=== PATIENT | female | born 2000 | race Hispanic/Latino ===

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

== ENCOUNTER 2018-02-18 18:38 | Emergency (ER) | payer OTHER ==
--- NOTE | 2018-02-18 19:32 | ER ---
Nurse's Notes [facility] Name: Lindsay Santiago Age: 17 yrs Sex: Female : 2000 Arrival Date: 02/18/2018 Time: 18:41 Bed 27 Private MD: None, None Diagnosis: Presentation: 02/18 18:44 Presenting complaint: Patient states: rory been having chest pain on the L lower breast hj around 5 pm today; reports SOB; denies nausea and vomiting;. Transition of care: patient was not received from another setting of care. Onset of symptoms was February 18, 2018. Risk Assessment: Do you want to hurt yourself or someone else? Patient reports no desire to harm self or others. Initial Sepsis Screen: Does the patient meet any 2 criteria? No. Patient's initial sepsis screen is negative. Does the patient have a suspected source of infection? No. Patient's initial sepsis screen is negative. Care prior to arrival: None. 18:44 Method Of Arrival: Ambulatory 18:44 Acuity: TAMIKA 3 Triage Assessment: 18:46 General: Appears in no apparent distress. uncomfortable, Behavior is calm, cooperative, hj appropriate for age. Pain: Complains of pain in left breast Pain does not radiate. Cardiovascular: Capillary refill < 3 seconds Patient's skin is warm and dry. 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 - Social history:: Smoking status: Patient/guardian denies using tobacco, Patient/guardian denies using alcohol. - Ebola Screening: : Patient negative for fever greater than or equal to 101.5 degrees Fahrenheit, and additional compatible Ebola Virus Disease symptoms Patient denies exposure to infectious person Patient denies travel to an Ebola-affected area in the 21 days before illness onset. Screenin:46 Abuse screen: Denies threats or abuse. Denies injuries from another. Nutritional hj screening: No deficits noted. Tuberculosis screening: No symptoms or risk factors identified. Fall Risk None identified. Assessment: 18:47 Pain: Pain began 1 day ago. hj 19:17 General: Appears in no apparent distress. comfortable, Behavior is calm, cooperative. mg2 Pain: Complains of pain in chest and left breast Pain does not radiate. Pain currently is 7 out of 10 on a pain scale. Quality of pain is described as sharp, Is intermittent. Neuro: Level of Consciousness is awake, alert, obeys commands, Oriented to person, place, time, situation. Cardiovascular: Capillary refill < 3 seconds Patient's skin is warm and dry. Respiratory: Airway is patent Respiratory effort is even, unlabored, Respiratory pattern is regular, symmetrical. GI: No signs and/or symptoms were reported involving the gastrointestinal system. : No signs and/or symptoms were reported regarding the genitourinary system. EENT: No signs and/or symptoms were reported regarding the EENT system. Derm: Skin is intact, Skin is pink, warm \T\ dry. normal. Musculoskeletal: Circulation, motion, and sensation intact. 19:26 Reassessment: patient was not seen by the physician. she wants to go home because of mg2 his son. patient left ed unseen. Vital Signs: 18:47 BP 112 / 69; Pulse 77; Resp 18; Temp 98.2(TE); Pulse Ox 97% on R/A; Weight 54.43 kg; hj Height 5 ft. 1 in. (154.94 cm); Pain 7/10; 18:47 Body Mass Index 22.67 (54.43 kg, 154.94 cm) ED Course: 18:41 Patient arrived in ED. mr 18:42 None, None is Private Physician. mr 18:46 Triage completed. hj 18:47 Arm band placed on right wrist. hj 18:47 batch maker on. Pulse ox on. NIBP on. hj 19:15 Gerard Ruby MD is Attending Physician. rn 19:17 Jeovanny Freed, BLAKE is Primary Nurse. mg2 Administered Medications: No medications were administered Outcome: 19:31 Patient left the ED. mg2 Signatures: Nirali Rod mr Gerard Ruby MD MD rn Joaquin, Henry, RN RN Jeovanny Freed RN RN mg2
--- NOTE | 2018-02-19 09:21 | EKG ---
Test Date: 2018-02-18 Test Time: 18:52:43 Automobile Mechanic Helper: SELENE MEASUREMENT RESULTS: Intervals: Rate: 74 [place]: 82 QRSD: 130 QT: 392 QTc: 435 [place]: P: 19 [place]: 82 QRS: -22 T: 95 INTERPRETIVE STATEMENTS: Normal sinus rhythm [id number] Abnormal ECG Compared to ECG 12/25/2017 17:46:19 Sinus arrhythmia no longer present Electronically Signed On 02-19-18 07:33:40 CDT by Rene Mcknight
== END 2018-02-18 19:31 | disposition left against medical advice (07) ==
LOC: ER 18:38
DX: Z53.21 Procedure and treatment not carried out due to patient leaving prior to being seen by health care provider (principal)
CPT/HCPCS: 93005; 99284

== ENCOUNTER 2019-10-18 18:08 | Emergency (ER) | payer OTHER ==
--- OUTSIDE RECORDS SUMMARY | 2019-10-18 18:13 | XMS REPORT ---
:2000 [facility] Address [address] [place] [address] Care Team Providers Name Role Phone CHAPINCITO SERRANO Unavailable Unavailable ELEANOR, DR LAURA Pak Unavailable Unavailable FARRUKH, DR FARZANA HAGEN Unavailable Unavailable NIELS, DR EASTON Unavailable Unavailable BIANCA, DR FAIZAN Reddy Unavailable Unavailable BERONICA, DR HOWELL Unavailable Unavailable HERNANDEZ JESUS, MARGARITA MENDEZ Unavailable Unavailable RISA, DR YOAV Dinh Unavailable Unavailable BA, DR ACUÑA Unavailable Unavailable KAREN, DR HOLGUIN Unavailable Unavailable POTEPALOV, DR BRIAN Tyler Unavailable Unavailable OEI, DR HAMILTON Unavailable Unavailable Problems This patient has no known problems. Allergies, Adverse Reactions, Alerts This patient has no known allergies or adverse reactions. Medications This patient has no known medications. Encounters Start End Encounter Admission Attending Care Care Encounter Date/Time Date/Time Type Type Clinicians Facility Department ID 2019-10-05 Inpatient [place] [facility] [place] [id number] 14:45:00 CHAPINCITO 2019-09-15 2019-09-15 Emergency Mellisa [facility] [id number] 10:06:00 11:30:00 LAURA 2019-09-04 2019-09-04 Emergency Mellisa [facility] [id number] 09:01:00 09:55:00 FARZANA HAGEN 2019-07-30 2019-07-31 Emergency E NIELS [facility] [place] [facility] [id number] 23:29:00 00:40:00 RUSTAM 2019-07-08 2019-07-09 Emergency E FAIZAN VALENZUELA [facility] [place] [facility] [id number] 23:31:00 01:46:00 2019-04-22 2019-04-22 Emergency E DANTE LOCO [facility] [place] [facility] [id number] 11:33:00 11:50:00 2019-03-14 2019-03-14 Emergency E RISA [facility] [id number] 10:55:00 13:00:00 2019-03-13 2019-03-13 Emergency E ARIANNE SHEARER [facility] [id number] 07:11:00 09:06:00 2019-02-05 2019-02-05 Emergency E RISA, [facility] [id number] 07:32:00 09:45:00 YOAV 2018-12-02 2018-12-02 Emergency E EZIO JONES [facility] [id number] 03:57:00 04:35:00 2018-10-04 2018-10-05 Outpatient E CK, [facility] [place] [id number] 21:48:00 03:05:00 BRIAN 2018-05-10 2018-05-10 Outpatient E DEMETRIA, [facility] [id number] 12:53:00 14:30:00 ALFONSO Results Test Description Test Time Test Comments Text Results Atomic Results Result Comments XR CHEST 1 VIEW PORTABLE 2019-07-31 00:31:52 LOCATION: H43 EXAM: XR CHEST 1 VIEW PORTABLEHISTORY: [id number]: Dyspnea TECHNIQUE: Frontal view of the chest.COMPARISON: 03/14/2019FINDINGS:The lungs are well inflated and clear. No evidence of pneumothorax or pleural effusion. The heart is normal in size. The mediastinal contours are unremarkable. Osseous structures are intact. IMPRESSION:No evidence of acute cardiopulmonary disease. D-DIMER 2019-07-31 00:23:00 Test Item Value Reference Range Comments D-DIMER (test code=DDI) <200 ng/mL D-DU 0-234 D-DIMER COMMENT (test code=DDCOM) *Level to rule out DVT or PE: <235 ng/mL D-DU* COMPREHENSIVE METABOLIC [id number] 00:17:00 Test Item Value Reference Range Comments GLUCOSE (test code=06D) 91 mg/dL 75-100 SODIUM (test code=01A) 139 mmol/L 136-145 POTASSIUM (test code=01B) 3.5 mmol/L 3.6-5.1 CHLORIDE (test code=04A) 107 mmol/L 98-107 CO2 (test code=02A) 27 mmol/L 22-32 ANION GAP (test code=ANG) 8.5 mmol/L BUN (test code=05D) 11 mg/dL 7-18 CREATININE (test code=03E) 0.8 mg/dL 0.4-1.1 BUN/CREA (test code=BCR) 13 12-20 CALCIUM (test code=09D) 8.3 mg/dL 8.3-9.5 BILI TOTAL (test code=11A) 1.1 mg/dL 0.2-1.0 PROTEIN (test code=07D) 7.5 g/dL 6.4-8.2 ALBUMIN (test code=08D) 4.1 g/dL 3.5-4.8 GLOBULIN (test code=GLB) 3.4 g/dL 1.5-3.8 ALB/GLOB (test code=AGRR) 1.2 1.0-2.6 ALK PHOS (test code=35A) 69 IU/L 42-121 AST (test code=30A) 14 IU/L <=42 ALT (test code=31A) 23 IU/L <=78 TROPONIN [id number] 00:14:00 Test Item Value Reference Range Comments TROPONIN I (test code=A84) <0.015 ng/mL 0.000-0.045 URINE [id number] 00:03:00 Test Item Value Reference Range Comments PREG UR (test code=PGU) NEGATIVE NEGATIVE CBC (INCLUDES AUTOMATED DIFFERENTIAL)2019-07-30 23:59:00 Test Item Value Reference Range Comments WBC (test code=WBC) 8.4 10\S\3/uL 4.5-11.0 RBC (test code=RBC) 4.31 10\S\6/uL 4.30-5.70 HGB (test code=HBG) 13.6 g/dL 12.0-15.5 HCT (test code=HCT) 39.3 % 35.0-44.0 MCV (test code=MCV) 91.2 fL 81.0-99.0 MCH (test code=MCH) 31.6 pg 27.0-31.0 MCHC (test code=MCHC) 34.6 g/dL 32.0-36.0 RDW (test code=RDW) 12.7 % 11.5-14.5 PLT (test code=PLT) 299 10\S\3/uL 130-400 MPV (test code=MPV) 10.5 fL 9.4-12.4 NEUTROP # (test code=NE#) 4.5 10\S\3/uL 1.6-8.0 LYMPH # (test code=LY#) 2.9 10\S\3/uL 1.1-3.5 MONOCYTE # (test code=MO#) 0.7 10\S\3/uL 0.0-1.1 EOSINOPH # (test code=EO#) 0.2 10\S\3/uL 0.0-0.7 BASOPHIL # (test code=BA#) 0.1 10\S\3/uL 0.0-0.3 IG # (test code=IG#) 0.02 10\S\3/uL 0.00-0.06 NRBC # (test code=NRBC#) 0.00 10\S\3/uL 0.00-0.01 NEUTROPH % (test code=NE%) 53.3 % 35.0-73.0 LYMPH % (test code=LY%) 35.0 % 20.0-55.0 MONO % (test code=MO%) 7.9 % 2.5-10.0 EOSINOPH % (test code=EO%) 2.9 % 0.0-5.0 BASOPHIL % (test code=BA%) 0.7 % 0.0-2.0 IG % (test code=IG%) 0.2 % 0.0-0.8 NRBC% (test code=NRBC%) 0.0 % 0.0-0.2 MANDIFF (test code=MDIFF) NO NO RBC MORPH (test code=RBCMOR) NORMAL CT ABDOMEN AND PELVIS WITH [id number] 00:48:44EXAM: CT abdomen pelvis with contrastLOCATION: [id number]: Lower abdominal painTECHNIQUE: Contrast enhanced CT of the abdomen and pelvis. Coronal and sagittalreformats are provided.This exam was performed according to our departmental dose optimizationprogram, which includes automated exposure control, adjustment of the mA and/orkV according to patient size and/or use of iterative reconstruction technique.COMPARISON: NoneFINDINGS:Thoracic: Included images of the lower chest demonstrate no abnormalities.Hepatobiliary: The liver is normal without focal lesion. The gallbladder isnormal. No biliary dilation.Pancreas: Normal. Spleen: Normal. Adrenals: Normal.Genitourinary: The kidneys are normal. Nohydronephrosis. Evaluation of thebladder is limited, but no obvious bladder abnormality is present. Gastrointestinal: No bowel obstruction or perienteric inflammation. Theappendix is normal. Vascular: No evidence of aneurysm or dissection. Lymphatics: No enlarged lymph nodes by CT size criteria.Bones/Soft Tissues: No acute osseous findings. No ventral hernias.Peritoneum/Other: No extraluminal air. No extraluminal fluid. IMPRESSION:No acute findings. Normal appendix.AMYLASE AND [id number] 00:09 :00 Test Item Value Reference Range Comments AMYLASE (test code=10A) 62 U/L 28-100 LIPASE (test code=60A) 128 IU/L 73-393 COMPREHENSIVE METABOLIC [id number] 00:09:00 Test Item Value Reference Range Comments GLUCOSE (test code=06D) 114 mg/dL 75-100 SODIUM (test code=01A) 138 mmol/L 136-145 POTASSIUM (test code=01B) 3.8 mmol/L 3.6-5.1 CHLORIDE (test code=04A) 105 mmol/L 98-107 CO2 (test code=02A) 29 mmol/L 22-32 ANION GAP (test code=ANG) 7.8 mmol/L BUN (test code=05D) 12 mg/dL 7-18 CREATININE (test code=03E) 0.9 mg/dL 0.4-1.1 BUN/CREA (test code=BCR) 14 12-20 CALCIUM (test code=09D) 8.8 mg/dL 8.3-9.5 BILI TOTAL (test code=11A) 1.0 mg/dL 0.2-1.0 PROTEIN (test code=07D) 8.2 g/dL 6.4-8.2 ALBUMIN (test code=08D) 4.3 g/dL 3.5-4.8 GLOBULIN (test code=GLB) 3.9 g/dL 1.5-3.8 ALB/GLOB (test code=AGRR) 1.1 1.0-2.6 ALK PHOS (test code=35A) 79 IU/L 42-121 AST (test code=30A) 13 IU/L <=42 ALT (test code=31A) 24 IU/L <=78 URINALYSIS WITH [id number] 00:05:00 Test Item Value Reference Range Comments COLOR (test code=COLU) YELLOW YELLOW CLARITY (test code=CLA) CLEAR CLEAR GLUCOSE UR (test code=UA GLUCOSE) NEGATIVE NEGATIVE BILI UR (test code=BILE) NEGATIVE NEGATIVE KETONES UR (test code=LUIS) NEGATIVE NEGATIVE SP GRAVITY (test code=SPGR) 1.022 1.005-1.030 PH UR (test code=PH) 7.0 4.5-8.0 PROTEIN UR (test code=PU) NEGATIVE NEGATIVE UROBIL UR (test code=UROQ) 1.0 EU/dL 0.2-1.0 NITRITE UR (test code=NITRITE) NEGATIVE NEGATIVE BLOOD UR (test code=UA BLOOD) 2+ NEGATIVE LEUK ES UR (test code=LEUK) 2+ NEGATIVE WBC UR (test code=UWBC) 5 /HPF 0-5 RBC UR (test code=URBC) 6 /HPF 0-2 EPITH UR (test code=UEPC) FEW /LPF FEW BACTERIA UR (test code=UBACT) FEW /HPF NONE CAST UR (test code=CAST) /LPF NONE CRYSTAL UR (test code=CRYU) / LPF NONE MUCUS UR (test code=MUC) / HPF NONE AMORPH UR (test code=MELIDA) / HPF NONE TRICH UR (test code=UTRICH) /HPF NONE YEAST UR (test code=UY) /HPF NONE SPERM UR (test code=USPERM) /HPF NONE SERUM [id number] 00:01:00 Test Item Value Reference Range Comments PREG SRM (test code=PGS) NEGATIVE NEGATIVE CBC (INCLUDES AUTOMATED DIFFERENTIAL)2019-07-08 23:54:00 Test Item Value Reference Range Comments WBC (test code=WBC) 8.4 10\S\3/uL 4.5-11.0 RBC (test code=RBC) 4.48 10\S\6/uL 4.30-5.70 HGB (test code=HBG) 14.1 g/dL 12.0-15.5 HCT (test code=HCT) 41.6 % 35.0-44.0 MCV (test code=MCV) 92.9 fL 81.0-99.0 MCH (test code=MCH) 31.5 pg 27.0-31.0 MCHC (test code=MCHC) 33.9 g/dL 32.0-36.0 RDW (test code=RDW) 12.7 % 11.5-14.5 PLT (test code=PLT) 314 10\S\3/uL 130-400 MPV (test code=MPV) 10.6 fL 9.4-12.4 NEUTROP # (test code=NE#) 4.9 10\S\3/uL 1.6-8.0 LYMPH # (test code=LY#) 2.5 10\S\3/uL 1.1-3.5 MONOCYTE # (test code=MO#) 0.7 10\S\3/uL 0.0-1.1 EOSINOPH # (test code=EO#) 0.3 10\S\3/uL 0.0-0.7 BASOPHIL # (test code=BA#) 0.1 10\S\3/uL 0.0-0.3 IG # (test code=IG#) 0.03 10\S\3/uL 0.00-0.06 NRBC # (test code=NRBC#) 0.00 10\S\3/uL 0.00-0.01 NEUTROPH % (test code=NE%) 57.8 % 35.0-73.0 LYMPH % (test code=LY%) 29.1 % 20.0-55.0 MONO % (test code=MO%) 8.6 % 2.5-10.0 EOSINOPH % (test code=EO%) 3.4 % 0.0-5.0 BASOPHIL % (test code=BA%) 0.7 % 0.0-2.0 IG % (test code=IG%) 0.4 % 0.0-0.8 NRBC% (test code=NRBC%) 0.0 % 0.0-0.2 MANDIFF (test code=MDIFF) NO NO RBC MORPH (test code=RBCMOR) NORMAL PROTHROMBIN TIME/[id number] 05:36:00 Test Item Value Reference Range Comments PROTIME (BEAKER) (test brre=072) 14.5 seconds 11.9-14.2 INR (BEAKER) (test eqbz=672) 1.2 <=5.9 Effective 12/22/2018: PT Reference Range ChangeNew: 11.9-14.2 Previous: 11.7- 14.7RECOMMENDED COUMADIN/WARFARIN INR THERAPY RANGESSTANDARD DOSE: 2.0-3.0 Includes: PROPHYLAXIS for venous thrombosis, systemic embolization; TREATMENT for venous thrombosis and/or pulmonary embolus.HIGH RISK: Target INR is2.5-3.5 for patients wiht mechanical heart valves.Within 24 hours, if on [id number] 05:22:00 Test Item Value Reference Range Comments BLOOD UREA NITROGEN (BEAKER) (test hitf=598) 7 mg/dL 7-21 [id number] 05:22:00 Test Item Value Reference Range Comments SODIUM (BEAKER) (test gpfu=651) 139 meq/L 136-145 POTASSIUM (BEAKER) (test sycz=547) 3.8 meq/L 3.5-5.1 CHLORIDE (BEAKER) (test jgwa=319) 109 meq/L 98-107 CO2 (BEAKER) (test qlhj=801) 23 meq/L 22- [id number] 05:22:00 Test Item Value Reference Range Comments CREATININE (BEAKER) (test 0.77 mg/dL 0.57-1.25 tgbi=879) EGFR (BEAKER) (test 96 mL/min/1.73 sq m ESTIMATED GFR IS NOT rcdn=8768) ACCURATE CREATININE CLEARANCE IN PREDICTING GLOMERULAR FILTRATION RATE. ESTIMATED GFR IS NOT APPLICABLE FOR DIALYSIS PATIENTS. Specimen slightly ictericHEMOGLOBIN AND [id number] 05:11:00 Test Item Value Reference Range Comments HEMOGLOBIN (BEAKER) (test vguv=993) 13.1 GM/DL 11.2-15.7 HEMATOCRIT (BEAKER) (test kjpy=946) 39.4 % 34.1-44.9 [id number] 07:12:00 Test Item Value Reference Range Comments MAGNESIUM (BEAKER) (test kqsg=628) 2.2 mg/dL 1.6-2.6 BASIC METABOLIC [id number] 07:12:00 Test Item Value Reference Range Comments SODIUM (BEAKER) (test 141 meq/L 136-145 zaaw=598) POTASSIUM (BEAKER) (test 3.5 meq/L 3.5-5.1 jdwm=577) CHLORIDE (BEAKER) (test 106 meq/L 98-107 yywg=962) CO2 (BEAKER) (test 25 meq/L 22-29 zbzu=726) BLOOD UREA NITROGEN 12 mg/dL 7-21 (BEAKER) (test umgd=639) CREATININE (BEAKER) (test 0.92 mg/dL 0.57-1.25 eyja=028) GLUCOSE RANDOM (BEAKER) 95 mg/dL 70-105 (test cvpk=417) CALCIUM (BEAKER) (test 9.6 mg/dL 8.4-10.2 kgyo=628) EGFR (BEAKER) (test 78 mL/min/1.73 sq m ESTIMATED GFR IS NOT lwdi=3210) ACCURATE CREATININE CLEARANCE IN PREDICTING GLOMERULAR FILTRATION RATE. ESTIMATED GFR IS NOT APPLICABLE FOR DIALYSIS PATIENTS. Specimen slightly ictericCBC (HEMOGRAM ONLY)2019-04-19 06:56:00 Test Item Value Reference Range Comments WHITE BLOOD CELL COUNT (BEAKER) (test fexs=011) 6.2 K/ L 3.5-10.5 RED BLOOD CELL COUNT (BEAKER) (test tpkk=161) 4.57 M/ L 3.93-5.22 HEMOGLOBIN (BEAKER) (test akxu=082) 14.1 GM/DL 11.2-15.7 HEMATOCRIT (BEAKER) (test jkql=494) 42.5 % 34.1-44.9 MEAN CORPUSCULAR VOLUME (BEAKER) (test mbbh=149) 93.0 fL 79.4-94.8 MEAN CORPUSCULAR HEMOGLOBIN (BEAKER) (test 30.9 pg 25.6-32.2 qwlv=512) MEAN CORPUSCULAR HEMOGLOBIN CONC (BEAKER) (test 33.2 GM/DL 32.2-35.5 ksea=510) RED CELL DISTRIBUTION WIDTH (BEAKER) (test 12.7 % 11.7-14.4 hxmy=292) PLATELET COUNT (BEAKER) (test nbie=763) 296 K/CU MM 150-450 MEAN PLATELET VOLUME (BEAKER) (test takw=384) 10.7 fL 9.4-12.3 NUCLEATED RED BLOOD CELLS (BEAKER) (test 0 /100 WBC 0-0 nece=602) BRAIN NATRIURETIC [id number] 12:46:00 Test Item Value Reference Range Comments proBNP (test code=PBNP) 15 pg/mL 0-125 AMYLASE AND [id number] 12:39:00 Test Item Value Reference Range Comments AMYLASE (test code=10A) 39 U/L 28-100 LIPASE (test code=60A) 76 IU/L 73-393 COMPREHENSIVE METABOLIC [id number] 12:39:00 Test Item Value Reference Range Comments GLUCOSE (test code=06D) 81 mg/dL 75-100 SODIUM (test code=01A) 141 mmol/L 136-145 POTASSIUM (test code=01B) 3.9 mmol/L 3.6-5.1 CHLORIDE (test code=04A) 106 mmol/L 98-107 CO2 (test code=02A) 24 mmol/L 22-32 ANION GAP (test code=ANG) 14.9 mmol/L BUN (test code=05D) 14 mg/dL 7-18 CREATININE (test code=03E) 0.8 mg/dL 0.4-1.1 BUN/CREA (test code=BCR) 17 12-20 CALCIUM (test code=09D) 9.4 mg/dL 8.3-9.5 BILI TOTAL (test code=11A) 3.3 mg/dL 0.2-1.0 PROTEIN (test code=07D) 7.6 g/dL 6.4-8.2 ALBUMIN (test code=08D) 4.4 g/dL 3.5-4.8 GLOBULIN (test code=GLB) 3.2 g/dL 1.5-3.8 ALB/GLOB (test code=AGRR) 1.4 1.0-2.6 ALK PHOS (test code=35A) 64 IU/L 42-121 AST (test code=30A) 19 IU/L <=42 ALT (test code=31A) 31 IU/L <=78 SERUM [id number] 12:37:00 Test Item Value Reference Range Comments PREG SRM (test code=PGS) NEGATIVE NEGATIVE CARDIAC [id number] 12:37:00 Test Item Value Reference Range Comments TROPONIN I (test code=A84) <0.015 ng/mL 0.000-0.045 URINALYSIS WITH [id number] 12:34:00 Test Item Value Reference Range Comments COLOR (test code=COLU) DK YELLOW YELLOW CLARITY (test code=CLA) CLEAR CLEAR GLUCOSE UR (test code=UA GLUCOSE) NEGATIVE NEGATIVE BILI UR (test code=BILE) NEGATIVE NEGATIVE KETONES UR (test code=LUIS) 1+ NEGATIVE SP GRAVITY (test code=SPGR) 1.029 1.005-1.030 PH UR (test code=PH) 6.0 4.5-8.0 PROTEIN UR (test code=PU) TRACE NEGATIVE UROBIL UR (test code=UROQ) 0.2 EU/dL 0.2-1.0 NITRITE UR (test code=NITRITE) NEGATIVE NEGATIVE BLOOD UR (test code=UA BLOOD) NEGATIVE NEGATIVE LEUK ES UR (test code=LEUK) NEGATIVE NEGATIVE WBC UR (test code=UWBC) 0 /HPF 0-5 RBC UR (test code=URBC) 0 /HPF 0-2 EPITH UR (test code=UEPC) FEW /LPF FEW BACTERIA UR (test code=UBACT) NONE /HPF NONE CAST UR (test code=CAST) /LPF NONE CRYSTAL UR (test code=CRYU) / LPF NONE MUCUS UR (test code=MUC) / HPF NONE AMORPH UR (test code=MELIDA) / HPF NONE TRICH UR (test code=UTRICH) /HPF NONE YEAST UR (test code=UY) /HPF NONE SPERM UR (test code=USPERM) /HPF NONE [id number] 12:33:00 Test Item Value Reference Range Comments MAGNESIUM (test code=48A) 2.4 mg/dL 1.8-2.4 PRO TIME AND [id number] 12:28:00 Test Item Value Reference Range Comments PT (test code=TT) 13.8 s 9.8-13.6 INR (test code=INR) 1.2 INRH (test code=INRH) SUGGESTED THERAPEUTIC RANGE FOR INR: 2.5 - 3.5 For Patients with Prosthetic Valves or Patients with recurrent Thromboembolic Events 2.0 - 3.0 For Most Other Applications PTT (test code=PTT) 34.4 s 20.2-38.0 PTTH (test code=PTTH) To monitor the effectiveness of heparin, we offer the Anti-Xa (Heparin Assay). It can be used for either unfractionated or LMW Heparin. Order Code is ANTI-XA CBC (INCLUDES AUTOMATED DIFFERENTIAL)2019-03-14 12:24:00 Test Item Value Reference Range Comments WBC (test code=WBC) 7.0 10\S\3/uL 4.5-13.0 RBC (test code=RBC) 4.91 10\S\6/uL 4.30-5.70 HGB (test code=HBG) 15.4 g/dL 12.0-15.5 HCT (test code=HCT) 43.9 % 35.0-44.0 MCV (test code=MCV) 89.4 fL 81.0-99.0 MCH (test code=MCH) 31.4 pg 27.0-31.0 MCHC (test code=MCHC) 35.1 g/dL 32.0-36.0 RDW (test code=RDW) 12.6 % 11.5-14.5 PLT (test code=PLT) 301 10\S\3/uL 130-400 MPV (test code=MPV) 11.1 fL 9.4-12.4 NEUTROP # (test code=NE#) 4.6 10\S\3/uL 1.6-8.0 LYMPH # (test code=LY#) 1.7 10\S\3/uL 1.1-3.5 MONOCYTE # (test code=MO#) 0.6 10\S\3/uL 0.0-1.1 EOSINOPH # (test code=EO#) 0.1 10\S\3/uL 0.0-0.7 BASOPHIL # (test code=BA#) 0.1 10\S\3/uL 0.0-0.3 IG # (test code=IG#) 0.03 10\S\3/uL 0.00-0.06 NRBC # (test code=NRBC#) 0.00 10\S\3/uL 0.00-0.01 NEUTROPH % (test code=NE%) 65.5 % 35.0-73.0 LYMPH % (test code=LY%) 24.1 % 20.0-55.0 MONO % (test code=MO%) 8.1 % 2.5-10.0 EOSINOPH % (test code=EO%) 0.9 % 0.0-5.0 BASOPHIL % (test code=BA%) 1.0 % 0.0-2.0 IG % (test code=IG%) 0.4 % 0.0-0.8 NRBC% (test code=NRBC%) 0.0 % 0.0-0.2 MANDIFF (test code=MDIFF) NO NO RBC MORPH (test code=RBCMOR) NORMAL XR CHEST 2 [id number] 11:40:31Exam: Chest x-ray 2 viewsHISTORY: Chest painLocation: [id number]:The heart size is normal and lung soria are clear. Osseous structures areintact.IMPRESSION:1. Normal chest. No change since .DRUGS OF ABUSE *WW*2019-03-13 08:55:00 Test Item Value Reference Range Comments DRUG SCRN (test code=HDOA) URINE DRUG SCREEN This is an unconfirmed screening result and should not be used for non-medical purposes CANNABINOD (test code=88C) POSITIVE NEGATIVE AMPHETAMINE (test code=84A) POSITIVE NEGATIVE BENZODIAZP (test code=86A) Negative NEGATIVE BARBITURAT (test code=85A) Negative NEGATIVE OPIATES (test code=92B) Negative NEGATIVE COCAINE (test code=87A) Negative NEGATIVE PHENCYCLID (test code=66A) Negative NEGATIVE METHADONE (test code=64A) Negative NEGATIVE DOAH (test code=DOAH.) URINE DRUG SCREEN Cut-off values are as follows: Cannabinoids 50 ng/mL Cocaine 300 ng/mL Amphetamines 1000 ng/mL Phencyclidine 25 ng/mL Benzodiazepines 200 ng.mL Methadone 300 ng/mL Barbiturates 200 ng/mL Opiates 2000 ng/mL URINALYSIS 2019-03-13 08:47:00 Test Item Value Reference Range Comments COLOR (test code=COLU) YELLOW YELLOW CLARITY (test code=CLA) CLEAR CLEAR GLUCOSE UR (test code=UA GLUCOSE) NEGATIVE NEGATIVE BILI UR (test code=BILE) NEGATIVE NEGATIVE KETONES UR (test code=LUIS) 2+ NEGATIVE SP GRAVITY (test code=SPGR) 1.010 1.005-1.030 PH UR (test code=PH) 7.5 4.5-8.0 PROTEIN UR (test code=PU) NEGATIVE NEGATIVE UROBIL UR (test code=UROQ) 0.2 EU/dL 0.2-1.0 NITRITE UR (test code=NITRITE) NEGATIVE NEGATIVE BLOOD UR (test code=UA BLOOD) NEGATIVE NEGATIVE LEUK ES UR (test code=LEUK) NEGATIVE NEGATIVE AUAM (test code=WAUAM) NO NO THYROID PANEL/SCREEN (TSH) 2019-03-13 08:35:00 Test Item Value Reference Range Comments TSH (test code=WTSH) 2.880 uIU/mL 0.358-3.740 COMPREHENSIVE METABOLIC ARCHER 2019-03-13 08:11:00 Test Item Value Reference Range Comments GLUCOSE (test code=06D) 100 mg/dL 75-100 SODIUM (test code=01A) 138 mmol/L 136-145 POTASSIUM (test code=01B) 3.3 mmol/L 3.6-5.1 CHLORIDE (test code=04A) 100 mmol/L 98-107 CO2 (test code=02A) 24 mmol/L 22-32 ANION GAP (test code=ANG) 17.3 mmol/L BUN (test code=05D) 8 mg/dL 7-18 CREATININE (test code=03E) 1.2 mg/dL 0.4-1.1 BUN/CREA (test code=BCR) 7 12-20 CALCIUM (test code=09D) 9.9 mg/dL 8.3-9.5 BILI TOTAL (test code=11A) 3.5 mg/dL 0.2-1.0 PROTEIN (test code=07D) 9.2 g/dL 6.4-8.2 ALBUMIN (test code=08D) 5.2 g/dL 3.5-4.8 GLOBULIN (test code=GLB) 4.0 g/dL 1.5-3.8 ALB/GLOB (test code=AGRR) 1.3 1.0-2.6 ALK PHOS (test code=35A) 73 IU/L 42-121 AST (test code=30A) 15 IU/L <=42 ALT (test code=31A) 25 IU/L <=78 PRO TIME AND PTT 2019-03-13 08:10:00 Test Item Value Reference Range Comments PT (test code=TT) 14.0 s 9.8-13.6 INR (test code=INR) 1.2 INRH (test code=INRH) SUGGESTED THERAPEUTIC RANGE FOR INR: 2.5 - 3.5 For Patients with Prosthetic Valves or Patients with recurrent Thromboembolic Events 2.0 - 3.0 For Most Other Applications PTT (test code=PTT) 31.3 s 20.2-38.0 PTTH (test code=PTTH) To monitor the effectiveness of heparin, we offer the Anti-Xa (Heparin Assay). It can be used for either unfractionated or LMW Heparin. Order Code is ANTI-XA SERUM MONOCLONAL 2019-03-13 08:05:00 Test Item Value Reference Range Comments PREG SRM (test code=PGS) NEGATIVE NEGATIVE MAGNESIUM 2019-03-13 07:59:00 Test Item Value Reference Range Comments MAGNESIUM (test code=48A) 2.0 mg/dL 1.8-2.4 CBC (INCLUDES AUTOMATED DIFFERENTIAL)*[id number] 07:51:00 Test Item Value Reference Range Comments WBC (test code=WBC) 11.3 10\S\3/uL 4.5-13.0 RBC (test code=RBC) 5.02 10\S\6/uL 4.30-5.70 HGB (test code=HBG) 15.9 g/dL 12.0-15.5 HCT (test code=HCT) 45.0 % 35.0-44.0 MCV (test code=MCV) 89.6 fL 81.0-99.0 MCH (test code=MCH) 31.7 pg 27.0-31.0 MCHC (test code=MCHC) 35.3 g/dL 32.0-36.0 RDW (test code=RDW) 12.4 % 11.5-14.5 PLT (test code=PLT) 346 10\S\3/uL 130-400 MPV (test code=MPV) 10.8 fL 9.4-12.4 NEUTROP # (test code=NE#) 8.9 10\S\3/uL 1.6-8.0 LYMPH # (test code=LY#) 1.6 10\S\3/uL 1.1-3.5 MONOCYTE # (test code=MO#) 0.8 10\S\3/uL 0.0-1.1 EOSINOPH # (test code=EO#) 0.0 10\S\3/uL 0.0-0.7 BASOPHIL # (test code=BA#) 0.0 10\S\3/uL 0.0-0.3 IG # (test code=IG#) 0.03 10\S\3/uL 0.00-0.06 NRBC # (test code=NRBC#) 0.00 10\S\3/uL 0.00-0.01 NEUTROPH % (test code=NE%) 78.6 % 35.0-73.0 LYMPH % (test code=LY%) 14.0 % 20.0-55.0 MONO % (test code=MO%) 6.7 % 2.5-10.0 EOSINOPH % (test code=EO%) 0.0 % 0.0-5.0 BASOPHIL % (test code=BA%) 0.4 % 0.0-2.0 IG % (test code=IG%) 0.3 % 0.0-0.8 NRBC% (test code=NRBC%) 0.0 % 0.0-0.2 MANDIFF (test code=WMDIFF) NO NO RBC MORPH (test code=WRBCMOR) NORMAL MR, PELVIS, WITHOUT / WITH IV [id number] 14:13:00FINAL REPORT EXAM: Lumbosacral plexus without and with IV contrast. 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 COMPARISON: None. TECHNIQUE: 2-D and 3- D coronal T2 with fat saturation, coronal STIR, precontrast coronal T1 with fat saturation. Axial, sagittal and coronal MIP images were reformatted from the axial 3-D T2 source data. Postcontrast axial and coronal T1 with and without fat saturation. IV contrast: 6 cc Gadavist. FINDINGS: The lumbosacral plexus is symmetricand size and signal intensity. The included segments of the femoral nerves appear symmetric in size and signal intensity. No mass or compressive lesion identified. No abnormal enhancement. The psoas, piriform and gluteal muscles appear symmetric in size and signal intensity without evidence of atrophy. No marrow signal changes within the included lumbar spine, sacrum and pelvis. Normal lumbar lordotic curvature is maintained. Lumbar canal and foramina are patent. IMPRESSION: No lumbosacral plexus abnormalities. Signed: Rubén Varela MDReport Verified Date/Time: 03/02/2019 14:13:39 Reading Location: [facility] Reading Room [address] [place] [address] XR ABDOMEN 2 VIEWS W/PA [id number] 09 :16:58EXAM: Chest and abdomen series, 3 viewsDictation location: [id number]: Upper abdominal painCOMPARISON: NoneDISCUSSION: An upright view of the chest and flat and upright views of theabdomen are submitted. No consolidation, pleural effusion, or pneumothorax isseen. The cardiomediastinal silhouette is within normal limits. The bowel gaspattern is nonobstructive. No intra- abdominal free air is seen. Mild retainedstool is seen within the colon. No acute bony abnormalities are identified.IMPRESSION: No evidence of acute thoracic abnormality, bowel obstruction, orintra-abdominal free air. There is mild retained stool within the colon.AMYLASE AND [id number] 09:04:00 Test Item Value Reference Range Comments AMYLASE (test code=10A) 46 U/L 28-100 LIPASE (test code=60A) 88 IU/L 73-393 COMPREHENSIVE METABOLIC [id number] 09:04:00 Test Item Value Reference Range Comments GLUCOSE (test code=06D) 101 mg/dL 75-100 SODIUM (test code=01A) 140 mmol/L 136-145 POTASSIUM (test code=01B) 3.7 mmol/L 3.6-5.1 CHLORIDE (test code=04A) 104 mmol/L 98-107 CO2 (test code=02A) 27 mmol/L 22-32 ANION GAP (test code=ANG) 12.7 mmol/L BUN (test code=05D) 11 mg/dL 7-18 CREATININE (test code=03E) 0.9 mg/dL 0.4-1.1 BUN/CREA (test code=BCR) 12 12-20 CALCIUM (test code=09D) 9.2 mg/dL 8.3-9.5 BILI TOTAL (test code=11A) 1.7 mg/dL 0.2-1.0 PROTEIN (test code=07D) 8.4 g/dL 6.4-8.2 ALBUMIN (test code=08D) 4.5 g/dL 3.5-4.8 GLOBULIN (test code=GLB) 3.9 g/dL 1.5-3.8 ALB/GLOB (test code=AGRR) 1.2 1.0-2.6 ALK PHOS (test code=35A) 74 IU/L 42-121 AST (test code=30A) 23 IU/L <=42 ALT (test code=31A) 36 IU/L <=78 [id number] 08:59:00 Test Item Value Reference Range Comments MAGNESIUM (test code=48A) 2.2 mg/dL 1.8-2.4 SERUM [id number] 08:57:00 Test Item Value Reference Range Comments PREG SRM (test code=PGS) NEGATIVE NEGATIVE URINALYSIS WITH [id number] 08:57:00 Test Item Value Reference Range Comments COLOR (test code=COLU) YELLOW YELLOW CLARITY (test code=CLA) CLOUDY CLEAR GLUCOSE UR (test code=UA GLUCOSE) NEGATIVE NEGATIVE BILI UR (test code=BILE) NEGATIVE NEGATIVE KETONES UR (test code=LUIS) NEGATIVE NEGATIVE SP GRAVITY (test code=SPGR) 1.023 1.005-1.030 PH UR (test code=PH) 7.0 4.5-8.0 PROTEIN UR (test code=PU) TRACE NEGATIVE UROBIL UR (test code=UROQ) 1.0 EU/dL 0.2-1.0 NITRITE UR (test code=NITRITE) NEGATIVE NEGATIVE BLOOD UR (test code=UA BLOOD) NEGATIVE NEGATIVE LEUK ES UR (test code=LEUK) NEGATIVE NEGATIVE WBC UR (test code=UWBC) 1 /HPF 0-5 RBC UR (test code=URBC) 0 /HPF 0-2 EPITH UR (test code=UEPC) FEW /LPF FEW BACTERIA UR (test code=UBACT) NONE /HPF NONE CAST UR (test code=CAST) /LPF NONE CRYSTAL UR (test code=CRYU) / LPF NONE MUCUS UR (test code=MUC) / HPF NONE AMORPH UR (test code=MELIDA) / HPF NONE TRICH UR (test code=UTRICH) /HPF NONE YEAST UR (test code=UY) /HPF NONE SPERM UR (test code=USPERM) /HPF NONE CBC (INCLUDES AUTOMATED DIFFERENTIAL)2019-02-05 08:50:00 Test Item Value Reference Range Comments WBC (test code=WBC) 5.8 10\S\3/uL 4.5-13.0 RBC (test code=RBC) 4.58 10\S\6/uL 4.30-5.70 HGB (test code=HBG) 14.0 g/dL 12.0-15.5 HCT (test code=HCT) 42.2 % 35.0-44.0 MCV (test code=MCV) 92.1 fL 81.0-99.0 MCH (test code=MCH) 30.6 pg 27.0-31.0 MCHC (test code=MCHC) 33.2 g/dL 32.0-36.0 RDW (test code=RDW) 11.9 % 11.5-14.5 PLT (test code=PLT) 319 10\S\3/uL 130-400 MPV (test code=MPV) 10.9 fL 9.4-12.4 NEUTROP # (test code=NE#) 3.5 10\S\3/uL 1.6-8.0 LYMPH # (test code=LY#) 1.8 10\S\3/uL 1.1-3.5 MONOCYTE # (test code=MO#) 0.4 10\S\3/uL 0.0-1.1 EOSINOPH # (test code=EO#) 0.1 10\S\3/uL 0.0-0.7 BASOPHIL # (test code=BA#) 0.1 10\S\3/uL 0.0-0.3 IG # (test code=IG#) 0.01 10\S\3/uL 0.00-0.06 NRBC # (test code=NRBC#) 0.00 10\S\3/uL 0.00-0.01 NEUTROPH % (test code=NE%) 60.0 % 35.0-73.0 LYMPH % (test code=LY%) 30.6 % 20.0-55.0 MONO % (test code=MO%) 6.6 % 2.5-10.0 EOSINOPH % (test code=EO%) 1.6 % 0.0-5.0 BASOPHIL % (test code=BA%) 1.0 % 0.0-2.0 IG % (test code=IG%) 0.2 % 0.0-0.8 NRBC% (test code=NRBC%) 0.0 % 0.0-0.2 MANDIFF (test code=MDIFF) NO NO RBC MORPH (test code=RBCMOR) NORMAL U/S PELVIS *OW*2018-10-05 01:20:47LOCATION: [id number]: 18-year-old female who presents with pelvic pain.COMMENT:Sonographic imaging of the pelvis was obtained transabdominally. Grayscale,color-flow, and Doppler waveform imaging modalities were utilized.The patient refused the endovaginal examination.A CT study of the abdomen and pelvis obtained 10/04/18 is available forcomparison.The uterus is unremarkable, measuring 8.8 x 3.2 x 4.3cm with an 11 mm thickendometrial stripe.Both ovaries are seen. The right ovary measures 28 x 23 x 33 mm and left ovarymeasures 45 x 24 x 29 mm. Both ovaries exhibit arterial blood flow on theDoppler study. A complex appearing cyst is seen arising from the left ovaryhaving the appearance of a hemorrhagic cyst. This cyst measures [id number] mm in diameter.Free fluid is seen in the pelvic cul-de-sac in keeping with recent CT study.IMPRESSION:A complex appearing cyst having the appearance of a hemorrhagic cyst is seen inthis patient's left ovary. A small volume of free fluid is also seen in thepelvic cul-de- sac.Otherwise is pelvic ultrasound examination is unremarkable.CT ABDOMEN AND PELVIS WITH CONTRAST *OW*2018-10-05 00:17:42LOCATION: [id number]: CT ABDOMEN AND PELVIS WITH CONTRAST *OW*HISTORY: [id number]: Lower abdominal pain TECHNIQUE: Axial imaging of the abdomen and pelvis from the lung base to thepubic symphysis following administration of 90 mL Omnipaque 300 intravenouscontrast. Venous and delayed phase images are obtained Sagittal and coronalreconstructions. CT scan performed using appropriate/available dose optimization/reductiontechniques.DLP 1042 mGy*cmCOMPARISON: None.FINDINGS:Lung base:The visualized lung base is clear. The heart size is normal. Nopericardial or pleural effusion is present. Liver/spleen: The liver is normal in size and contour. A 5 mm low-density inthe hepatic dome is too small to characterize, but likely represents a smallcyst. The spleen is unremarkable.Biliary system: The gallbladder is unremarkably distended. No biliary ductdilatation.Pancreas: Unremarkable.Adrenal glands: Normal. Kidneys: Unremarkable. Vascular: Normal caliber abdominal aorta. Normal portal venous opacification.Lymph nodes: No abdominal lymphadenopathy. Pelvic structures: Small to moderate pelvic free fluid is present. The mildasymmetric prominence of the left ovary compared to the right. The uterus isnormal for age.The urinary bladder is unremarkably. There is no pelviclymphadenopathy.Gastrointestinal tract: Moderate formed fecal matter is present throughout thecolon. There is fecalization of normal caliber smallbowel loops, compatiblewith constipation. The stomach is moderately distended with ingested contents.No abnormal small bowel dilatation. Normal caliber appendix is identified. Nofocal fluid collections, ascites or evidence of pneumoperitoneum. Bones and soft tissues: The osseous structures are intact.IMPRESSION:1. Small to moderate pelvic free fluid. Mild asymmetric prominence of the leftovary compared to the right. If the patient is focally symptomatic, considerpelvic ultrasound.2. Radiographic findings compatible with constipation.3. The stomach is moderately distended with ingested contents, correlate forrecent oral intake.CHEM8+ i-STAT OW2018-10-04 22:26:00 Test Item Value Reference Range Comments SODIUM (test code=FE) 142 mmol/L 138-146 POTASSIUM (test code=KI) 3.5 mmol/L 3.5-4.9 CHLORIDE (test code=CLI) 102 mmol/L 98-109 CA IONIZED (test code=ICAI) 1.10 mmol/L 1.12-1.32 GLUCOSE (test code=GLUI) 95 mg/dL 75-100 TCO2 (test code=TCO2) 28 mmol/L 24-29 BUN (test code=BUN1) 8 mg/dL 8-26 CREATININE (test code=CREAI) 0.7 mg/dL 0.6-1.3 ANION GAP (test code=GANG) 16.0 mmol/L HGB (test code=MHB) 16.0 g/dL 12.0-17.0 HCT (test code=MHCT) 47.0 % 38.0-51.0 URINE OW2018-10-04 22:24:00 Test Item Value Reference Range Comments PREG UR (test code=PGU) Negative NEGATIVE CBC (INCLUDES AUTOMATED DIFFERENTIAL) *2018-10-04 22:22:00 Test Item Value Reference Range Comments WBC (test code=WBC) 12.5 10\S\3/uL 4.5-13.0 RBC (test code=RBC) 4.70 10\S\6/uL 4.30-5.70 HGB (test code=HBG) 15.7 g/dL 12.0-15.5 HCT (test code=HCT) 44.6 % 35.0-44.0 MCV (test code=MCV) 94.8 fL 81.0-99.0 MCH (test code=MCH) 33.4 pg 27.0-31.0 MCHC (test code=MCHC) 35.2 g/dL 32.0-36.0 RDW (test code=RDW) 14.5 % 11.5-14.5 PLT (test code=PLT) 295 10\S\3/uL 130-400 MPV (test code=OMPV) 8.3 fL 6.2-10.2 NEUTROP # (test code=NE#) 9.6 10\S\3/uL 1.6-8.0 LYMPH # (test code=LY#) 2.2 10\S\3/uL 1.1-3.5 MID # (test code=GMID#) 0.8 10\S\3/uL 0.0-1.1 GRA % (test code=GRA%) 76.4 % 35.0-73.0 LYMPH % (test code=GLY%) 17.2 % 20.0-55.0 MID % (test code=GMID%) 6.4 % 0.0-10.0 URINALYSIS W/O MICROSCOPICOW2018-10-04 22:18:00 Test Item Value Reference Range Comments COLOR (test code=COLU) Yellow YELLOW CLARITY (test code=CLA) Cloudy CLEAR GLUCOSE UR (test code=UA Negative NEGATIVE GLUCOSE) BILI UR (test code=BILE) Negative NEGATIVE KETONES UR (test code=LUIS) Negative NEGATIVE SP GRAVITY (test code=SPGR) 1.025 1.005-1.030 PH UR (test code=PH) 7.0 4.5-8.0 PROTEIN UR (test code=PU) Negative NEGATIVE NITRITE UR (test Negative NEGATIVE code=NITRITE) UROBIL UR (test code=GUROQ) 1.0 E.U./dL UROBIL UR (test code=GUROQC) UROBILINOGEN REFERENCE RANGE 0.2 - 1.0 EU/dL BLOOD UR (test code=UA Negative NEGATIVE BLOOD) LEUK ES UR (test code=LEUK) Negative NEGATIVE DRUGS OF ABUSE*OW*2018-05-10 13:45:00 Test Item Value Reference Range Comments DRUG SCRN (test code=HDOA) URINE DRUG SCREEN This is an unconfirmed screening result and should not be used for non-medical purposes PHENCYCLID (test code=GPCP) Negative NEGATIVE BENZODIAZE (test code=GBZO) Negative NEGATIVE COCAINE (test code=GCOC) Negative NEGATIVE AMPHETAMIN (test code=GAMP) Negative NEGATIVE THC (test code=GTHC) Negative NEGATIVE OPIATES (test code=SHADY) Negative NEGATIVE BARBITURAT (test code=GBAR) Negative NEGATIVE TCA (test code=GTCA) Negative NEGATIVE DOAH (test code=DOAH) URINE DRUG CREEN CUT OFF VALUES Amphetamines 1000 ng/mL Barbituates 300 ng/mL Benzodiazepines 300 ng/mL Cocaine 300 ng/mL Opiates 300 ng/mL Phencyclidine 25 ng/mL THC 50 ng/mL Tricyclic Antidepressants 1000 ng/mL CHEM8+ i-STAT OW2018-05-10 13:41:00 Test Item Value Reference Range Comments SODIUM (test code=FE) 140 mmol/L 138-146 POTASSIUM (test code=KI) 4.0 mmol/L 3.5-4.9 CHLORIDE (test code=CLI) 101 mmol/L 98-109 CA IONIZED (test code=ICAI) 1.25 mmol/L 1.12-1.32 GLUCOSE (test code=GLUI) 85 mg/dL 75-100 TCO2 (test code=TCO2) 27 mmol/L 24-29 BUN (test code=BUN1) 18 mg/dL 8-26 CREATININE (test code=CREAI) 0.8 mg/dL 0.6-1.3 ANION GAP (test code=GANG) 17.0 mmol/L HGB (test code=MHB) 15.3 g/dL 12.0-17.0 HCT (test code=MHCT) 45.0 % 38.0-51.0 CBC (INCLUDES AUTOMATED DIFFERENTIAL) *2018-05-10 13:40:00 Test Item Value Reference Range Comments WBC (test code=WBC) 5.7 10\S\3/uL 4.5-13.0 RBC (test code=RBC) 4.71 10\S\6/uL 4.30-5.70 HGB (test code=HBG) 15.6 g/dL 12.0-15.5 HCT (test code=HCT) 44.0 % 35.0-44.0 MCV (test code=MCV) 93.4 fL 81.0-99.0 MCH (test code=MCH) 33.1 pg 27.0-31.0 MCHC (test code=MCHC) 35.5 g/dL 32.0-36.0 RDW (test code=RDW) 13.0 % 11.5-14.5 PLT (test code=PLT) 251 10\S\3/uL 130-400 MPV (test code=OMPV) 8.6 fL 6.2-10.2 NEUTROP # (test code=NE#) 0.0 10\S\3/uL 1.6-8.0 LYMPH # (test code=LY#) 1.6 10\S\3/uL 1.1-3.5 MID # (test code=GMID#) 0.6 10\S\3/uL 0.0-1.1 GRA % (test code=GRA%) 62.4 % 35.0-73.0 LYMPH % (test code=GLY%) 27.8 % 20.0-55.0 MID % (test code=GMID%) 9.8 % 0.0-10.0 XR CHEST 1 VIEW *OW*2018-05-10 13:11:28EXAM: XR CHEST 1 VIEW *OW*.LOCATION: D4.HISTORY: [id number]: Chest pain.COMPARISON: None.TECHNIQUE: Single AP view of the chest was obtained. FINDINGS:The heart is normal in size. The lungs are clear. Noacute osseous abnormalityis identified.IMPRESSION:No acute cardiopulmonary abnormality.
--- OUTSIDE RECORDS SUMMARY | 2019-10-18 18:14 | XMS REPORT | Encounter Summary ---
:2000 Author Care Team Providers Name Role Phone Alfa Blackburn [employer] Integration Developer [phone] Reason for Visit Problem Visit Instructions 1. Urine test positive urinalysis, dipstick test, urine beta-HCG, quantitative, serum or plasma Discussion Note: None recorded.Patient educational handouts: No information available. Plan of Care Reminders Provider Appointments Well Woman Charis Angela Exam 04/22/2019 SELMA Rojas 8:30AM Lab Urinalysis, In-House Results Dipstick 12/24/2018 In-House Results Test, Urine 12/24/2018 beta-HCG, [place] Quantitative, Serum or 12/24/2018 [facility] (Lab) Referral None recorded. Procedures None recorded. Surgeries None recorded. Imaging None recorded. Medications Name Start Date Sprintec (28) 0.25 mg-35 mcg tablet Take 1 tablet every day by oral route. Medications Administered None recorded. Vitals Height Weight BMI Blood Pressure 5 ft 2 in 129.7 lbs 23.7 kg/m2 133/73 mm[Hg] Lab Results Date Name Specimen Result Interpretation Description Value Range Status Address 12/24/2018 beta-HCG, Normal HCG <0.1 0-5 Final [place] Quantitative, Quantitative mIU/mL mIU/mL [facility] (Lab): [address] [facility] 12/24/2018 Urinalysis, Urine Leukocytes Negative In-House Dipstick clean Results: catch For Internal Use Only Urine Nitrite negative In-House clean Results: catch For Internal Use Only Urine Urobilinogen .2 In-House clean Results: catch For Internal Use Only Urine Protein Trace In-House clean Results: catch For Internal Use Only Urine Ph 6.0 In-House clean Results: catch For Internal Use Only Urine Blood Negative In-House clean Results: catch For Internal Use Only Urine Specific 1.015 In-House clean [place] Results: catch For Internal Use Only Urine Ketone Negative In-House clean Results: catch For Internal Use Only Urine Bilirubin Negative In-House clean Results: catch For Internal Use Only Urine Glucose Negative In-House clean Results: catch For Internal Use Only Urine Appearance Clear In-House clean Results: catch For Internal Use Only Urine Color Yellow In-House clean Results: catch For Internal Use Only 12/24/2018 Urine negative In-House Test, Urine clean Test Results: catch For Internal Use Only Allergies Code Code System Name Reaction Severity Status Onset NKDA Problems Name Status Onset Date Source Acute Cervicitis Active 06/07/2015 Encounter -induced Hypertension Active 11/13/2015 Encounter Mild Pre-eclampsia Active 12/27/2015 Encounter Hemorrhagic Cyst of Ovary Active 10/21/2018 Oligomenorrhea Active 10/21/2018 Abnormal Uterine Bleeding Active 10/21/2018 Gilbert's Syndrome Active Encounter Meuva-Krobpqdym-Jmbdc Pattern Active Encounter Constipation Active Encounter Mild Hyperemesis-not Delivered Active Encounter Threatened Premature Labor - Not Active Encounter Delivered Acute Cystitis in , Antepartum Active Encounter Iron Deficiency Anemia of Active Encounter Procedures Date Name Performed by 08/16/2014 Heart Surgery Information not available Vaccine List None recorded. Social History Smoking Status Never Smoker Past Encounters 12/24/2018 Urine Test Positive Alfa Blackburn MD: [address] [place] [address], [address], [place] [address], Ph. [phone] History of Present Illness Note: Problem visit. Started OCs three months ago with normal menses, no side effects, no irregular bleeding. LMP 12/16/18. Has not started next pack of OCs yet. She did a home test 11 days ago that was faintly positive. She has no symptoms of . 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 ROS Reported By: Patient Constitutional: Constitutional: no fatigue, no fever, no significant weight gain, no significant weight loss Skin: Skin: no abnormal moles, no rashes Eyes: Eyes: no irritation, no vision changes ENMT: ENMT: no hearing loss, no ear pain, no nose/sinus problems, no sore throat, no snoring, no dry mouth, no mouth ulcers Respiratory: Respiratory: no dyspnea / shortness of breath, no cough, no sputum production, no hemoptysis, no wheezing Cardiovascular: Cardiovascular: no chest pain, no palpitations, no orthopnea Gastrointestinal: Gastrointestinal: no heartburn, no dysphagia, no nausea, no vomiting, no abdominal pain, no bowel movement changes, no diarrhea, no constipation, no rectal bleeding Genitourinary: Genitourinary: no hematuria, no abnormal bleeding, no flank pain, no trouble urinating, no incontinence, no rash, no lesion, no discharge, no vaginal odor, no vaginal itching Endocrine: Menstrual: no menstrual problems, no PMDD symptoms. Menopausal: no menopausal symptoms. Sexual: no sexual problems Musculoskeletal: Musculoskeletal: no muscle aches, no muscle weakness, no arthralgias/joint pain, no back pain Neurological: Neurologic: no headaches, no dizziness, no LOC, no weakness, no numbness, no seizures Psychological: Psych: no depression, no alcoholism, no sleep disturbances Physical Exam None recorded.
--- OUTSIDE RECORDS SUMMARY | 2019-10-18 18:14 | XMS REPORT | Encounter Summary ---
:2000 Author Care Team Providers Name Role Phone Alfa Blackburn Community Assistant [phone] Reason for Visit Problem Visit Instructions 1. Oligomenorrhea urinalysis, dipstick test, urine FSH (follicle-stimulating hormone), serum T4, free, serum TSH, serum or plasma prolactin, serum estrogen, total, serum progesterone, serum beta-HCG, quantitative, serum or plasma 2. Abnormal uterine bleeding CBC w/ auto diff 3. Hemorrhagic cyst of ovary Sprintec (28) 0.25 mg-35 mcg tablet US, transvaginal Discussion Note Counsled on amenorrhea after DMPA, ovarian cyst resolution, need for control with no desire for and control of menstrual cycles. Counseled regarding prevention of STD's. Counseled regarding OC use, adverse and side effects, and proper dosing and timing. Strongly advised timer on phone to take pills in timely manner to avoid . Discussed ACHES symptoms to report. Pt to return for well woman exam 03/2019 or before for any concerns. Will discuss results when arrive. At least 25 min. of face to face time, >50% spent on counseling. Patient educational handouts: No information available. Plan of Care Reminders Provider Appointments Well Woman Exam Charis Miller 04/22/2019 SELMA Rojas 8:30AM Lab Urinalysis, In-House Results Dipstick 10/20/2018 Test, In-House Results Urine 10/20/2018 [facility] [place] (Follicle-stimulating 10/20/2018 [facility] (Lab) T4, Free, Serum [place] 10/20/2018 [facility] (Lab) TSH, Serum or [place] Plasma 10/20/2018 [facility] (Lab) Prolactin, [place] Serum 10/20/2018 [facility] (Lab) Estrogen, [place] Total, Serum 10/20/2018 [facility] (Lab) Progesterone, [place] Serum 10/20/2018 [facility] (Lab) beta-HCG, [place] Quantitative, Serum or 10/20/2018 [facility] (Lab) CBC W/ Auto [place] Diff 10/20/2018 [facility] (Lab) Referral None recorded. Procedures None recorded. Surgeries None recorded. Imaging US, In-House Results Transvaginal 10/20/2018 Medications Name Start Date metoprolol succinate ER 25 mg tablet,extended release 24 hr Sprintec (28) 0.25 mg-35 mcg tablet Take 1 tablet every day by oral route. start on Thursday Tylenol-Codeine #3 300 mg-30 mg tablet 1-2 p.o. q 6 hours PRN pain Medications Administered None recorded. Vitals Height Weight BMI Blood Pressure 5 ft 2 in 126.5 lbs 23.1 kg/m2 120/76 mm[Hg] Lab Results Date Name Specimen Result Interpretation Description Value Range Status Address US, Transvaginal No observation In-House recorded. Results: For Internal Use Only Allergies Code Code System Name Reaction Severity Status Onset NKDA Problems Name Status Onset Date Source Acute Cervicitis Active 06/07/2015 Encounter -induced Hypertension Active 11/13/2015 Encounter Mild Pre-eclampsia Active 12/27/2015 Encounter Hemorrhagic Cyst of Ovary Active 10/21/2018 Oligomenorrhea Active 10/21/2018 Abnormal Uterine Bleeding Active 10/21/2018 Gilbert's Syndrome Active Encounter Rhsdq-Coptavhgx-Borww Pattern Active Encounter Constipation Active Encounter Mild Hyperemesis-not Delivered Active Encounter Threatened Premature Labor - Not Active Encounter Delivered Acute Cystitis in , Antepartum Active Encounter Iron Deficiency Anemia of Active Encounter Procedures Date Name Performed by 08/16/2014 Heart Surgery Information not available 10/20/2018 US, Transvaginal In-House Results For Internal Use Only [address] Vaccine List None recorded. Social History Smoking Status Never Smoker Past Encounters 10/20/2018 Oligomenorrhea; Abnormal Uterine Bleeding; Hemorrhagic Cyst of Ovary Alfa Blackburn MD: [address] [place] [address], [address], [place] [address], Ph. [phone] History of Present Illness Note: 18 y.o. pt arrives today for Problem visit. C/o onset of some bleeding that started yesterday. She has recent history of left ovarian cyst found after seeking ER visit in [facility] for left abdominal pain. Pt reports no periods for 1 year. She has not had menstrual cycles. She is not taking any control, last DMPA injection 02/20/17. No further cramping. Review of Systems [employer] ROS Reported By: Patient Constitutional: Constitutional: no [...] rectal bleeding Genitourinary: Genitourinary: no hematuria, no flank pain, no trouble urinating, no incontinence, no rash, no lesion, no discharge, no vaginal odor, no vaginal itching, abnormal bleeding Endocrine: Menstrual: no PMDD symptoms. Menopausal: no menopausal symptoms. Sexual: no sexual problems Musculoskeletal: Musculoskeletal: no muscle aches, no muscle weakness, no arthralgias/joint pain, no back pain Neurological: Neurologic: no headaches, no dizziness, no LOC, no weakness, no numbness, no seizures Psychological: Psych: no depression, no alcoholism, no sleep disturbances Physical Exam Pelvic Reported By: Patient Female Genitalia: Vulva: no masses, no atrophy, no lesions. Bladder/Urethra: normal meatus, no urethral discharge, no urethral mass, bladder non distended. Vagina no tenderness, no erythema, no abnormal vaginal discharge, no vesicle(s) or ulcers, no cystocele, no rectocele. Cervix: grossly normal, no discharge, no cervical motion tenderness. Uterus: normal size, normal shape, midline, mobile, non-tender, no uterine prolapse. Adnexa/Parametria: no parametrial tenderness, no parametrial mass, no adnexal tenderness, no ovarian mass
--- OUTSIDE RECORDS SUMMARY | 2019-10-18 18:14 | XMS REPORT | Summary of Care ---
:2000 Author Organization [facility] [place] [address] Care Team Providers Name Role Phone Unavailable Primary Care Provider Unavailable Reason for Visit Reason Comments Palpitations Pt is here due to high heart rate, with chest discomfort and difficulty breathing Consult, Test & Treat (Routine) Status Reason Specialty Diagnoses / Referred By Referred To Procedures Contact Contact Authorization Not Consult, Cardiology Diagnoses WPW (Znrgg-Vczugzbtl-Taaty syndrome) Consult, Test, and Treat WPW (Xxobj-Djwdalzjx-Kaijj syndrome) Consult, Test, and Treat WPW (Iohcr-Wxqsxooky-Uzroy syndrome) Libby Damon Cardiology Needed Test, and Procedures IN OFFICE OUTPATIENT NEW 30 MINUTES MD Guillermina [address], Treat [address] [place], [place] [address] [id number] [place], [place] Phone: [phone] Phone: Encounter Details Date Type Department Care Team Description 03/21/2019 Office Visit [facility] Scanlon Shanon, Palpitations (Pt is Medicine Cardiology Elva Drake MD here due to high heart [address], [address] rate, with chest [address] [place] [address] difficulty breathing ) [phone] Allergies No Known Allergiesdocumented as of this encounter (statuses as of 03/21/2019) Medications No known medicationsdocumented as of this encounter (statuses as of 03/21/2019) Active Problems Not on filedocumented as of this encounter (statuses as of 03/21/2019) Social History Tobacco Use Types Packs/Day Years Used Date Never Smoker Smokeless Tobacco: Never Used Alcohol Use Drinks/Week oz/Week Comments Never Alcohol Habits Answer Date Recorded How often do you have a drink containing alcohol? Never 02/28/2019 How many drinks containing alcohol do you have on a typical Not asked day when you are drinking? How often do you have six or more drinks on one occasion? Not asked Sex Assigned at Date Recorded Not on file Job Start Date Occupation Industry Not on file Not on file Not on file Travel History Travel Start Travel End No recent travel history available. documented as of this encounter Last Filed Vital Signs Vital Sign Reading Time Taken Comments Blood Pressure 110/68 03/21/2019 1:53 PM CDT Pulse 62 03/21/2019 1:53 PM CDT Temperature - - Respiratory Rate 18 03/21/2019 1:53 PM CDT Oxygen Saturation 99% 03/21/2019 1:53 PM CDT Inhaled Oxygen Concentration - - Weight 55.4 kg (122 lb 3.2 oz) 03/21/2019 1:53 PM CDT Height 154.9 cm (5' 1") 03/21/2019 1:53 PM CDT Body Mass Index 23.09 03/21/2019 1:53 PM CDT documented in this encounter Progress Notes Elva Carrera MD - 03/21/2019 2:[address] PM [address] agree with Dr. Sol assessment and plan. Plans for EPS and poss RFA of WPW under MAC anesthesia I spent 45 min with patient of which >50% of the time is spent explainig the nature of all possible arrhythmias she can have and the need of taking her to the EP lab to sort it out as well as possibly ablating it. All risks and benefits discussed as well. I discussed the possibility of hematoma, heart perforation, need for ppm. She agrees with reasoning and wishes to proceed. Elva Scanlon MD Cardiac Electrophysiologist Antoni sousa MD - 03/21/2019 2:00 PM CDT Chief Complaint Patient presents with Palpitations Pt is here due to high heart rate, with chest discomfort and difficulty breathing History of Present Illness: Lindsay is a 17 y.o. female with the above diagnosis who comes in for a follow- up evaluation to [facility] cardiology clinic. She was followed initially by Dr Zhang but transitioned to Dr Ellis for EP studyand ablation of Michelle-Parkinson- White. She has normal cardiac anatomy on echo from June 2014. She had dizziness, weakness, sweating, dyspnea, and palpitations at school. HR was 100s- 110s with school nurse but [address] [facility] emergency room and chemical termination of SVT with metoprolol medical management. Treadmill showed loss of pre-excitation 2013. 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 a low risk septal pathway that had no inducible SVT. There was loss of pre-excitation during the case (unable to map) from mechanical suppression. Ablation was performed and no VA-conduction could be induced after the ablation.She was last seen by Dr. Andrade in February 2016 and had delivered a healthy baby. Now her palpitations have worsened to 2-3x/week lasting up to 15 minutes. They can happen anywhere such as just standing up. They cause chest discomfort, dyspnea, dizziness, but no syncope. Currently she describes abrupt start but rarely spontaneously terminates. She has mild snoring and occasional daytime fatigue. No neuro signs or symptoms. Review of Systems A 14-point review of systems was performed. All are unremarkable (negative) except as noted in the history of present illness section of this note. 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 Family History Problem Relation Name Age of Onset Diabetes Father Hypertension Father Heart Problems Maternal Grandfather Diabetes Paternal Grandfather Hypertension Paternal Grandfather Social History Socioeconomic History Marital status: Single Spouse name: Not on file Number of children: Not on file Years of education: Not on file Highest education level: Not on file Occupational History Not on file Social Needs Financial resource strain: Not on file Food insecurity: Worry: Not on file Inability: Not on file Transportation needs: Medical: Not on file Non-medical: Not on file Tobacco Use Smoking status: Never Smoker Smokeless tobacco: Never Used Substance and Sexual Activity Alcohol use: Never Frequency: Never Drug use: Not on file Sexual activity: Not on file Lifestyle Physical activity: Days per week: Not on file Minutes per session: Not on file Stress: Not on file Relationships Social connections: Talks on phone: Not on file Gets together: Not on file Attends uatsdin service: Not on file Active member of club or organization: Not on file Attends meetings of clubs or organizations: Not on file Relationship status: Not on file Intimate partner violence: Fear of current or ex partner: Not on file Emotionally abused: Not on file Physically abused: Not on file Forced sexual activity: Not on file Other Topics Concerns: Not on file Social History Narrative Not on file I have reviewed the PMH, SH, FHX, ROS, MEDS, ALLERGIES and updated the computerized patient record appropriately. Physical Exam BP 110/68 (BP Location: left arm, Patient Position: Sitting, Cuff Size: regular ) | Pulse 62 | Resp18 | Ht 5' 1" (1.549 m) | Wt 122 lb 3.2 oz (55.4 kg) | SpO2 99% | BMI 23.09 kg/m General Appearance: Alert, cooperative, no distress, appears stated age Head: Normocephalic, without obvious abnormality, atraumatic Eyes: PERRL, conjunctiva/corneas clear, EOM's intact Oral: Lips, mucosa, and tongue normal; teeth and gums normal Neck: Supple, symmetrical, trachea midline, no adenopathy; thyroid: No enlargement/tenderness/nodules; carotid bruit absent JVD: Appears normal Back: Symmetric, no curvature Lungs: Clear to auscultation bilaterally, respirations unlabored Chest wall: No tenderness or deformity Heart: S1 and S2 normal, no murmur, click, gallop or rub Abdomen: Soft, non-tender, bowel sounds active all four quadrants, no masses, no organomegaly Extremities: Extremities normal, atraumatic, no cyanosis or edema Skin: Skin color, texture, turgor normal, no rashes or lesions Neurologic: CNII-XII intact. Normal strength, motor exam grossly intact; normal gait Other test results reviewed: ECG/Holter: pre-excited, septal pathway, WPW pattern Echo: normal 2013 Laboratory results: reviewed Assessment and Plan: //palpitations -plan for EPS -pathway may be close to AVN or septum, so plan to have cryo available. -discussed at length risks of procedure including tamponade, femoral vein access complications, procedure failure, and risk for pacemaker -patient would like to proceed with EPS Seen and discussed with Attending Physician Dr. Xavier Park MD [employer] Satellite Instruction Facilitator PGY8 Elva Scanlon MD Cardiac Laser Engineer documented in this encounter Plan of Treatment Date Type Specialty Care Team Description 04/13/2019 Office Visit Neurology Jose Trejo MD [facility] [address] [address] Name Type Priority Associated Diagnoses Date/Time ELECTROCARDIOGRAM COMPLETE ECG Routine Palpitations 03/21/2019 Fatigue, unspecified type Feeling of chest tightness Health Maintenance Due Date Last Done Comments TETANUS SHOT (ADULT) 2013 HIV SCREENING 2016 FLU VACCINE > 6 MONTHS 02/24/2019 documented as of this encounter Procedures Procedure Name Priority Date/Time Associated Diagnosis Comments ELECTROCARDIOGRAM COMPLETE Routine 03/21/2019 Palpitations Fatigue, unspecified type Feeling of chest tightness documented in this encounter Results Not on filedocumented in this encounter Visit Diagnoses Diagnosis Palpitations - Primary Fatigue, unspecified type Feeling of chest tightness Other chest pain documented in this encounter
--- OUTSIDE RECORDS SUMMARY | 2019-10-18 18:14 | XMS REPORT | Summary of Care ---
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 Libby Damon, Radiology Procedures MRI PELVIS W WO CONTRAST MD Guillermina [address] 1[address] [place] [address] Consult, Test & Treat (Routine) Status Reason Specialty Diagnoses / Referred By Referred To Procedures Contact Contact Pending Consult, Physical Diagnoses Injury of right femoral nerve, sequela Libby Damon Pmr Test, and Medicine and Procedures HI OFFICE OUTPATIENT NEW 45 MINUTES MD Guillermina [address] [place] [facility] [address] [facility] 10th Floor, [address] [place] [phone] Phone: Fax: Consult, Test & Treat (Routine) Status Reason Specialty Diagnoses / Referred By Referred To Procedures Contact Contact Pending Consult, Pain Management / Diagnoses Injury of right femoral nerve, sequela Libby Damon, Test, and Neurology Procedures HI OFFICE OUTPATIENT NEW 30 MINUTES MD Guillermina [address] Judge MD [address] [facility] [address] [place], [place] [address] [place] [address] Phone: [phone] Phone: [phone] Consult, Test & Treat (Routine) Status Reason Specialty Diagnoses / Referred By Referred To Procedures Contact Contact Pending Consult, Transitional Diagnoses WPW (Aqymc-Poahzpfed-Tcbbb syndrome) Libby Damon Transition Test, and Medicine / General Procedures HI OFFICE OUTPATIENT NEW 45 MINUTES MD Guillermina Medicine Treat Internal Medicine [address] [place] [address] [facility]. [address] 8[address] Floor; [address] [address] [place], [place] Phone: [phone] Phone: Consult, Test & Treat (Routine) Status Reason Specialty Diagnoses / Referred By Referred To Procedures Contact Contact Pending Consult, Test, Cardiology Diagnoses WPW (Arzry-Pvgindjgs-Mjlkd syndrome) Libby Damon Cardiology and Treat Procedures HI OFFICE OUTPATIENT NEW 30 MINUTES MD Guillermina [address] [facility], [address] [facility] [address] [place] [phone] Phone: Reason for Visit Reason Comments Other New Pt. Visit - nerve block on upper right thigh Encounter Details Date Type Department Care Team Description 02/28/2019 Office Visit [facility] Libby Damon (New Pt. Visit Medicine - Neurology MD Guillermina - nerve block on Associates [address] [facility] upper right thigh) [address] [facility]. [address], [address] [place] [id number] [place], [place] [phone] [address] [phone] Allergies No Known Allergiesdocumented as of this encounter (statuses as of 02/28/2019) Medications No known medicationsdocumented as of this encounter (statuses as of 02/28/2019) Active Problems Not on filedocumented as of this encounter (statuses as of 02/28/2019) Social History Tobacco Use Types Packs/Day Years [...] Sign Reading Time Taken Comments Blood Pressure 109/69 02/28/2019 9:53 AM CDT Pulse 94 02/28/2019 9:53 AM CDT Temperature - - Respiratory Rate - - Oxygen Saturation - - Inhaled Oxygen Concentration - - Weight 56.7 kg (125 lb) 02/28/2019 9:53 AM CDT Height 154.9 cm (5' 1") 02/28/2019 9:53 AM CDT Body Mass Index 23.62 02/28/2019 9:53 AM CDT documented in this encounter Patient Instructions Patient InstructionsWiLibby dai MD - 02/28/2019 10:30 AM CDTTransitional Clinic [phone] Cardiology [phone] Pain Clinic for femoral nerve block documented in this encounter Progress Notes Libby Damon MD - 02/28/2019 10:30 AM CDT CC: Chief Complaint Patient presents with Other New Pt. Visit - nerve block on upper right thigh Referred by: Referral, Self Accompanied by: Mother HPI: 18 y.o.female with WPW/SVT s/p ablation presenting for evaluation of RLE pain. She reports onset in 2014 after a cardiac cath/ablation surgery. She reports that immediately after the procedure her legs were sore and she was unable to bend her legs. However, 1-2 week later numbness and tingling were noted. Mostly involves the R upper thigh but there is some involvement in the lower leg. The involvement is mostly anterior and lateral. She also endorses leg cramps. The RLE feels weak causing her to limp. Hip flexion leads to sharp pain and cramping. The pain is described as "little needles". Walking also exacerbates symptoms as does uncrossing her legs as she feels "nerves twisting". She endorses R groin discomfort. She believes the neuropathy affected her labor ("I went to 8cm to a 6cm"- dilated). No UE involvement. Thus far she has had one femoral nerve block in 2014 which was helpful for several months. She also participated in PT for 2-3 mos 2-3 times per week. Previously seen by Dr. Cabral at [facility] 10/2014. There is a sharp pain in the posterior neck on R, radiates up to the posterior ear on R. Touching itcauses blurry vision. 1-2 every few months. No neck pain outside of episodes. No n/v. She is still experiencing palpitations and chest discomfort. [facility] seen [facility]. Holter monitoring performed at that time but results are not available. Per CareEverywhere, another ablation was planned but never performed. 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 ROS: General: no fevers or chills, no heat or cold intolerance, no subjective weight loss, no fatigue HEENT: no changes in vision, no sore throat, no changes in hearing, no tinnitus , no nasal drainage CV: + chest pain, + palpitations, no lightheadedness, no PND, no orthopnea, no LE swelling, no claudication Pulm: + shortness of breath, no cough, no hemoptysis GI: no nausea, no vomiting, no abdominal pain, no constipation, no diarrhea, no melena, no hematochezia, no dysphagia, no heartburn Skin: no rash Neuro: see HPI Musculoskeletal: no neck pain, no back pain Heme: no easy bruising, no bleeding from the gums Endo: No polyuria or polydypsia Psych: no depression or anxiety Meds/All: No current outpatient medications on file prior to visit. No current facility-administered medications on file prior to visit. Patient has no known allergies. FH: Family History Problem Relation Name Age of Onset Diabetes Father Hypertension Father Heart Problems Maternal Grandfather Diabetes Paternal Grandfather Hypertension Paternal Grandfather SH: Marital status: Single Number of children: 1 Smoking status: Never Smoker Smokeless tobacco: Never Used Alcohol use: Never Frequency: Never Drug use: MJ Exam: Vitals: 02/28/19 0953 BP: 109/69 BP Location: left arm Patient Position: Sitting Cuff Size: regular Pulse: 94 Weight: 125 lb (56.7 kg) Height: 5' 1" (1.549 m) Body mass index is 23.62 kg/m. Gen: awake, alert, NAD HEENT: no TTP along neck CV: RRR, nl s1/s2 Resp: CTAB, no w/r/r Neuro: - HIF: Language/speech fluent and appropriate. Oriented to person/place/time. Follows all commands. - CN: Pupils 5->3mm bilat to light with no APD; EOMI; V1-3 intact, no facial asymmetry, hearing intact to finger rub bilaterally, palate/tongue midline. Traps/SCM intact. - M: Nml bulk/tone. No pronator drift. - LUE: shoulder abduction 5/5, elbow flexion 5/5, elbow extension 5/5, wrist flexion 5/5, wrist extension 5/5, arts and humanities council director strength 5/5 - RUE: shoulder abduction 5/5, elbow flexion 5/5, elbow extension 5/5, wrist flexion 5/5, wrist extension 5/5, arts and humanities council director strength 5/5 - LLE: hip flexion 5/5 , knee flexion 5/5, knee extension 5/5, ankle flexion 5/5 , ankle extension 5/5 - RLE: hip flexion 5/5 , knee flexion 5/5, knee extension 5/5, ankle flexion 5/5 , ankle extension 5/5 - S: diminished to pin, temp, LT R upper leg medial>lateral and anteriorly, diminished to temp lower medial leg. Vibration intact throughout. - R: Triceps, biceps, brachioradialis 3+ BL. Patellars 3+, Achilles 2+ BL. No clonus. Plantar flexion bilat. Neg Avila - C/G: Narrow based gait, intact to tandem; intact FNF, HKS, SAMANTHA, Romberg neg Labs/Imaging: EKG: Sinus bradycardia; Tkxge-Hbskwjtbs-Nmzzz A/P: 18 y.o.w with WPW/SVT s/p ablation presenting for evaluation of RLE pain with known history of femoral neuropathy. Pt still endorsing groin pain without prior imaging obtained. - Pain clinic referral for nerve block - MR Lumbosacral plexus to rule out compressive lesion - Cards (EP) + Transitional Medicine referral - CBC, CMP given history of elevated LFTs and anemia Patient verbalized understanding of these issues, agrees with the plan and all questions were answered today. Patient was given an opportunity to voice any other symptoms or concerns not listed above. Patient did not have any other symptoms or concerns. Patient told to return in 3 months. Patient instructed to stop at [facility] director to schedule appointmentbefore leaving today. I personally spent a total of 60 minutes with the patient with 45 minutes spent in counseling and coordination of care. A discussion regarding diagnosis and treatment options was held. Libby Damon MD documented in this encounter Plan of Treatment Name Type Priority Associated Diagnoses Order Schedule COMPREHENSIVE METABOLIC Lab Routine Transaminitis Ordered: 02/28/2019 PANEL CBC W/AUTO DIFF WITH Lab Routine Anemia, unspecified Ordered: 02/28/2019 PLATELETS type MRI PELVIS W WO CONTRAST Imaging Routine Injury of right femoral 1 Occurrences nerve, sequela starting 02/28/2019 Femoral neuropathy of until 09/29/2019 right lower extremity Name Type Priority Associated Order Schedule Diagnoses AMB REF TO CARD Outpatient Routine WPW Ordered: ELECTROPHYSIOLOGY [facility] Referral ([id number]-Ggzysbodo-Y 02/28/2019 ruperto syndrome) AMB REF TO TRANSITION Outpatient Routine WPW Ordered: MEDICINE ANJANA Referral (Xunlw-Momsdejyb-L 02/28/2019 ruperto syndrome) AMB REF TO PAIN Outpatient Routine Injury of right Ordered: MANAGEMENT ANJANA Referral femoral nerve, 02/28/2019 sequela AMB REF TO PHYSICAL MED Outpatient Routine Injury of right Ordered: REHAB ANJANA Referral femoral nerve, 02/28/2019 sequela Health Maintenance Due Date Last Done Comments TETANUS SHOT (ADULT) 2013 HIV SCREENING 2016 FLU VACCINE > 6 MONTHS 02/24/2019 documented as of this encounter Results Not on filedocumented in this encounter Visit Diagnoses Diagnosis Femoral neuropathy of right lower extremity - Primary Injury of right femoral nerve, sequela WPW (Wtsia-Bwyftpnwh-Lthmg syndrome) Anomalous atrioventricular excitation Anemia, unspecified type Transaminitis Nonspecific elevation of levels of transaminase or lactic acid dehydrogenase ( LDH) documented in this encounter Insurance Payer Benefit Plan / Subscriber ID Effective Dates Phone Address Type Group [facility] xxxxxxxxx 2018-Present [address] Medicaid [facility] [place] [place] HE[employer] HEALTH PLAN [id number] documented as of this encounter
[2019-10-18 19:17] LABS: Absolute Lymphocytes (CBC) 0.3 K/uL (0.7-4.9); Basophils % 0.4 % (0-1.3); Hematocrit 43.2 % (36.0-45.0); Lymphocytes % 3.1 % (15.3-44.8); MPV 9.5 fL (7.6-11.3); RBC Red Blood Cell Count 4.65 M/uL (3.86-4.86)
[2019-10-18 19:32] LABS: ALT/SGPT 22 U/L (12-78); AST/SGOT 18 U/L (15-37); Albumin 4.4 g/dL (3.4-5.0); Alkaline Phosphatase 74 U/L (45-117); BUN Blood Urea Nitrogen 14 mg/dL (7-18); Bicarbonate 24 mmol/L (21-32); Bilirubin Direct 0.4 mg/dL (0-0.2); Bilirubin Total 2.5 mg/dL (0.2-1.0); Glucose Level 83 mg/dL (74-106); Lipase 83 U/L (73-393); Potassium 3.5 mmol/L (3.5-5.1); Protein, Total 8.8 g/dL (6.4-8.2); Sodium Level 139 mmol/L (136-145)
[2019-10-18 19:33] LABS: HCG, Quantitative < 1 mIU/mL (1-3)
[2019-10-18] MEDS ORDERED: PROMETHAZINE INJ 25 MG/ML AMP ONE (19:35)
[2019-10-18 20:05] LABS: Blood Morphology Comment NOT SEEN (NOT SEEN); Platelet Estimate ADEQ; White Blood Cell Scan OK
--- NOTE | 2019-10-18 20:37 | RAD REPORT ---
EXAM DESCRIPTION: CT - Abdomen Pelvis W Contrast - 10/18/2019 8:07 pm CLINICAL HISTORY: Abdominal pain COMPARISON: 2017 TECHNIQUE: Computed axial tomography of the abdomen pelvis was obtained. 100 cc Isovue-300 was admin istered intravenously. Oral contrast was not requested which limits evaluation of bowel. All CT scans are performed using dose optimization technique as appropriate and may include automated exposure control or mA/KV adjustment according to patient size. FINDINGS: The liver, spleen, pancreas, adrenal and kidneys appear unremarkable. There is no evidence of diverticulitis. Normal appendix 3.5 centimeter left ovarian cyst with a small amount of free fluid IMPRESSION: 3.5 centimeter left ovarian cyst with a small amount of free fluid .
[2019-10-18 20:43] LABS: Urine Blood NEGATIVE (NEG); Urine Glucose NEGATIVE (NEG); Urine Protein 1+ (NEG); Urine pH >8.5 (5.0-7.0)
[2019-10-18] MEDS ORDERED: ONDANSETRON 4 MG/2 ML VIAL ONE (20:51)
--- NOTE | 2019-10-18 20:51 | ER ---
Nurse's Notes [facility] Name: Lindsay Santiago Age: 19 yrs Sex: Female : 2000 Arrival Date: 10/18/2019 Time: 18:12 Bed 15 Private MD: Diagnosis: Other ovarian cysts Presentation: 10/17 18:13 Chief complaint: Vomiting and upper abdominal pain x 2 hrs. Reports + home preg test 2 hb weeks ago. LMP 08/27/19. Coronavirus screen: Patient denies fever greater than 100.4F, cough, shortness of breath, or difficulty breathing. Proceed with normal triage process. Ebola Screen: No symptoms or risks identified at this time. Initial Sepsis Screen: Does the patient meet any 2 criteria? No. Patient's initial sepsis screen is negative. Does the patient have a suspected source of infection? No. Patient's initial sepsis screen is negative. Risk Assessment: Do you want to hurt yourself or someone else? Patient reports no desire to harm self or others. 18:13 Method Of Arrival: Ambulatory hb 18:13 Acuity: TAMIKA 3 hb 21:22 Onset of symptoms was October 18, 2019. 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 - Social history:: Smoking status: Patient denies any tobacco usage or history of. - Family history:: not pertinent. - Hospitalizations: : No recent hospitalization is reported. Screenin:50 Abuse screen: Denies threats or abuse. Nutritional screening: No deficits noted. ll1 Tuberculosis screening: No symptoms or risk factors identified. Fall Risk IV access (20 points). Ambulatory Aid- None/Bed Rest/Nurse Assist (0 pts). Total Doherty Fall Scale indicates No Risk (0-24 pts). Assessment: 18:48 General: Appears in no apparent distress. Behavior is calm, cooperative. Pain: Denies ll1 pain. Neuro: No deficits noted. Cardiovascular: No deficits noted. Respiratory: No deficits noted. GI: Abdomen is flat, Bowel sounds present X 4 quads. Abd is soft and non tender Abd is soft Reports intolerance of fluids, intolerance of food, nausea, vomiting, Thinks she might be . : No deficits noted. 19:45 Reassessment: No changes from previously documented assessment. Patient and/or family ll1 updated on plan of care and expected duration. Pain level reassessed. Patient is alert, oriented x 3, equal unlabored respirations, skin warm/dry/pink. 20:45 Reassessment: No changes from previously documented assessment. Patient and/or family ll1 updated on plan of care and expected duration. Pain level reassessed. Patient is alert, oriented x 3, equal unlabored respirations, skin warm/dry/pink. Vital Signs: 18:13 BP 119 / 76; Pulse 84; Resp 16; Temp 98.1; Pulse Ox 100% on R/A; Weight 58.06 kg; hb Height 5 ft. 1 in. (154.94 cm); Pain 7/10; 19:45 BP 115 / 60; Pulse 95; Resp 17; ll1 21:20 BP 125 / 75; Pulse 90; Resp 16; Pulse Ox 100% ; Pain 0/10; ll1 18:13 Body Mass Index 24.19 (58.06 kg, 154.94 cm) hb ED Course: 18:12 Patient arrived in ED. ag5 18:13 Kellie Zapata FNP-C is PHCP. kb 18:13 Gerard Ruby MD is Attending Physician. kb 18:16 Triage completed. hb 18:16 Arm band placed on. hb 18:17 Deana Leong, RN is Primary Nurse. ll1 18:48 Missed attempt(s): 22 gauge in right antecubital area. Bleeding controlled, band aid ll1 applied, catheter tip intact. 18:51 Patient has correct armband on for positive identification. Bed in low position. Call ll1 light in reach. Side rails up X 1. 18:54 Initial lab(s) drawn, by me, sent to lab. Inserted saline lock: 22 gauge in left kj1 antecubital area, using aseptic technique. Blood collected. 19:02 Kellie Zapata FNP-C is PHCP. kb 20:08 CT Abd/Pelvis - IV Contrast Only In Process Unspecified. EDMS 21:22 No provider procedures requiring assistance completed. IV discontinued, intact, ll1 bleeding controlled, No redness/swelling at site. Pressure dressing applied. Administered Medications: 19:41 Drug: Phenergan 6.25 mg {Note: RASS 0.} Route: IVP; Site: left antecubital; 1 21:06 Follow up: Response: No adverse reaction; RASS: Drowsy (-1) 1 20:56 Drug: Zofran (Ondansetron) 4 mg Route: IVP; Site: left antecubital; ll1 21:06 Follow up: Response: No adverse reaction; RASS: Drowsy (-1) 1 Outcome: 20:51 Discharge ordered by . dedra 21:23 Discharged to home ambulatory. 1 21:23 Condition: stable 21:23 Discharge instructions given to patient, Instructed on discharge instructions, follow up and referral plans. medication usage, Demonstrated understanding of instructions, follow-up care, medications, Prescriptions given X 2. 21:25 Patient left the ED. 1 Signatures: Dispatcher [employer] EDMS Kellie Zapata, RISK MANAGEMENT ANALYST-C RISK MANAGEMENT ANALYST-Ckb Gerard Ruby MD MD rn Baxter, Heather, RN RN hb Gaskin, Ajare 5 Zoila Zapata kj1 Deana Leong, BLAKE RN [facility]
--- NOTE | 2019-10-18 20:51 | EDPHYS ---
Physician Documentation [facility] Name: Lindsay Snatiago Age: 19 yrs Sex: Female : 2000 Arrival Date: 10/18/2019 Time: 18:12 Bed 15 Private MD: ED Physician Gerard Ruby HPI: 10/17 18:34 This 19 yrs old Female presents to ER via Ambulatory with complaints of rn Nausea/Vomiting, Possible Preg. 18:34 The patient presents to the emergency department with nausea, vomiting, abdominal pain, rn of the left upper quadrant. Onset: The symptoms/episode began/occurred today. Possible causes: unknown, . The symptoms are aggravated by nothing. The symptoms are alleviated by nothing. Severity of symptoms: At their worst the symptoms were moderate in the emergency department the symptoms are unchanged. The patient has not experienced similar symptoms in the past. 18:35 Reports began this afternoon with vomiting, about 7 times, assoc with intermittent LUQ rn abd pain, cramping, took 2 tests at home and were faintly positive so not sure if . Reports last period feb1 and normally pretty regular. NO fever or diarrhea. . 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 - Social history:: Smoking status: Patient denies any tobacco usage or history of. - Family history:: not pertinent. - Hospitalizations: : No recent hospitalization is reported. ROS: 18:35 Constitutional: Negative for fever, chills, and weight loss, Eyes: Negative for injury, rn pain, redness, and discharge, Cardiovascular: Negative for chest pain, palpitations, and edema, Respiratory: Negative for shortness of breath, cough, wheezing, and pleuritic chest pain, Abdomen/GI: Negative for diarrhea, and constipation, : Negative for injury, bleeding, discharge, and swelling, MS/Extremity: Negative for injury and deformity, Skin: Negative for injury, rash, and discoloration, Neuro: Negative for headache, weakness, numbness, tingling, and seizure. Exam: 18:35 Constitutional: This is a well developed, well nourished patient who is awake, alert, rn and in no acute distress. Head/Face: Normocephalic, atraumatic. ENT: MMM Cardiovascular: Regular rate and rhythm. No pulse deficits. Respiratory: No increased work of breathing, no retractions or nasal flaring. Abdomen/GI: soft, mild LUQ tenderness, no rebound MS/ Extremity: Pulses equal, no cyanosis. Neurovascular intact. Full, normal range of motion. Equal circumference. Neuro: Awake and alert, GCS 15 Vital Signs: 18:13 BP 119 / 76; Pulse 84; Resp 16; Temp 98.1; Pulse Ox 100% on R/A; Weight 58.06 kg; hb Height 5 ft. 1 in. (154.94 cm); Pain 7/10; 19:45 BP 115 / 60; Pulse 95; Resp 17; ll1 21:20 BP 125 / 75; Pulse 90; Resp 16; Pulse Ox 100% ; Pain 0/10; ll1 18:13 Body Mass Index 24.19 (58.06 kg, 154.94 cm) hb MDM: 18:18 Patient medically screened. rn 20:50 Data reviewed: vital signs, nurses notes. Data interpreted: Pulse oximetry: on room air kb is 100 %. Interpretation: normal. Counseling: I had a detailed discussion with the patient and/or guardian regarding: the historical points, exam findings, and any diagnostic results supporting the discharge/admit diagnosis, lab results, radiology results, the need for outpatient follow up, a family practitioner, an OB/Gyne specialist, to return to the emergency department if symptoms worsen or persist or if there are any questions or concerns that arise at home. 10/17 18:32 Order name: Basic Metabolic Panel rn 10/17 18:32 Order name: CBC with Diff rn 10/17 18:32 Order name: Hepatic Function rn 10/17 18:32 Order name: Lipase rn 10/17 18:33 Order name: Quantitative Hcg; Complete Time: 19:35 rn 10/17 18:34 Order name: Basic Metabolic Panel; Complete Time: 19:35 EDCT 10/17 18:34 Order name: CBC with Automated Diff EDCT 10/17 18:34 Order name: Liver (Hepatic) Function; Complete Time: 19:35 EDMS 10/17 18:34 Order name: Lipase; Complete Time: 19:35 EDCT 10/17 18:45 Order name: Urine Dipstick--Ancillary (enter results); Complete Time: 20:44 bd 10/17 18:45 Order name: Urine --Ancillary (enter results); Complete Time: 20:44 bd 10/17 19:36 Order name: CT Abd/Pelvis - IV Contrast Only; Complete Time: 20:50 kb 10/17 20:06 Order name: CBC Smear Scan EDCT 10/17 18:13 Order name: Urine Test (obtain specimen); Complete Time: 18:31 kb 10/17 18:13 Order name: Urine Dipstick-Ancillary (obtain specimen); Complete Time: 18:31 kb 10/17 18:32 Order name: IV Saline Lock; Complete Time: 19:41 rn 10/17 18:32 Order name: Labs collected and sent; Complete Time: 19:41 rn Administered Medications: 19:41 Drug: Phenergan 6.25 mg {Note: RASS 0.} Route: IVP; Site: left antecubital; ll1 21:06 Follow up: Response: No adverse reaction; RASS: Drowsy (-1) ll1 20:56 Drug: Zofran (Ondansetron) 4 mg Route: IVP; Site: left antecubital; ll1 21:06 Follow up: Response: No adverse reaction; RASS: Drowsy (-1) ll1 Disposition: 10/18 10:11 Co-signature as Attending Physician, Gerard Ruby MD. rn Disposition: 10/18/19 20:51 Discharged to Home. Impression: Other ovarian cysts. - Condition is Stable. - Discharge Instructions: Ovarian Cyst, Orne-ju-Adyy. - Prescriptions for Zofran 4 mg Oral Tablet - take 1 tablet by ORAL route every 6 hours As needed; 20 tablet. Diclofenac Sodium 75 mg Oral Tablet, Delayed Release (E.C.) - take 1 tablet by ORAL route 2 times per day As needed; 30 tablet. - Medication Reconciliation Form, Thank You Letter, Antibiotic Education, Prescription Opioid Use form. - Follow up: Emergency Department; When: As needed; Reason: Worsening of condition. Follow up: Private Physician; When: 2 - 3 days; Reason: Recheck today's complaints, Continuance of care, Re-evaluation by your physician. Signatures: Dispatcher [employer] [facility] Kellie Zapata, EXHAUST WORKER-C EXHAUST WORKER-Ckb Gerard Ruby MD MD rn Baxter, Heather RN RN Deana Morales RN RN ll1 Corrections: (The following items were deleted from the chart) 10/17 21:25 20:51 10/18/2019 20:51 Discharged to Home. Impression: Other ovarian cysts. Condition ll1 is Stable. Forms are Medication Reconciliation Form, Thank You Letter, Antibiotic Education, Prescription Opioid Use. Follow up: Emergency Department; When: As needed; Reason: Worsening of condition. Follow up: Private Physician; When: 2 - 3 days; Reason: Recheck today's complaints, Continuance of care, Re-evaluation by your physician. kb
[2019-10-18 21:46] VITALS: TEMP 98.1; O2SAT 100
[2019-10-18 21:49] VITALS: BP 125/75
== END 2019-10-18 21:25 | disposition home or self-care (01) ==
LOC: ER 18:08
DX: N83.299 Other ovarian cyst, unspecified side (principal); R11.2 Nausea with vomiting, unspecified
CPT/HCPCS: 85025; 80048; 36415; 81025; 80076; 84702; 81003; 83690; 74177; Q9967; J2550; J2405; 96374; 96375; 99284

== ENCOUNTER 2019-11-23 21:07 | Emergency (ER) | payer OTHER ==
--- OUTSIDE RECORDS SUMMARY | 2019-11-23 21:11 | XMS REPORT ---
:2000 Author Organization [facility] t Address [address] [place] [address] Care Team Providers Name Role Phone SERRANO Unavailable Unavailable DR Mellisa WEBSTER Unavailable Unavailable FARRUKH, Unavailable Unavailable NIELS, Unavailable Unavailable DR Taylor VALENZUELA. Unavailable Unavailable LOCO, Unavailable Unavailable VANESSA CALDERÓN Unavailable Unavailable RISA, DR Dinh Unavailable Unavailable BA, Unavailable Unavailable KAREN, Unavailable Unavailable POTMAR, DR Tyler Unavailable Unavailable OEKevin, Unavailable Unavailable Problems Condition Condition Condition Status Onset Resolution Last Treatin g Comments Name Details Category Date Date Treatment Clinician Date Hemorrhagic Hemorrhagic Problem Active cyst of Cyst of 3-28 ovary Ovary 00:00: 00 Oligomenorr Oligomenorr Problem Active hea hea 3-28 00:00: 00 Abnormal Abnormal Problem Active uterine Uterine 3-28 bleeding Bleeding 00:00: 00 Mild Mild Problem Active pre-eclamps Pre-eclamps 6-02 ia ia 00:00: 00 -i -i Problem Active nduced nduced 4-19 hypertensio Hypertensio 00:00: n n 00 Acute Acute Problem Active 2014-07 cervicitis Cervicitis -12 00:00: 00 Gilbert's Gilbert's Problem Active syndrome Syndrome Michelle-Parki Michelle-Parki Problem Active nson-White nson-White pattern Pattern Constipatio Constipatio Problem Active n n Mild Mild Problem Active hyperemesis Hyperemesis -not -not delivered Delivered Threatened Threatened Problem Active premature Premature labor - not Labor - Not delivered Delivered Acute Acute Problem Active cystitis in Cystitis in , , antepartum Antepartum Iron Iron Problem Active deficiency Deficiency anemia of Anemia of Allergies, Adverse Reactions, Alerts This patient has no known allergies or adverse reactions. Medications Ordered Filled Start Stop Current Ordering Indication Dosage Frequency Signature Comments Components Medication Medication Date Date Medication? Clinician (SIG) Name Name Rica Strauss No Rica (28) 0.25 (28) 0.25 (28) 0.25 mg-35 mcg mg-35 mcg mg-35 mcg tablet Take tablet Take tablet 1 tablet 1 tablet Take 1 every day every day tablet by oral by oral every day route. route. by oral route. Vital Signs Vital Name Observation Time Observation Value Comments BP Diastolic 2018-12-24 00:00:00 73 mm[Hg] Height 2018-12-24 00:00:00 62 [in_i] BP Systolic 2018-12-24 00:00:00 133 mm[Hg] Body Weight 2018-12-24 00:00:00 129.7 [lb_av] BP Diastolic 2018-10-20 00:00:00 76 mm[Hg] Height 2018-10-20 00:00:00 62 [in_i] BP Systolic 2018-10-20 00:00:00 120 mm[Hg] Body Weight 2018-10-20 00:00:00 126.5 [lb_av] Procedures and Interventions Procedure Date / Time Performed Performing Clinici an US, transvaginal 2018-10-20 00:00:00 Heart Surgery 2014-08-16 00:00:00 Plan of Care Planned Activity Planned Date Comments Encounters Start End Encounter Admission Attending Care Care Encounter Date/Time Date/Time Type Type Clinicians Facility Department ID 2019-10-05 Inpatient C ZACH [facility] [place] RAD [id number] 14:45:00 CHAPINCITO 2019-09-15 2019-09-15 Emergency E ELEANOR [facility] [place] [facility] [id number] 10:06:00 11:30:00 LAURA 2019-09-04 2019-09-04 Emergency E FARRUKH [facility] [place] ECC [id number] 09:01:00 09:55:00 FARZANA XIAO 2019-07-30 2019-07-31 Emergency E NIELS [facility] ECC [id number] 23:29:00 00:40:00 RUSTAM 2019-07-08 2019-07-09 Emergency E FAIZAN VALENZUELA [facility] [place] ECC [id number] 23:31:00 01:46:00 2019-04-22 2019-04-22 Emergency E BERONICA DANTE [facility] [place] ECC [id number] 11:33:00 11:50:00 2019-03-14 2019-03-14 Emergency E RISA [facility] ECC [id number] 10:55:00 13:00:00 YOAV 2019-03-13 2019-03-13 Emergency E ARIANNE SHEARER [facility] [id number] 07:11:00 09:06:00 2019-02-05 2019-02-05 Emergency E RISA [facility] ECC [id number] 07:32:00 09:45:00 YOAV 2018-12-24 2018-12-24 Alfa [facility] [place] - [id number] 00:00:00 00:00:00 MD Bere: [address] [address], Ph. [phone] 2018-12-02 2018-12-02 Emergency E EZIO JONES [facility] [id number] 03:57:00 04:35:00 2018-10-20 2018-10-20 Alfa [place] - [id number] 00:00:00 00:00:00 MD Bere: [address] [address], Ph. [phone] 2018-10-04 2018-10-05 Outpatient E POTROSE MARYALOV, [facility] [id number] 21:48:00 03:05:00 BRIAN 2018-05-10 2018-05-10 Outpatient E DEMETRIA, [facility] [id number] 12:53:00 14:30:00 ALFONSO Results Test Description Test Time Test Comments Text Results Atomic Results Result Comments XR CHEST 1 VIEW PORTABLE 2019-07-31 00:31:52 LOC ATION: H43 EXAM: XR CHEST 1 VIEW PORTABLEHISTORY: [id number]: Dyspnea TECHNIQUE: Frontal view of t he chest.COMPARISON: 03/14/2019FINDINGS:The lungs are well inflated and clear. No evide nce of pneumothorax or pleural effu miles. The heart is normal in size. Th e mediastinal contours are unremarkable. Osseous stru ctures are intact. IMPRESSION:No ev idence of acute cardiopulmonary diseas e. D-DIMER 2019-07-31 00:23:00 Test Item Value Reference Range Comments D-DIMER (test code = DDI) <200 ng/mL D-DU 0-234 D-DIMER COMMENT (test code = DDCOM) *Level to rule out DVT or PE : <235 ng/mL D-DU* COMPREHENSIVE METABOLIC [id number] 00:17:00 Test Item Value Reference Range Comments GLUCOSE (test code = 06D) 91 mg/dL 75-100 SODIUM (test code = 01A) 139 mmol/L 136-145 POTASSIUM (test code = 01B) 3.5 mmol/L 3.6-5.1 CHLORIDE (test code = 04A) 107 mmol/L 98-107 CO2 (test code = 02A) 27 mmol/L 22-32 ANION GAP (test code = ANG) 8.5 mmol/L BUN (test code = 05D) 11 mg/dL 7-18 CREATININE (test code = 03E) 0.8 mg/dL 0.4-1.1 BUN/CREA (test code = BCR) 13 12-20 CALCIUM (test code = 09D) 8.3 mg/dL 8.3-9.5 BILI TOTAL (test code = 11A) 1.1 mg/dL 0.2-1.0 PROTEIN (test code = 07D) 7.5 g/dL 6.4-8.2 ALBUMIN (test code = 08D) 4.1 g/dL 3.5-4.8 GLOBULIN (test code = GLB) 3.4 g/dL 1.5-3.8 ALB/GLOB (test code = AGRR) 1.2 1.0-2.6 ALK PHOS (test code = 35A) 69 IU/L 42-121 AST (test code = 30A) 14 IU/L <=42 ALT (test code = 31A) 23 IU/L <=78 TROPONIN [id number] 00:14:00 Test Item Value Reference Range Comments TROPONIN I (test code = A84) <0.015 ng/mL 0.000-0.045 URINE [id number] 00:03:00 Test Item Value Reference Range Comments PREG UR (test code = PGU) NEGATIVE NEGATIVE CBC (INCLUDES AUTOMATED DIFFERENTIAL)2019-07-30 23:59:00 Test Item Value Reference Range Comments WBC (test code = WBC) 8.4 10\S\3/uL 4.5-11.0 RBC (test code = RBC) 4.31 10\S\6/uL 4.30-5.70 HGB (test code = HBG) 13.6 g/dL 12.0-15.5 HCT (test code = HCT) 39.3 % 35.0-44.0 MCV (test code = MCV) 91.2 fL 81.0-99.0 MCH (test code = MCH) 31.6 pg 27.0-31.0 MCHC (test code = MCHC) 34.6 g/dL 32.0-36.0 RDW (test code = RDW) 12.7 % 11.5-14.5 PLT (test code = PLT) 299 10\S\3/uL 130-400 MPV (test code = MPV) 10.5 fL 9.4-12.4 NEUTROP # (test code = NE#) 4.5 10\S\3/uL 1.6-8.0 LYMPH # (test code = LY#) 2.9 10\S\3/uL 1.1-3.5 MONOCYTE # (test code = MO#) 0.7 10\S\3/uL 0.0-1.1 EOSINOPH # (test code = EO#) 0.2 10\S\3/uL 0.0-0.7 BASOPHIL # (test code = BA#) 0.1 10\S\3/uL 0.0-0.3 IG # (test code = IG#) 0.02 10\S\3/uL 0.00-0.06 NRBC # (test code = NRBC#) 0.00 10\S\3/uL 0.00-0.01 NEUTROPH % (test code = NE%) 53.3 % 35.0-73.0 LYMPH % (test code = LY%) 35.0 % 20.0-55.0 MONO % (test code = MO%) 7.9 % 2.5-10.0 EOSINOPH % (test code = EO%) 2.9 % 0.0-5.0 BASOPHIL % (test code = BA%) 0.7 % 0.0-2.0 IG % (test code = IG%) 0.2 % 0.0-0.8 NRBC% (test code = NRBC%) 0.0 % 0.0-0.2 MANDIFF (test code = MDIFF) NO NO RBC MORPH (test code = RBCMOR) NORMAL CT ABDOMEN AND PELVIS WITH [id number] 00:48:44EXAM: CT abdomen pelvis with contrastLOCATION: [id number]: Lower abdominal painTECHNIQUE: Contrast en hanced CT of the abdomen and pelvis. Coronal [...] Normal. Adrenals: Normal.Genitourinary: The kidneys are normal. No hydronephrosis. Evaluation of thebladder is limited, but no obvious bladder abnormality is present. Gastrointestinal: No bowel obstruction or perienteric inflammation. Theappendix is normal. Vascular: No evidence of aneurysm or dissection. Lymphatics: No enlarged lymph nodes by CT size criteria.Bones/Soft Tissues: No acute osseous findings. No ventral hernias.Peritoneum/Other: No extraluminal air. No extraluminal fluid. IMPRESSION:No acute findings. Normal appendix.AMYLASE AND [id number] 00:09:00 Test Item Value Reference Range Comments AMYLASE (test code = 10A) 62 U/L 28-100 LIPASE (test code = 60A) 128 IU/L 73-393 COMPREHENSIVE METABOLIC [id number] 00:09:00 Test Item Value Reference Range Comments GLUCOSE (test code = 06D) 114 mg/dL 75-100 SODIUM (test code = 01A) 138 mmol/L 136-145 POTASSIUM (test code = 01B) 3.8 mmol/L 3.6-5.1 CHLORIDE (test code = 04A) 105 mmol/L 98-107 CO2 (test code = 02A) 29 mmol/L 22-32 ANION GAP (test code = ANG) 7.8 mmol/L BUN (test code = 05D) 12 mg/dL 7-18 CREATININE (test code = 03E) 0.9 mg/dL 0.4-1.1 BUN/CREA (test code = BCR) 14 12-20 CALCIUM (test code = 09D) 8.8 mg/dL 8.3-9.5 BILI TOTAL (test code = 11A) 1.0 mg/dL 0.2-1.0 PROTEIN (test code = 07D) 8.2 g/dL 6.4-8.2 ALBUMIN (test code = 08D) 4.3 g/dL 3.5-4.8 GLOBULIN (test code = GLB) 3.9 g/dL 1.5-3.8 ALB/GLOB (test code = AGRR) 1.1 1.0-2.6 ALK PHOS (test code = 35A) 79 IU/L 42-121 AST (test code = 30A) 13 IU/L <=42 ALT (test code = 31A) 24 IU/L <=78 URINALYSIS WITH [id number] 00:05:00 Test Item Value Reference Range Comments COLOR (test code = COLU) YELLOW YELLOW CLARITY (test code = CLA) CLEAR CLEAR GLUCOSE UR (test code = UA GLUCOSE) NEGATIVE NEGATIVE BILI UR (test code = BILE) NEGATIVE NEGATIVE KETONES UR (test code = LUIS) NEGATIVE NEGATIVE SP GRAVITY (test code = SPGR) 1.022 1.005-1.030 PH UR (test code = PH) 7.0 4.5-8.0 PROTEIN UR (test code = PU) NEGATIVE NEGATIVE UROBIL UR (test code = UROQ) 1.0 EU/dL 0.2-1.0 NITRITE UR (test code = NITRITE) NEGATIVE NEGATIVE BLOOD UR (test code = UA BLOOD) 2+ NEGATIVE LEUK ES UR (test code = LEUK) 2+ NEGATIVE WBC UR (test code = UWBC) 5 /HPF 0-5 RBC UR (test code = URBC) 6 /HPF 0-2 EPITH UR (test code = UEPC) FEW /LPF FEW BACTERIA UR (test code = UBACT) FEW /HPF NONE CAST UR (test code = CAST) /LPF NONE CRYSTAL UR (test code = CRYU) / LPF NONE MUCUS UR (test code = MUC) / HPF NONE AMORPH UR (test code = MELIDA) / HPF NONE TRICH UR (test code = UTRICH) /HPF NONE YEAST UR (test code = UY) /HPF NONE SPERM UR (test code = USPERM) /HPF NONE SERUM [id number] 00:01:00 Test Item Value Reference Range Comments PREG SRM (test code = PGS) NEGATIVE NEGATIVE CBC (INCLUDES AUTOMATED DIFFERENTIAL)2019-07-08 23:54:00 Test Item Value Reference Range Comments WBC (test code = WBC) 8.4 10\S\3/uL 4.5-11.0 RBC (test code = RBC) 4.48 10\S\6/uL 4.30-5.70 HGB (test code = HBG) 14.1 g/dL 12.0-15.5 HCT (test code = HCT) 41.6 % 35.0-44.0 MCV (test code = MCV) 92.9 fL 81.0-99.0 MCH (test code = MCH) 31.5 pg 27.0-31.0 MCHC (test code = MCHC) 33.9 g/dL 32.0-36.0 RDW (test code = RDW) 12.7 % 11.5-14.5 PLT (test code = PLT) 314 10\S\3/uL 130-400 MPV (test code = MPV) 10.6 fL 9.4-12.4 NEUTROP # (test code = NE#) 4.9 10\S\3/uL 1.6-8.0 LYMPH # (test code = LY#) 2.5 10\S\3/uL 1.1-3.5 MONOCYTE # (test code = MO#) 0.7 10\S\3/uL 0.0-1.1 EOSINOPH # (test code = EO#) 0.3 10\S\3/uL 0.0-0.7 BASOPHIL # (test code = BA#) 0.1 10\S\3/uL 0.0-0.3 IG # (test code = IG#) 0.03 10\S\3/uL 0.00-0.06 NRBC # (test code = NRBC#) 0.00 10\S\3/uL 0.00-0.01 NEUTROPH % (test code = NE%) 57.8 % 35.0-73.0 LYMPH % (test code = LY%) 29.1 % 20.0-55.0 MONO % (test code = MO%) 8.6 % 2.5-10.0 EOSINOPH % (test code = EO%) 3.4 % 0.0-5.0 BASOPHIL % (test code = BA%) 0.7 % 0.0-2.0 IG % (test code = IG%) 0.4 % 0.0-0.8 NRBC% (test code = NRBC%) 0.0 % 0.0-0.2 MANDIFF (test code = MDIFF) NO NO RBC MORPH (test code = RBCMOR) NORMAL PROTHROMBIN TIME/[id number] 05:36:00 Test Item Value Reference Range Comments PROTIME (BEAKER) (test code = 759) 14.5 seconds 11.9-14.2 INR (BEAKER) (test code = 370) 1.2 <=5.9 Effective 12/22/2018: PT Reference Range ChangeNew: 11.9-14.2 Previous: 11.7- 14.7RECOMMENDED COUMADIN/WARFARIN INR THERAPY RANGESSTANDARD DOSE: 2.0-3.0 Includes: PROPHYLAXIS for venous thrombosis, systemic embolization; TREATMENT for venous thrombosis and/or pulmonary embolus.HIGH RISK: Target INR is2.5-3.5 for patients wiht mechanical heart valves.Within 24 hours, if on CoumadinBUN 2019-04-20 05:22:00 Test Item Value Reference Range Comments BLOOD UREA NITROGEN (BEAKER) (test code = 354) 7 mg/dL 7 -21 [id number] 05:22:00 Test Item Value Reference Range Comments SODIUM (BEAKER) (test code = 381) 139 meq/L 136-145 POTASSIUM (BEAKER) (test code = 379) 3.8 meq/L 3.5-5.1 CHLORIDE (BEAKER) (test code = 382) 109 meq/L 98-107 CO2 (BEAKER) (test code = 355) 23 meq/L - [id number] 05:22:00 Test Item Value Reference Range Comments CREATININE (BEAKER) (test 0.77 mg/dL 0.57-1.25 code = 358) EGFR (BEAKER) (test code 96 mL/min/1.73 sq m EST IMATED GFR IS NOT = 1092) ACCURATE CREA TININE CLEARANCE IN PRE DICTING GLOMERULAR FILTR ATION RATE. ESTIMATED GFR IS NOT APPLICABLE F OR DIALYSIS PATIENT S. Specimen slightly ictericHEMOGLOBIN AND [id number] 05:11:00 Test Item Value Reference Range Comments HEMOGLOBIN (BEAKER) (test code = 410) 13.1 GM/DL 11.2-15.7 HEMATOCRIT (BEAKER) (test code = 411) 39.4 % 34.1-44.9 [id number] 07:12:00 Test Item Value Reference Range Comments MAGNESIUM (BEAKER) (test code = 627) 2.2 mg/dL 1.6-2.6 BASIC METABOLIC [id number] 07:12:00 Test Item Value Reference Range Comments SODIUM (BEAKER) (test 141 meq/L 136-145 code = 381) POTASSIUM (BEAKER) (test 3.5 meq/L 3.5-5.1 code = 379) CHLORIDE (BEAKER) (test 106 meq/L 98-107 code = 382) CO2 (BEAKER) (test code = 25 meq/L 22-29 355) BLOOD UREA NITROGEN 12 mg/dL 7-21 (BEAKER) (test code = 354) CREATININE (BEAKER) (test 0.92 mg/dL 0.57-1.25 code = 358) GLUCOSE RANDOM (BEAKER) 95 mg/dL 70-105 (test code = 652) CALCIUM (BEAKER) (test 9.6 mg/dL 8.4-10.2 code = 697) EGFR (BEAKER) (test code 78 mL/min/1.73 sq m EST IMATED GFR IS NOT = 1092) ACCURATE CREA TININE CLEARANCE IN PRE DICTING GLOMERULAR FILTR ATION RATE. ESTIMATED GFR IS NOT APPLICABLE F OR DIALYSIS PATIENT S. Specimen slightly ictericCBC (HEMOGRAM ONLY)2019-04-19 06:56:00 Test Item Value Reference Range Comments WHITE BLOOD CELL COUNT (BEAKER) (test code = 6.2 K/ L 3.5 -10.5 775) RED BLOOD CELL COUNT (BEAKER) (test code = 761) 4.57 M/ L 3.93-5.22 HEMOGLOBIN (BEAKER) (test code = 410) 14.1 GM/DL 11.2-15.7 HEMATOCRIT (BEAKER) (test code = 411) 42.5 % 34.1-44.9 MEAN CORPUSCULAR VOLUME (BEAKER) (test code = 93.0 fL 79 .4-94.8 753) MEAN CORPUSCULAR HEMOGLOBIN (BEAKER) (test code 30.9 pg 25.6-32.2 = 751) MEAN CORPUSCULAR HEMOGLOBIN CONC (BEAKER) (test 33.2 GM/DL 32.2-35.5 code = 752) RED CELL DISTRIBUTION WIDTH (BEAKER) (test code 12.7 % 11.7-14.4 = 412) PLATELET COUNT (BEAKER) (test code = 756) 296 K/CU MM 150-45 0 MEAN PLATELET VOLUME (BEAKER) (test code = 754) 10.7 fL 9.4-12.3 NUCLEATED RED BLOOD CELLS (BEAKER) (test code = 0 /100 WBC 0-0 413) BRAIN NATRIURETIC [id number] 12:46:00 Test Item Value Reference Range Comments proBNP (test code = PBNP) 15 pg/mL 0-125 AMYLASE AND [id number] 12:39:00 Test Item Value Reference Range Comments AMYLASE (test code = 10A) 39 U/L 28-100 LIPASE (test code = 60A) 76 IU/L 73-393 COMPREHENSIVE METABOLIC [id number] 12:39:00 Test Item Value Reference Range Comments GLUCOSE (test code = 06D) 81 mg/dL 75-100 SODIUM (test code = 01A) 141 mmol/L 136-145 POTASSIUM (test code = 01B) 3.9 mmol/L 3.6-5.1 CHLORIDE (test code = 04A) 106 mmol/L 98-107 CO2 (test code = 02A) 24 mmol/L 22-32 ANION GAP (test code = ANG) 14.9 mmol/L BUN (test code = 05D) 14 mg/dL 7-18 CREATININE (test code = 03E) 0.8 mg/dL 0.4-1.1 BUN/CREA (test code = BCR) 17 12-20 CALCIUM (test code = 09D) 9.4 mg/dL 8.3-9.5 BILI TOTAL (test code = 11A) 3.3 mg/dL 0.2-1.0 PROTEIN (test code = 07D) 7.6 g/dL 6.4-8.2 ALBUMIN (test code = 08D) 4.4 g/dL 3.5-4.8 GLOBULIN (test code = GLB) 3.2 g/dL 1.5-3.8 ALB/GLOB (test code = AGRR) 1.4 1.0-2.6 ALK PHOS (test code = 35A) 64 IU/L 42-121 AST (test code = 30A) 19 IU/L <=42 ALT (test code = 31A) 31 IU/L <=78 SERUM [id number] 12:37:00 Test Item Value Reference Range Comments PREG SRM (test code = PGS) NEGATIVE NEGATIVE CARDIAC [id number] 12:37:00 Test Item Value Reference Range Comments TROPONIN I (test code = A84) <0.015 ng/mL 0.000-0.045 URINALYSIS WITH [id number] 12:34:00 Test Item Value Reference Range Comments COLOR (test code = COLU) DK YELLOW YELLOW CLARITY (test code = CLA) CLEAR CLEAR GLUCOSE UR (test code = UA GLUCOSE) NEGATIVE NEGATIVE BILI UR (test code = BILE) NEGATIVE NEGATIVE KETONES UR (test code = LUIS) 1+ NEGATIVE SP GRAVITY (test code = SPGR) 1.029 1.005-1.030 PH UR (test code = PH) 6.0 4.5-8.0 PROTEIN UR (test code = PU) TRACE NEGATIVE UROBIL UR (test code = UROQ) 0.2 EU/dL 0.2-1.0 NITRITE UR (test code = NITRITE) NEGATIVE NEGATIVE BLOOD UR (test code = UA BLOOD) NEGATIVE NEGATIVE LEUK ES UR (test code = LEUK) NEGATIVE NEGATIVE WBC UR (test code = UWBC) 0 /HPF 0-5 RBC UR (test code = URBC) 0 /HPF 0-2 EPITH UR (test code = UEPC) FEW /LPF FEW BACTERIA UR (test code = UBACT) NONE /HPF NONE CAST UR (test code = CAST) /LPF NONE CRYSTAL UR (test code = CRYU) / LPF NONE MUCUS UR (test code = MUC) / HPF NONE AMORPH UR (test code = MELIDA) / HPF NONE TRICH UR (test code = UTRICH) /HPF NONE YEAST UR (test code = UY) /HPF NONE SPERM UR (test code = USPERM) /HPF NONE [id number] 12:33:00 Test Item Value Reference Range Comments MAGNESIUM (test code = 48A) 2.4 mg/dL 1.8-2.4 PRO TIME AND [id number] 12:28:00 Test Item Value Reference Range Comments PT (test code = TT) 13.8 s 9.8-13.6 INR (test code = INR) 1.2 INRH (test code = INRH) SUGGESTED THERAPEUTIC RANGE FOR INR: 2.5 - 3.5 For Patients with Prosthetic Valves or Patients with recurrent Thromboembolic Events 2.0 - 3.0 For Most Other Applications PTT (test code = PTT) 34.4 s 20.2-38.0 PTTH (test code = PTTH) To monitor the effectiveness of heparin, we offer the Anti-Xa (Heparin Assay). It can be used for either unfractionated or LMW Heparin. Order Code is ANTI-XA CBC (INCLUDES AUTOMATED DIFFERENTIAL)2019-03-14 12:24:00 Test Item Value Reference Range Comments WBC (test code = WBC) 7.0 10\S\3/uL 4.5-13.0 RBC (test code = RBC) 4.91 10\S\6/uL 4.30-5.70 HGB (test code = HBG) 15.4 g/dL 12.0-15.5 HCT (test code = HCT) 43.9 % 35.0-44.0 MCV (test code = MCV) 89.4 fL 81.0-99.0 MCH (test code = MCH) 31.4 pg 27.0-31.0 MCHC (test code = MCHC) 35.1 g/dL 32.0-36.0 RDW (test code = RDW) 12.6 % 11.5-14.5 PLT (test code = PLT) 301 10\S\3/uL 130-400 MPV (test code = MPV) 11.1 fL 9.4-12.4 NEUTROP # (test code = NE#) 4.6 10\S\3/uL 1.6-8.0 LYMPH # (test code = LY#) 1.7 10\S\3/uL 1.1-3.5 MONOCYTE # (test code = MO#) 0.6 10\S\3/uL 0.0-1.1 EOSINOPH # (test code = EO#) 0.1 10\S\3/uL 0.0-0.7 BASOPHIL # (test code = BA#) 0.1 10\S\3/uL 0.0-0.3 IG # (test code = IG#) 0.03 10\S\3/uL 0.00-0.06 NRBC # (test code = NRBC#) 0.00 10\S\3/uL 0.00-0.01 NEUTROPH % (test code = NE%) 65.5 % 35.0-73.0 LYMPH % (test code = LY%) 24.1 % 20.0-55.0 MONO % (test code = MO%) 8.1 % 2.5-10.0 EOSINOPH % (test code = EO%) 0.9 % 0.0-5.0 BASOPHIL % (test code = BA%) 1.0 % 0.0-2.0 IG % (test code = IG%) 0.4 % 0.0-0.8 NRBC% (test code = NRBC%) 0.0 % 0.0-0.2 MANDIFF (test code = MDIFF) NO NO RBC MORPH (test code = RBCMOR) NORMAL XR CHEST 2 [id number] 11:40:31Exam: Chest x-ray 2 viewsHISTORY: Chest painLocation: [id number]:The heart size is normal and lung soria are clear. Osseous structures areintact.IMPRESSION:1. Normal chest. No change since 05/10/18.DRUGS OF ABUSE *WW*2019-03-13 08:55:00 Test Item Value Reference Range Comments DRUG SCRN (test code = HDOA) URINE DRUG SCREEN This is an unconfirmed screening result and should not be used for non-medical purposes CANNABINOD (test code = 88C) POSITIVE NEGATIVE AMPHETAMINE (test code = POSITIVE NEGATIVE 84A) BENZODIAZP (test code = 86A) Negative NEGATIVE BARBITURAT (test code = 85A) Negative NEGATIVE OPIATES (test code = 92B) Negative NEGATIVE COCAINE (test code = 87A) Negative NEGATIVE PHENCYCLID (test code = 66A) Negative NEGATIVE METHADONE (test code = 64A) Negative NEGATIVE DOAH (test code = DOAH.) URINE DRUG SCREEN Cut-off values are as follows: Cannabinoids 50 ng/mL Cocaine 300 ng/mL Amphetamines 1000 ng/mL Phencyclidine 25 ng/mL Benzodiazepines 200 ng.mL Methadone 300 ng/mL Barbiturates 200 ng/mL Opiates 2000 ng/mL URINALYSIS 2019-03-13 08:47:00 Test Item Value Reference Range Comments COLOR (test code = COLU) YELLOW YELLOW CLARITY (test code = CLA) CLEAR CLEAR GLUCOSE UR (test code = UA GLUCOSE) NEGATIVE NEGATIVE BILI UR (test code = BILE) NEGATIVE NEGATIVE KETONES UR (test code = LUIS) 2+ NEGATIVE SP GRAVITY (test code = SPGR) 1.010 1.005-1.030 PH UR (test code = PH) 7.5 4.5-8.0 PROTEIN UR (test code = PU) NEGATIVE NEGATIVE UROBIL UR (test code = UROQ) 0.2 EU/dL 0.2-1.0 NITRITE UR (test code = NITRITE) NEGATIVE NEGATIVE BLOOD UR (test code = UA BLOOD) NEGATIVE NEGATIVE LEUK ES UR (test code = LEUK) NEGATIVE NEGATIVE AUAM (test code = WAUAM) NO NO THYROID PANEL/SCREEN (TSH) 2019-03-13 08:35:00 Test Item Value Reference Range Comments TSH (test code = WTSH) 2.880 uIU/mL 0.358-3.740 COMPREHENSIVE METABOLIC ARCHER 2019-03-13 08:11:00 Test Item Value Reference Range Comments GLUCOSE (test code = 06D) 100 mg/dL 75-100 SODIUM (test code = 01A) 138 mmol/L 136-145 POTASSIUM (test code = 01B) 3.3 mmol/L 3.6-5.1 CHLORIDE (test code = 04A) 100 mmol/L 98-107 CO2 (test code = 02A) 24 mmol/L 22-32 ANION GAP (test code = ANG) 17.3 mmol/L BUN (test code = 05D) 8 mg/dL 7-18 CREATININE (test code = 03E) 1.2 mg/dL 0.4-1.1 BUN/CREA (test code = BCR) 7 12-20 CALCIUM (test code = 09D) 9.9 mg/dL 8.3-9.5 BILI TOTAL (test code = 11A) 3.5 mg/dL 0.2-1.0 PROTEIN (test code = 07D) 9.2 g/dL 6.4-8.2 ALBUMIN (test code = 08D) 5.2 g/dL 3.5-4.8 GLOBULIN (test code = GLB) 4.0 g/dL 1.5-3.8 ALB/GLOB (test code = AGRR) 1.3 1.0-2.6 ALK PHOS (test code = 35A) 73 IU/L 42-121 AST (test code = 30A) 15 IU/L <=42 ALT (test code = 31A) 25 IU/L <=78 PRO TIME AND PTT 2019-03-13 08:10:00 Test Item Value Reference Range Comments PT (test code = TT) 14.0 s 9.8-13.6 INR (test code = INR) 1.2 INRH (test code = INRH) SUGGESTED THERAPEUTIC RANGE FOR INR: 2.5 - 3.5 For Patients with Prosthetic Valves or Patients with recurrent Thromboembolic Events 2.0 - 3.0 For Most Other Applications PTT (test code = PTT) 31.3 s 20.2-38.0 PTTH (test code = PTTH) To monitor the effectiveness of heparin, we offer the Anti-Xa (Heparin Assay). It can be used for either unfractionated or LMW Heparin. Order Code is ANTI-XA SERUM MONOCLONAL 2019-03-13 08:05:00 Test Item Value Reference Range Comments PREG SRM (test code = PGS) NEGATIVE NEGATIVE MAGNESIUM WW2019-03-13 07:59:00 Test Item Value Reference Range Comments MAGNESIUM (test code = 48A) 2.0 mg/dL 1.8-2.4 CBC (INCLUDES AUTOMATED DIFFERENTIAL)*[id number] 07:51:00 Test Item Value Reference Range Comments WBC (test code = WBC) 11.3 10\S\3/uL 4.5-13.0 RBC (test code = RBC) 5.02 10\S\6/uL 4.30-5.70 HGB (test code = HBG) 15.9 g/dL 12.0-15.5 HCT (test code = HCT) 45.0 % 35.0-44.0 MCV (test code = MCV) 89.6 fL 81.0-99.0 MCH (test code = MCH) 31.7 pg 27.0-31.0 MCHC (test code = MCHC) 35.3 g/dL 32.0-36.0 RDW (test code = RDW) 12.4 % 11.5-14.5 PLT (test code = PLT) 346 10\S\3/uL 130-400 MPV (test code = MPV) 10.8 fL 9.4-12.4 NEUTROP # (test code = NE#) 8.9 10\S\3/uL 1.6-8.0 LYMPH # (test code = LY#) 1.6 10\S\3/uL 1.1-3.5 MONOCYTE # (test code = MO#) 0.8 10\S\3/uL 0.0-1.1 EOSINOPH # (test code = EO#) 0.0 10\S\3/uL 0.0-0.7 BASOPHIL # (test code = BA#) 0.0 10\S\3/uL 0.0-0.3 IG # (test code = IG#) 0.03 10\S\3/uL 0.00-0.06 NRBC # (test code = NRBC#) 0.00 10\S\3/uL 0.00-0.01 NEUTROPH % (test code = NE%) 78.6 % 35.0-73.0 LYMPH % (test code = LY%) 14.0 % 20.0-55.0 MONO % (test code = MO%) 6.7 % 2.5-10.0 EOSINOPH % (test code = EO%) 0.0 % 0.0-5.0 BASOPHIL % (test code = BA%) 0.4 % 0.0-2.0 IG % (test code = IG%) 0.3 % 0.0-0.8 NRBC% (test code = NRBC%) 0.0 % 0.0-0.2 MANDIFF (test code = WMDIFF) NO NO RBC MORPH (test code = WRBCMOR) NORMAL MR, PELVIS, WITHOUT / WITH IV [id number] 14:13:00FINAL REPORT EXAM: Lumbosacral plexus without and with IV contrast. 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 COMPARISON: None. [...] Varela MDReport Verified Date/Time: 03/02/2019 14:13:39 Reading Loca tion: [facility] Reading Room [address] [place] [address] XR ABDOMEN 2 VIEWS W/OMID [id number] 09:16:58EXAM: Chest and abdomen series, 3 viewsDictation location: [id number]: Upper abdominal painCOMPARISON: NoneDISCUSSION: An upright view of the chest and flat and upright views of theabdomen are submitted. No consolidation, pleural effusion, or pneumothorax isseen. The cardiomediastinal silhouette is w ithin normal limits. The bowel gaspattern is nonobstructive. No intra-abdominal free air is seen. Mild retainedstool is seen within the colon. No acute bony abnormalities are identified.IMPRESSION: No evidence of acute thoracic abnormality, bowel obstruction, orintra-abdominal free air. There is mild r etained stool within the colon.AMYLASE AND [id number] 09:04:00 Test Item Value Reference Range Comments AMYLASE (test code = 10A) 46 U/L 28-100 LIPASE (test code = 60A) 88 IU/L 73-393 COMPREHENSIVE METABOLIC [id number] 09:04:00 Test Item Value Reference Range Comments GLUCOSE (test code = 06D) 101 mg/dL 75-100 SODIUM (test code = 01A) 140 mmol/L 136-145 POTASSIUM (test code = 01B) 3.7 mmol/L 3.6-5.1 CHLORIDE (test code = 04A) 104 mmol/L 98-107 CO2 (test code = 02A) 27 mmol/L 22-32 ANION GAP (test code = ANG) 12.7 mmol/L BUN (test code = 05D) 11 mg/dL 7-18 CREATININE (test code = 03E) 0.9 mg/dL 0.4-1.1 BUN/CREA (test code = BCR) 12 12-20 CALCIUM (test code = 09D) 9.2 mg/dL 8.3-9.5 BILI TOTAL (test code = 11A) 1.7 mg/dL 0.2-1.0 PROTEIN (test code = 07D) 8.4 g/dL 6.4-8.2 ALBUMIN (test code = 08D) 4.5 g/dL 3.5-4.8 GLOBULIN (test code = GLB) 3.9 g/dL 1.5-3.8 ALB/GLOB (test code = AGRR) 1.2 1.0-2.6 ALK PHOS (test code = 35A) 74 IU/L 42-121 AST (test code = 30A) 23 IU/L <=42 ALT (test code = 31A) 36 IU/L <=78 [id number] 08:59:00 Test Item Value Reference Range Comments MAGNESIUM (test code = 48A) 2.2 mg/dL 1.8-2.4 SERUM [id number] 08:57:00 Test Item Value Reference Range Comments PREG SRM (test code = PGS) NEGATIVE NEGATIVE URINALYSIS WITH [id number] 08:57:00 Test Item Value Reference Range Comments COLOR (test code = COLU) YELLOW YELLOW CLARITY (test code = CLA) CLOUDY CLEAR GLUCOSE UR (test code = UA GLUCOSE) NEGATIVE NEGATIVE BILI UR (test code = BILE) NEGATIVE NEGATIVE KETONES UR (test code = LUIS) NEGATIVE NEGATIVE SP GRAVITY (test code = SPGR) 1.023 1.005-1.030 PH UR (test code = PH) 7.0 4.5-8.0 PROTEIN UR (test code = PU) TRACE NEGATIVE UROBIL UR (test code = UROQ) 1.0 EU/dL 0.2-1.0 NITRITE UR (test code = NITRITE) NEGATIVE NEGATIVE BLOOD UR (test code = UA BLOOD) NEGATIVE NEGATIVE LEUK ES UR (test code = LEUK) NEGATIVE NEGATIVE WBC UR (test code = UWBC) 1 /HPF 0-5 RBC UR (test code = URBC) 0 /HPF 0-2 EPITH UR (test code = UEPC) FEW /LPF FEW BACTERIA UR (test code = UBACT) NONE /HPF NONE CAST UR (test code = CAST) /LPF NONE CRYSTAL UR (test code = CRYU) / LPF NONE MUCUS UR (test code = MUC) / HPF NONE AMORPH UR (test code = MELIDA) / HPF NONE TRICH UR (test code = UTRICH) /HPF NONE YEAST UR (test code = UY) /HPF NONE SPERM UR (test code = USPERM) /HPF NONE CBC (INCLUDES AUTOMATED DIFFERENTIAL)2019-02-05 08:50:00 Test Item Value Reference Range Comments WBC (test code = WBC) 5.8 10\S\3/uL 4.5-13.0 RBC (test code = RBC) 4.58 10\S\6/uL 4.30-5.70 HGB (test code = HBG) 14.0 g/dL 12.0-15.5 HCT (test code = HCT) 42.2 % 35.0-44.0 MCV (test code = MCV) 92.1 fL 81.0-99.0 MCH (test code = MCH) 30.6 pg 27.0-31.0 MCHC (test code = MCHC) 33.2 g/dL 32.0-36.0 RDW (test code = RDW) 11.9 % 11.5-14.5 PLT (test code = PLT) 319 10\S\3/uL 130-400 MPV (test code = MPV) 10.9 fL 9.4-12.4 NEUTROP # (test code = NE#) 3.5 10\S\3/uL 1.6-8.0 LYMPH # (test code = LY#) 1.8 10\S\3/uL 1.1-3.5 MONOCYTE # (test code = MO#) 0.4 10\S\3/uL 0.0-1.1 EOSINOPH # (test code = EO#) 0.1 10\S\3/uL 0.0-0.7 BASOPHIL # (test code = BA#) 0.1 10\S\3/uL 0.0-0.3 IG # (test code = IG#) 0.01 10\S\3/uL 0.00-0.06 NRBC # (test code = NRBC#) 0.00 10\S\3/uL 0.00-0.01 NEUTROPH % (test code = NE%) 60.0 % 35.0-73.0 LYMPH % (test code = LY%) 30.6 % 20.0-55.0 MONO % (test code = MO%) 6.6 % 2.5-10.0 EOSINOPH % (test code = EO%) 1.6 % 0.0-5.0 BASOPHIL % (test code = BA%) 1.0 % 0.0-2.0 IG % (test code = IG%) 0.2 % 0.0-0.8 NRBC% (test code = NRBC%) 0.0 % 0.0-0.2 MANDIFF (test code = MDIFF) NO NO RBC MORPH (test code = RBCMOR) NORMAL Urinalysis macro (dipstick) panel - [id number] 15:18:00 Test Item Value Reference Range Comments Leukocytes (test code = Leukocytes) Negative Nitrite (test code = Nitrite) negative Urobilinogen (test code = Urobilinogen) .2 Protein (test code = Protein) Trace pH (test code = pH) 6.0 Blood (test code = Blood) Negative Specific Malone (test code = Specific Malone) 1.015 Ketone (test code = Ketone) Negative Bilirubin (test code = Bilirubin) Negative Glucose (test code = Glucose) Negative Appearance (test code = Appearance) Clear Color (test code = Color) Yellow test, [id number] 15:17:00 Test Item Value Reference Range Comments Test (test code = Test) negative Choriogonadotropin.beta subunit [Units/volume] in Serum or [id number] 01:46:00 Test Item Value Reference Range Comments HCG quantitative (test code = HCG quantitative) <0.1 0-5 U/S PELVIS *OW*2018-10-05 01:20:47LOCATION: [id number]: 18-year-old female who presents with pelvic pain.COMMENT:Sonographic [...] of a hemorrhagic cyst. This cyst measures [id number] mm in diameter.Free fluid is seen in the pelvic cul-de-sac in keeping with recent CT study.IMPRESSION:A complex appearing cyst having the appearance of a hemorrhagic cyst is seen inthis patient's left ovary. A small volume of free fluid is also seen in thepelvic cul-de-sac.Otherwise is pelvic ultrasound examination is unremarkable.CT ABDOMEN AND PELVIS WITH CONTRAST *OW* 2018-10-05 00:17:42LOCATION: [id number]: CT ABDOMEN AND PELVIS WITH CONTRAST *OW*HISTORY: [id number]: Lower abdominal pain TECHNIQUE: Axial imaging of the abdomen and pelvis from the lung base to thepubic symphysis following a dministration of 90 mL Omnipaque 300 intravenouscontrast. Venous [...] to the right. The uterus isnormal for age. The urinary bladder is unremarkably. There is no pelviclymphadenopathy.Gastrointestinal tract: Moderate formed fecal matter is present throughout thecolon. There is fecalization of normal caliber smallbowel loops, compatiblewith constipation. The stomach is moderately distended with ingested contents.No abnormal small bowel dilatation. Normal caliber appendix is identified. Nofocal fluid collections, ascites or evidence of pneumoperitoneum. Bones and soft tissues: The osseous structures are int act.IMPRESSION:1. Small to moderate pelvic free fluid. Mild asymmetric prominence of the leftovary compared to the right. If the patient is focally symptomatic, considerpelvic ultrasound.2. Radiographic findings compatible with constipation.3. The stomach is moderately distended with ingested contents, correlate forrecent oral intake.CHEM8+ i-STAT OW2018-10-04 22:26:00 Test Item Value Reference Range Comments SODIUM (test code = FE) 142 mmol/L 138-146 POTASSIUM (test code = KI) 3.5 mmol/L 3.5-4.9 CHLORIDE (test code = CLI) 102 mmol/L 98-109 CA IONIZED (test code = ICAI) 1.10 mmol/L 1.12-1.32 GLUCOSE (test code = GLUI) 95 mg/dL 75-100 TCO2 (test code = TCO2) 28 mmol/L 24-29 BUN (test code = BUN1) 8 mg/dL 8-26 CREATININE (test code = CREAI) 0.7 mg/dL 0.6-1.3 ANION GAP (test code = GANG) 16.0 mmol/L HGB (test code = MHB) 16.0 g/dL 12.0-17.0 HCT (test code = MHCT) 47.0 % 38.0-51.0 URINE OW2018-10-04 22:24:00 Test Item Value Reference Range Comments PREG UR (test code = PGU) Negative NEGATIVE CBC (INCLUDES AUTOMATED DIFFERENTIAL) *2018-10-04 22:22:00 Test Item Value Reference Range Comments WBC (test code = WBC) 12.5 10\S\3/uL 4.5-13.0 RBC (test code = RBC) 4.70 10\S\6/uL 4.30-5.70 HGB (test code = HBG) 15.7 g/dL 12.0-15.5 HCT (test code = HCT) 44.6 % 35.0-44.0 MCV (test code = MCV) 94.8 fL 81.0-99.0 MCH (test code = MCH) 33.4 pg 27.0-31.0 MCHC (test code = MCHC) 35.2 g/dL 32.0-36.0 RDW (test code = RDW) 14.5 % 11.5-14.5 PLT (test code = PLT) 295 10\S\3/uL 130-400 MPV (test code = OMPV) 8.3 fL 6.2-10.2 NEUTROP # (test code = NE#) 9.6 10\S\3/uL 1.6-8.0 LYMPH # (test code = LY#) 2.2 10\S\3/uL 1.1-3.5 MID # (test code = GMID#) 0.8 10\S\3/uL 0.0-1.1 GRA % (test code = GRA%) 76.4 % 35.0-73.0 LYMPH % (test code = GLY%) 17.2 % 20.0-55.0 MID % (test code = GMID%) 6.4 % 0.0-10.0 URINALYSIS W/O MICROSCOPICOW2018-10-04 22:18:00 Test Item Value Reference Range Comments COLOR (test code = COLU) Yellow YELLOW CLARITY (test code = CLA) Cloudy CLEAR GLUCOSE UR (test code = UA Negative NEGATIVE GLUCOSE) BILI UR (test code = BILE) Negative NEGATIVE KETONES UR (test code = LUIS) Negative NEGATIVE SP GRAVITY (test code = 1.025 1.005-1.030 SPGR) PH UR (test code = PH) 7.0 4.5-8.0 PROTEIN UR (test code = PU) Negative NEGATIVE NITRITE UR (test code = Negative NEGATIVE NITRITE) UROBIL UR (test code = 1.0 E.U./dL GUROQ) UROBIL UR (test code = UROBILINOGEN REFERENCE GUROQC) RANGE 0.2 - 1.0 EU/dL BLOOD UR (test code = UA Negative NEGATIVE BLOOD) LEUK ES UR (test code = Negative NEGATIVE LEUK) DRUGS OF ABUSE*OW*2018-05-10 13:45:00 Test Item Value Reference Range Comments DRUG SCRN (test code = HDOA) URINE DRUG SCREEN This is an unconfirmed screening result and should not be used for non-medical purposes PHENCYCLID (test code = Negative NEGATIVE GPCP) BENZODIAZE (test code = Negative NEGATIVE GBZO) COCAINE (test code = GCOC) Negative NEGATIVE AMPHETAMIN (test code = Negative NEGATIVE GAMP) THC (test code = GTHC) Negative NEGATIVE OPIATES (test code = SHADY) Negative NEGATIVE BARBITURAT (test code = Negative NEGATIVE GBAR) TCA (test code = GTCA) Negative NEGATIVE DOAH (test code = DOAH) URINE DRUG CREEN CUT OFF VALUES Amphetamines 1000 ng/mL Barbituates 300 ng/mL Benzodiazepines 300 ng/mL Cocaine 300 ng/mL Opiates 300 ng/mL Phencyclidine 25 ng/mL THC 50 ng/mL Tricyclic Antidepressants 1000 ng/mL CHEM8+ i-STAT OW2018-05-10 13:41:00 Test Item Value Reference Range Comments SODIUM (test code = FE) 140 mmol/L 138-146 POTASSIUM (test code = KI) 4.0 mmol/L 3.5-4.9 CHLORIDE (test code = CLI) 101 mmol/L 98-109 CA IONIZED (test code = ICAI) 1.25 mmol/L 1.12-1.32 GLUCOSE (test code = GLUI) 85 mg/dL 75-100 TCO2 (test code = TCO2) 27 mmol/L 24-29 BUN (test code = BUN1) 18 mg/dL 8-26 CREATININE (test code = CREAI) 0.8 mg/dL 0.6-1.3 ANION GAP (test code = GANG) 17.0 mmol/L HGB (test code = MHB) 15.3 g/dL 12.0-17.0 HCT (test code = MHCT) 45.0 % 38.0-51.0 CBC (INCLUDES AUTOMATED DIFFERENTIAL) *2018-05-10 13:40:00 Test Item Value Reference Range Comments WBC (test code = WBC) 5.7 10\S\3/uL 4.5-13.0 RBC (test code = RBC) 4.71 10\S\6/uL 4.30-5.70 HGB (test code = HBG) 15.6 g/dL 12.0-15.5 HCT (test code = HCT) 44.0 % 35.0-44.0 MCV (test code = MCV) 93.4 fL 81.0-99.0 MCH (test code = MCH) 33.1 pg 27.0-31.0 MCHC (test code = MCHC) 35.5 g/dL 32.0-36.0 RDW (test code = RDW) 13.0 % 11.5-14.5 PLT (test code = PLT) 251 10\S\3/uL 130-400 MPV (test code = OMPV) 8.6 fL 6.2-10.2 NEUTROP # (test code = NE#) 0.0 10\S\3/uL 1.6-8.0 LYMPH # (test code = LY#) 1.6 10\S\3/uL 1.1-3.5 MID # (test code = GMID#) 0.6 10\S\3/uL 0.0-1.1 GRA % (test code = GRA%) 62.4 % 35.0-73.0 LYMPH % (test code = GLY%) 27.8 % 20.0-55.0 MID % (test code = GMID%) 9.8 % 0.0-10.0 XR CHEST 1 VIEW *OW*2018-05-10 13:11:28EXAM: XR CHEST 1 VIEW *OW*.LOCATION: D4.HISTORY: [id number]: Chest pain.COMPARISON: None.TECHNIQUE: Single AP view of the chest was obtained. FINDINGS:The heart is normal in size. The lungs are clear. Noacute osseous abnormalityis identified.IMPRESSION:No acute cardiopulmonary abnormality.
--- NOTE | 2019-11-23 22:20 | RAD REPORT ---
EXAM DESCRIPTION: RAD - Hand Left 2 View - 11/23/2019 10:09 pm CLINICAL HISTORY: Left hand pain status post injury FINDINGS: Mildly to moderately displaced oblique fracture involves the fifth metacarpal. No dislocat ion Limited two view series obtained
--- NOTE | 2019-11-23 22:24 | ER ---
Nurse's Notes [facility] Name: Lindsay Santiago Age: 19 yrs Sex: Female : 2000 Arrival Date: 11/23/2019 Time: 21:10 Bed 8 Private MD: Diagnosis: Displaced fracture of neck of fifth metacarpal bone, left hand Presentation: 11/22 21:15 Chief complaint: Patient states: Hit left hand on wall while play fighting Thursday ll1 night. Pain to hand since. Coronavirus screen: Proceed with normal triage. Patient denies a cough. Patient reports shortness of breath or difficulty breathing. Patient denies measured and/or subjective temperature greater than 100.4F prior to today's visit. Patient denies travel on a cruise ship or to a country the [facility] currently lists as an affected area. Patient denies contact with known and/or suspected case of COVID-19. Ebola Screen: Patient denies travel to an Ebola-affected area in the 21 days before illness onset. Initial Sepsis Screen: Does the patient meet any 2 criteria? No. Patient's initial sepsis screen is negative. Does the patient have a suspected source of infection? No. Patient's initial sepsis screen is negative. Risk Assessment: Do you want to hurt yourself or someone else? Patient reports no desire to harm self or others. Onset of symptoms was November 20, 2019. 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 - Social history:: Patient/guardian denies using alcohol, street drugs, tobacco products, Smoking status: Patient denies any tobacco usage or history of. Screenin:19 Abuse screen: Denies threats or abuse. Nutritional screening: No deficits noted. ea Tuberculosis screening: No symptoms or risk factors identified. Fall Risk None identified. Assessment: 21:18 General: Appears in no apparent distress. Behavior is calm, cooperative, appropriate ea for age. Pain: Complains of pain in left hand. Neuro: Level of Consciousness is awake, alert, obeys commands, Oriented to person, place, time, situation. Cardiovascular: Patient's skin is warm and dry. Respiratory: Airway is patent Respiratory effort is even, unlabored, Respiratory pattern is regular, symmetrical. Musculoskeletal: Reports pain in left hand. Injury Description: Bruise sustained to medial aspect of left hand and dorsum of left hand is green, purple, was sustained 2 days ago. 22:22 Reassessment: Patient and/or family updated on plan of care and expected duration. Pain ea level reassessed. Patient is alert, oriented x 3, equal unlabored respirations, skin warm/dry/pink. 22:28 Reassessment: Patient and/or family updated on plan of care and expected duration. Pain ea level reassessed. Patient is alert, oriented x 3, equal unlabored respirations, skin warm/dry/pink. Discharge instruction given to patient, verbalized the understanding of instruction. Pt left ED ambulatory tolerating well. Vital Signs: 21:15 BP 149 / 96; Pulse 83; Resp 17; Temp 98.0; Pulse Ox 99% ; Pain 8/10; ll1 22:21 BP 119 / 66; Pulse 78; Resp 18; Pulse Ox 98% on R/A; ea ED Course: 21:10 Patient arrived in ED. cl3 21:11 Lennox Rosenbaum MD is Attending Physician. tw4 21:16 Triage completed. ll1 21:17 Arm band placed on Patient placed in an exam room, on a stretcher. ll1 21:18 Karen Brennan, RN is Primary Nurse. ea 21:19 Patient has correct armband on for positive identification. Bed in low position. Call ea light in reach. Side rails up X2. 22:09 Hand Left 2 View XRAY In Process Unspecified. EDMS 22:20 Esau wrap to left wrist, DIP of left little finger, PIP of left little finger, MCP of jp3 left little finger, DIP of left ring finger, PIP of left ring finger and MCP of left ring finger Orthoglass splint: Ulnar gutter/Boxer splint applied on left forearm. 22:23 Faizan Marsh MD is Referral Physician. tw4 22:23 Umberto Mohamud MD is Referral Physician. tw4 22:28 No provider procedures requiring assistance completed. Patient did not have IV access ea during this emergency room visit. Administered Medications: No medications were administered Outcome: 22:24 Discharge ordered by MD. garcia 22:28 Discharged to home ambulatory. kendal 22: Condition: stable 22:28 Discharge instructions given to patient, Instructed on discharge instructions, follow up and referral plans. medication usage, Demonstrated understanding of instructions, follow-up care, medications, Prescriptions given X 1. 22:28 Patient left the ED. kendal Signatures: Dispatcher [employer] EDMS Karen Brennan, RN RN Lennox Jimenez MD MD tw4 Sameer Gomez jp3 Divine Leong3 Deana Leong RN RN ll1
--- NOTE | 2019-11-23 22:24 | EDPHYS ---
Physician Documentation [facility] Name: Lindsay Santiago Age: 19 yrs Sex: Female : 2000 Arrival Date: 11/23/2019 Time: 21:10 Bed 8 Private MD: ED Physician Lennox Rosenbaum HPI: 11/22 21:25 This 19 yrs old Female presents to ER via Ambulatory with complaints of Hand tw4 Pain, Hand Injury. 21:25 The patient or guardian reports injury. The complaints affect the PIP of left little tw4 finger and MCP of left little finger. Context: The problem was sustained at home, resulted from a direct blow. Onset: The symptoms/episode began/occurred 4 day(s) ago. Modifying factors: The symptoms are alleviated by nothing, the symptoms are aggravated by nothing. The patient has not experienced similar symptoms in the past. 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 - Social history:: Patient/guardian denies using alcohol, street drugs, tobacco products, Smoking status: Patient denies any tobacco usage or history of. ROS: 21:25 Constitutional: Negative for fever, chills, and weight loss, Eyes: Negative for injury, tw4 pain, redness, and discharge, Cardiovascular: Negative for chest pain, palpitations, and edema, Respiratory: Negative for shortness of breath, cough, wheezing, and pleuritic chest pain, Abdomen/GI: Negative for abdominal pain, nausea, vomiting, diarrhea, and constipation, Back: Negative for injury and pain, Skin: Negative for injury, rash, and discoloration, Neuro: Negative for headache, weakness, numbness, tingling, and seizure. 21:25 MS/extremity: Positive for injury or acute deformity, tenderness. Exam: 21:25 Constitutional: This is a well developed, well nourished patient who is awake, alert, tw4 and in no acute distress. Head/Face: Normocephalic, atraumatic. Eyes: Pupils equal round and reactive to light, extra-ocular motions intact. Lids and lashes normal. Conjunctiva and sclera are non-icteric and not injected. Cornea within normal limits. Periorbital areas with no swelling, redness, or edema. Chest/axilla: Normal chest wall appearance and motion. Nontender with no deformity. No lesions are appreciated. Cardiovascular: Regular rate and rhythm with a normal S1 and S2. No gallops, murmurs, or rubs. Normal PMI, no JVD. No pulse deficits. Respiratory: Lungs have equal breath sounds bilaterally, clear to auscultation and percussion. No rales, rhonchi or wheezes noted. No increased work of breathing, no retractions or nasal flaring. Abdomen/GI: Soft, non-tender, with normal bowel sounds. No distension or tympany. No guarding or rebound. No evidence of tenderness throughout. Neuro: Awake and alert, GCS 15, oriented to person, place, time, and situation. Cranial nerves II-XII grossly intact. Motor strength 5/5 in all extremities. Sensory grossly intact. Cerebellar exam normal. Normal gait. 21:25 Musculoskeletal/extremity: Extremities: noted in the dorsal aspect of proximal phalanx of left little finger and dorsum of left hand: Vital Signs: 21:15 BP 149 / 96; Pulse 83; Resp 17; Temp 98.0; Pulse Ox 99% ; Pain 8/10; ll1 22:21 BP 119 / 66; Pulse 78; Resp 18; Pulse Ox 98% on R/A; ea MDM: 21:11 Patient medically screened. tw4 21:25 Differential diagnosis: dislocation, closed fracture, contusion, abrasion. Data tw4 reviewed: vital signs, nurses notes. Data interpreted: Pulse oximetry: Interpretation: normal. Counseling: I had a detailed discussion with the patient and/or guardian regarding: the historical points, exam findings, and any diagnostic results supporting the discharge/admit diagnosis. 11/22 21:11 Order name: Hand Left 2 View XRAY tw4 Administered Medications: No medications were administered Disposition: 11/23/19 22:24 Discharged to Home. Impression: Displaced fracture of neck of fifth metacarpal bone, left hand. - Condition is Stable. - Discharge Instructions: Boxer's Fracture. - Prescriptions for Ibuprofen 800 mg Oral Tablet - take 1 tablet by ORAL route every 8 hours As needed take with food; 30 tablet. - Medication Reconciliation Form, Thank You Letter, Antibiotic Education, Prescription Opioid Use form. - Follow up: Private Physician; When: Upon discharge from the Emergency Department; Reason: Recheck today's complaints, Continuance of care, Re-evaluation by your physician. Follow up: Faizan Marsh MD; When: Upon discharge from the Emergency Department; Reason: Recheck today's complaints, Continuance of care, Re-evaluation by your physician. Follow up: Umberto Mohamud MD; When: Upon discharge from the Emergency Department; Reason: Recheck today's complaints, Continuance of care, Re-evaluation by your physician. Signatures: Dispatcher [employer] EDMS Karen Brennan RN RN ea Lennox Rosenbaum MD MD tw4 Deana Leong RN RN ll1 Corrections: (The following items were deleted from the chart) 22:28 22:24 11/23/2019 22:24 Discharged to Home. Impression: Displaced fracture of neck of ea fifth metacarpal bone, left hand. Condition is Stable. Forms are Medication Reconciliation Form, Thank You Letter, Antibiotic Education, Prescription Opioid Use. Follow up: Private Physician; When: Upon discharge from the Emergency Department; Reason: Recheck today's complaints, Continuance of care, Re-evaluation by your physician. Follow up: Dr. Faizan Marsh; When: Upon discharge from the Emergency Department; Reason: Recheck today's complaints, Continuance of care, Re-evaluation by your physician. Follow up: Umberto Mohamud; When: Upon discharge from the Emergency Department; Reason: Recheck today's complaints, Continuance of care, Re-evaluation by your physician. tw4
[2019-11-23 22:34] VITALS: TEMP 98
[2019-11-23 22:35] VITALS: BP 119/66; O2SAT 98
== END 2019-11-23 22:28 | disposition home or self-care (01) ==
LOC: ER 21:07
PROC: 2W3DX1Z Immobilization of Left Lower Arm using Splint (ICD-10-PCS; principal; 2019-11-23)
DX: S62.337A Displaced fracture of neck of fifth metacarpal bone, left hand, initial encounter for closed fracture (principal); W22.8XXA Striking against or struck by other objects, initial encounter; Y93.89 Activity, other specified; Y92.9 Unspecified place or not applicable
CPT/HCPCS: 99283

== ENCOUNTER 2019-11-25 15:08 | Emergency (ER) | payer OTHER ==
--- OUTSIDE RECORDS SUMMARY | 2019-11-25 15:15 | XMS REPORT ---
:2000 Author Organization [facility] t Address [address] [place] [address] Care Team Providers Name Role Phone SERRANO Unavailable Unavailable DR Mellisa WEBSTER Unavailable Unavailable FARRUKH, Unavailable Unavailable NIELS, Unavailable Unavailable DR Taylor VALENZUELA. Unavailable Unavailable LOCO, Unavailable Unavailable VANESSA CALDERÓN Unavailable Unavailable RISA, DR Dinh Unavailable Unavailable BA, Unavailable Unavailable KAREN, Unavailable Unavailable POTMAR, DR Tyler Unavailable Unavailable OEI, Unavailable Unavailable Problems Condition Condition Condition Status [...] Facility Department ID 2019-10-05 Inpatient C ZACH [facility] RAD [id number] 14:45:00 CHAPINCITO 2019-09-15 2019-09-15 Emergency E ELEANOR [facility] WWECC [id number] 10:06:00 11:30:00 LAURA 2019-09-04 2019-09-04 Emergency E FARRUKH [facility] ECC [id number] 09:01:00 09:55:00 FARZANA XIAO 2019-07-30 2019-07-31 Emergency E NIELS [facility] ECC [id number] 23:29:00 00:40:00 RUSTAM 2019-07-08 2019-07-09 Emergency E FAIZAN VALENZUELA [facility] ECC [id number] 23:31:00 01:46:00 2019-04-22 2019-04-22 Emergency E BERONICA DANTE [facility] ECC [id number] 11:33:00 11:50:00 2019-03-14 2019-03-14 Emergency E RISA [facility] ECC [id number] 10:55:00 13:00:00 YOAV 2019-03-13 2019-03-13 Emergency E ARIANNE SHEARER [facility] [id number] 07:11:00 09:06:00 2019-02-05 2019-02-05 Emergency E RISA [facility] ECC [id number] 07:32:00 09:45:00 YOAV 2018-12-24 2018-12-24 Alfa [facility] [place] - [id number] 00:00:00 00:00:00 MD Bere: [address] [address], Ph. [phone] 2018-12-02 2018-12-02 Emergency E EZIO JONES [facility] [id number] 03:57:00 04:35:00 2018-10-20 2018-10-20 [place] - [id number] 00:00:00 00:00:00 MD Bere: [address] [address], Ph. [phone] 2018-10-04 2018-10-05 Outpatient E POTROSE MARYALOV, [facility] [id number] 21:48:00 03:05:00 BRIAN 2018-05-10 2018-05-10 Outpatient E DEMETRIA, [facility] [id number] 12:53:00 14:30:00 ALFONSO Results Test Description Test Time Test Comments Text Results Atomic Results Result Comments XR CHEST 1 VIEW PORTABLE 2019-07-31 00:31:52 LOC ATION: H43 EXAM: XR CHEST 1 VIEW PORTABLEHISTORY: [id number]: Dyspnea TECHNIQUE: Frontal view of t he [...] PE : <235 ng/mL D-DU* COMPREHENSIVE METABOLIC [id number] 00:17:00 Test Item Value Reference Range Comments [...] code = 31A) 23 IU/L <=78 TROPONIN [id number] 00:14:00 Test Item Value Reference Range Comments TROPONIN I (test code = A84) <0.015 ng/mL 0.000-0.045 URINE [id number] 00:03:00 Test Item Value Reference Range Comments [...] RBCMOR) NORMAL CT ABDOMEN AND PELVIS WITH [id number] 00:48:44EXAM: CT abdomen pelvis with contrastLOCATION: [id number]: Lower abdominal painTECHNIQUE: Contrast en hanced CT [...] fluid. IMPRESSION:No acute findings. Normal appendix.AMYLASE AND [id number] 00:09:00 Test Item Value Reference Range Comments AMYLASE (test code = 10A) 62 U/L 28-100 LIPASE (test code = 60A) 128 IU/L 73-393 COMPREHENSIVE METABOLIC [id number] 00:09:00 Test Item Value Reference Range Comments [...] = 31A) 24 IU/L <=78 URINALYSIS WITH [id number] 00:05:00 Test Item Value Reference Range Comments [...] (test code = USPERM) /HPF NONE SERUM [id number] 00:01:00 Test Item Value Reference Range Comments [...] MORPH (test code = RBCMOR) NORMAL PROTHROMBIN TIME/[id number] 05:36:00 Test Item Value Reference Range Comments [...] code = 354) 7 mg/dL 7 -21 [id number] 05:22:00 Test Item Value Reference Range Comments SODIUM (BEAKER) (test code = 381) 139 meq/L 136-145 POTASSIUM (BEAKER) (test code = 379) 3.8 meq/L 3.5-5.1 CHLORIDE (BEAKER) (test code = 382) 109 meq/L 98-107 CO2 (BEAKER) (test code = 355) 23 meq/L - [id number] 05:22:00 Test Item Value Reference Range Comments CREATININE (BEAKER) (test 0.77 mg/dL 0.57-1.25 code = 358) EGFR (BEAKER) (test code 96 mL/min/1.73 sq m EST IMATED GFR IS NOT = 1092) ACCURATE CREA TININE CLEARANCE IN PRE DICTING GLOMERULAR FILTR ATION RATE. ESTIMATED GFR IS NOT APPLICABLE F OR DIALYSIS PATIENT S. Specimen slightly ictericHEMOGLOBIN AND [id number] 05:11:00 Test Item Value Reference Range Comments HEMOGLOBIN (BEAKER) (test code = 410) 13.1 GM/DL 11.2-15.7 HEMATOCRIT (BEAKER) (test code = 411) 39.4 % 34.1-44.9 [id number] 07:12:00 Test Item Value Reference Range Comments MAGNESIUM (BEAKER) (test code = 627) 2.2 mg/dL 1.6-2.6 BASIC METABOLIC [id number] 07:12:00 Test Item Value Reference Range Comments [...] 0 /100 WBC 0-0 413) BRAIN NATRIURETIC [id number] 12:46:00 Test Item Value Reference Range Comments proBNP (test code = PBNP) 15 pg/mL 0-125 AMYLASE AND [id number] 12:39:00 Test Item Value Reference Range Comments AMYLASE (test code = 10A) 39 U/L 28-100 LIPASE (test code = 60A) 76 IU/L 73-393 COMPREHENSIVE METABOLIC [id number] 12:39:00 Test Item Value Reference Range Comments [...] code = 31A) 31 IU/L <=78 SERUM [id number] 12:37:00 Test Item Value Reference Range Comments PREG SRM (test code = PGS) NEGATIVE NEGATIVE CARDIAC [id number] 12:37:00 Test Item Value Reference Range Comments TROPONIN I (test code = A84) <0.015 ng/mL 0.000-0.045 URINALYSIS WITH [id number] 12:34:00 Test Item Value Reference Range Comments [...] UR (test code = USPERM) /HPF NONE [id number] 12:33:00 Test Item Value Reference Range Comments MAGNESIUM (test code = 48A) 2.4 mg/dL 1.8-2.4 PRO TIME AND [id number] 12:28:00 Test Item Value Reference Range Comments [...] code = RBCMOR) NORMAL XR CHEST 2 [id number] 11:40:31Exam: Chest x-ray 2 viewsHISTORY: Chest painLocation: [id number]:The heart size is normal and lung soria [...] 48A) 2.0 mg/dL 1.8-2.4 CBC (INCLUDES AUTOMATED DIFFERENTIAL)*[id number] 07:51:00 Test Item Value Reference Range Comments [...] NORMAL MR, PELVIS, WITHOUT / WITH IV [id number] 14:13:00FINAL REPORT EXAM: Lumbosacral plexus without and [...] Verified Date/Time: 03/02/2019 14:13:39 Reading Loca tion: [facility] Reading Room [address] [place] [address] XR ABDOMEN 2 VIEWS W/OMID [id number] 09:16:58EXAM: Chest and abdomen series, 3 viewsDictation location: [id number]: Upper abdominal painCOMPARISON: NoneDISCUSSION: An upright view [...] r etained stool within the colon.AMYLASE AND [id number] 09:04:00 Test Item Value Reference Range Comments AMYLASE (test code = 10A) 46 U/L 28-100 LIPASE (test code = 60A) 88 IU/L 73-393 COMPREHENSIVE METABOLIC [id number] 09:04:00 Test Item Value Reference Range Comments [...] (test code = 31A) 36 IU/L <=78 [id number] 08:59:00 Test Item Value Reference Range Comments MAGNESIUM (test code = 48A) 2.2 mg/dL 1.8-2.4 SERUM [id number] 08:57:00 Test Item Value Reference Range Comments PREG SRM (test code = PGS) NEGATIVE NEGATIVE URINALYSIS WITH [id number] 08:57:00 Test Item Value Reference Range Comments [...] RBCMOR) NORMAL Urinalysis macro (dipstick) panel - [id number] 15:18:00 Test Item Value Reference Range Comments Leukocytes (test code = Leukocytes) Negative Nitrite (test code = Nitrite) negative Urobilinogen (test code = Urobilinogen) .2 Protein (test code = Protein) Trace pH (test code = pH) 6.0 Blood (test code = Blood) Negative Specific [place] (test code = Specific [place]) 1.015 Ketone (test code = Ketone) Negative Bilirubin (test code = Bilirubin) Negative Glucose (test code = Glucose) Negative Appearance (test code = Appearance) Clear Color (test code = Color) Yellow test, [id number] 15:17:00 Test Item Value Reference Range Comments Test (test code = Test) negative Choriogonadotropin.beta subunit [Units/volume] in Serum or [id number] 01:46:00 Test Item Value Reference Range Comments HCG quantitative (test code = HCG quantitative) <0.1 0-5 U/S PELVIS *OW*2018-10-05 01:20:47LOCATION: [id number]: 18-year-old female who presents with pelvic pain.COMMENT:Sonographic [...] of a hemorrhagic cyst. This cyst measures gfctbyjenqmzf46 mm in diameter.Free fluid is seen in the pelvic cul-de-sac in keeping with recent CT study.IMPRESSION:A complex appearing cyst having the appearance of a hemorrhagic cyst is seen inthis patient's left ovary. A small volume of free fluid is also seen in thepelvic cul-de-sac.Otherwise is pelvic ultrasound examination is unremarkable.CT ABDOMEN AND PELVIS WITH CONTRAST *OW* 2018-10-05 00:17:42LOCATION: [id number]: CT ABDOMEN AND PELVIS WITH CONTRAST *OW*HISTORY: [id number]: Lower abdominal pain TECHNIQUE: Axial imaging of [...] GTHC) Negative NEGATIVE OPIATES (test code = SHDAY) Negative NEGATIVE BARBITURAT (test code = Negative [...] 13:11:28EXAM: XR CHEST 1 VIEW *OW*.LOCATION: D4.HISTORY: [id number]: Chest pain.COMPARISON: None.TECHNIQUE: Single AP view of the chest was obtained. FINDINGS:The heart is normal in size. The lungs are clear. Noacute osseous abnormalityis identified.IMPRESSION:No acute cardiopulmonary abnormality.
--- NOTE | 2019-11-25 16:59 | EDPHYS ---
Physician Documentation [facility] Name: Lindsay Santiago Age: 19 yrs Sex: Female : 2000 Arrival Date: 11/25/2019 Time: 15:09 Bed 12 Private MD: ED Physician Panda Sanford HPI: 11/24 15:40 This 19 yrs old Female presents to ER via Ambulatory with complaints of Hand kb Injury, Finger Injury. 15:40 The patient or guardian reports decreased range of motion, injury, pain, swelling, kb tenderness. The complaints affect the medial aspect of left hand. Context: The problem was sustained at home, resulted from a direct blow, a wall. Onset: The symptoms/episode began/occurred 3 day(s) ago. Modifying factors: The symptoms are alleviated by nothing, the symptoms are aggravated by nothing. Associated signs and symptoms: Pertinent positives: numbness distally, tingling distally, Pertinent negatives: cyanosis distally, decreased sensation distally, fever, nausea, vomiting. Severity of symptoms: At their worst the symptoms were moderate, in the emergency department the symptoms are unchanged. The patient has not experienced similar symptoms in the past. The patient has been recently seen at the [facility] Emergency Department, this week, for similar complaints. Pt reports she hit her hand against a wall on Thursday, came in Thursday night and was diagnosed with a fracture. Splint applied and pt was sent home to follow up with ortho. Pt reports she started having tingling and pain to wrist and medial aspect of left hand, as well as numbness to pinky finger so she took the splint off. States she noticed bruising to her hand that wasn't there on before the splint was placed so she came to get it evaluated again. Has appt with ortho on Thursday. 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 - Social history:: Smoking status: . ROS: 15:35 Constitutional: Negative for fever, chills, and weight loss, Cardiovascular: Negative kb for chest pain, palpitations, and edema, Respiratory: Negative for shortness of breath, cough, wheezing, and pleuritic chest pain, Abdomen/GI: Negative for abdominal pain, nausea, vomiting, diarrhea, and constipation, Back: Negative for injury and pain, Neuro: Negative for headache, weakness, numbness, tingling, and seizure. 15:35 MS/extremity: Positive for injury or acute deformity, decreased range of motion, ecchymosis, pain, swelling, tenderness, tingling, of the medial aspect of left hand. Exam: 15:35 Constitutional: This is a well developed, well nourished patient who is awake, alert, kb and in no acute distress. Head/Face: Normocephalic, atraumatic. Chest/axilla: Normal chest wall appearance and motion. Nontender with no deformity. No lesions are appreciated. Cardiovascular: Regular rate and rhythm with a normal S1 and S2. No gallops, murmurs, or rubs. Normal PMI, no JVD. No pulse deficits. Respiratory: Lungs have equal breath sounds bilaterally, clear to auscultation and percussion. No rales, rhonchi or wheezes noted. No increased work of breathing, no retractions or nasal flaring. Abdomen/GI: Soft, non-tender, with normal bowel sounds. No distension or tympany. No guarding or rebound. No evidence of tenderness throughout. Neuro: Awake and alert, GCS 15, oriented to person, place, time, and situation. Cranial nerves II-XII grossly intact. Motor strength 5/5 in all extremities. Sensory grossly intact. Cerebellar exam normal. Normal gait. 15:35 Musculoskeletal/extremity: Extremities: grossly normal except: noted in the medial aspect of left hand: decreased ROM, ecchymosis, pain, swelling, tenderness, ROM: limited active range of motion due to pain, in the left little finger, Circulation is intact in all extremities. the left little finger Tingling of extremity. Vital Signs: 15:30 BP 146 / 94; Pulse 68; Resp 18; Temp 99.1; Pulse Ox 100% ; sv MDM: 15:35 Patient medically screened. kb 15:35 Data reviewed: vital signs, nurses notes. Data interpreted: Pulse oximetry: on room air kb is 100 %. Interpretation: normal. Counseling: I had a detailed discussion with the patient and/or guardian regarding: the historical points, exam findings, and any diagnostic results supporting the discharge/admit diagnosis, radiology results, the need for outpatient follow up, a orthopedic surgeon, to return to the emergency department if symptoms worsen or persist or if there are any questions or concerns that arise at home. ED course: Cap refill less than 2 sec in left extremity, including pinky finger. Pt reports pins and needles to lateral aspect of left hand. Mild swelling noted, moderate ecchymosis. . 16:58 ED course: Educated on RICE and to keep appt with ortho on Thursday. . kb 11/24 15:34 Order name: Hand Left 3 View XRAY 11/24 16:29 Order name: Ulnar Gutter splint; Complete Time: 17:14 kb Administered Medications: No medications were administered Disposition: 11/25 14:37 Co-signature as Attending Physician, Panda Sanford MD I agree with the assessment and [facility] plan of care. Disposition: 11/25/19 16:58 Discharged to Home. Impression: Displaced fracture of base of fifth metacarpal bone. left hand. - Condition is Stable. - Discharge Instructions: Metacarpal Fracture, Wquw-ui-[id number]. - Medication Reconciliation Form, Thank You Letter, Antibiotic Education, Prescription Opioid Use form. - Follow up: Emergency Department; When: As needed; Reason: Worsening of condition. Follow up: Private Physician; When: 2 - 3 days; Reason: Recheck today's complaints, Continuance of care, Re-evaluation by your physician. Signatures: Dispatcher [employer] EDMS Kellie Zapata, Shira Helms RN RN sv Anderson, Corey, MD MD [facility] Corrections: (The following items were deleted from the chart) 11/24 15:44 15:35 MS/extremity: Positive for injury or acute deformity, decreased range of motion, kb ecchymosis, pain, swelling, tenderness, tingling, of the medial aspect of left hand, kb 15:44 15:40 Associated signs and symptoms: Pertinent positives: tingling distally, Pertinent kb negatives: cyanosis distally, decreased sensation distally, fever, nausea, numbness distally, vomiting, kb 15:44 15:40 Pt reports she hit her hand against a wall on Thursday, came in Thursday night kb and was diagnosed with a fracture. Splint applied and pt was sent home to follow up with ortho. Pt reports she started having tingling and pain to wrist and medial aspect of left hand so she took the splint off. States she noticed bruising to her hand that wasn't there on before the splint was placed so she came to get it evaluated again. Has appt with ortho on Thursday. kb 17:16 16:58 11/25/2019 16:58 Discharged to Home. Impression: Displaced fracture of base of sv fifth metacarpal bone. left hand. Condition is Stable. Forms are Medication Reconciliation Form, Thank You Letter, Antibiotic Education, Prescription Opioid Use. Follow up: Emergency Department; When: As needed; Reason: Worsening of condition. Follow up: Private Physician; When: 2 - 3 days; Reason: Recheck today's complaints, Continuance of care, Re-evaluation by your physician. kb
--- NOTE | 2019-11-25 16:59 | ER ---
Nurse's Notes [facility] Name: Lindsay Santiago Age: 19 yrs Sex: Female : 2000 Arrival Date: 11/25/2019 Time: 15:09 Bed 12 Private MD: Diagnosis: Displaced fracture of base of fifth metacarpal bone. left hand Presentation: 11/24 15:30 Chief complaint: Patient states: hit her left hand on Thursday and was seen here Thu and was told she has a fx. Was sent home with a splint and today she was having discomfort and her 5th digit was numb and removed the splint to help with comfort. Pt reports tingling to her left hand. Coronavirus screen: Proceed with normal triage. Patient denies a cough. Patient denies shortness of breath or difficulty breathing. Patient denies measured and/or subjective temperature greater than 100.4F prior to today's visit. Patient denies travel on a cruise ship or to a country the [facility] currently lists as an affected area. Patient denies contact with known and/or suspected case of COVID-19. Ebola Screen: No symptoms or risks identified at this time. Initial Sepsis Screen: Does the patient meet any 2 criteria? No. Patient's initial sepsis screen is negative. Does the patient have a suspected source of infection? No. Patient's initial sepsis screen is negative. Risk Assessment: Do you want to hurt yourself or someone else? Patient reports no desire to harm self or others. Onset of symptoms was November 20, 2019. 15:30 Method Of Arrival: Ambulatory sv 15:30 Acuity: TAMIKA 4 sv Triage Assessment: 15:35 General: Appears in no apparent distress. uncomfortable, Behavior is calm, cooperative, sv appropriate for age. Pain: Complains of pain in left hand. Neuro: Level of Consciousness is awake, alert, obeys commands, Oriented to person, place, time, situation, Gait is steady. Respiratory: Respiratory effort is even, unlabored. Derm: Bruising that is dark purple, on left hand. Musculoskeletal: Range of motion: limited in PIP of left little finger Swelling present in left hand. 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 - Social history:: Smoking status: . Screenin:00 Abuse screen: Denies threats or abuse. Denies injuries from another. Nutritional sv screening: No deficits noted. Tuberculosis screening: No symptoms or risk factors identified. Fall Risk None identified. Assessment: 17:00 Reassessment: Patient appears in no apparent distress at this time. No changes from sv previously documented assessment. Patient and/or family updated on plan of care and expected duration. Pain level reassessed. Patient is alert, oriented x 3, equal unlabored respirations, skin warm/dry/pink. See triage assessment. Cardiovascular: Pulses are palpable in right radial artery and left radial artery. Derm: Skin is normal. Musculoskeletal: Range of motion: intact in all extremities. 17:15 Reassessment: Patient appears in no apparent distress at this time. No changes from sv previously documented assessment. Patient and/or family updated on plan of care and expected duration. Pain level reassessed. Patient is alert, oriented x 3, equal unlabored respirations, skin warm/dry/pink. Cardiovascular: Capillary refill < 3 seconds is brisk in left fingers. Musculoskeletal: Range of motion: intact in all extremities. Vital Signs: 15:30 BP 146 / 94; Pulse 68; Resp 18; Temp 99.1; Pulse Ox 100% ; sv ED Course: 15:09 Patient arrived in ED. ag5 15:33 Triage completed. sv 15:33 Arm band placed on. sv 15:35 [facility]ata [facility]C [facility] kb 15:35 Panda Sanford MD is Attending Physician. kb 17:00 Patient has correct armband on for positive identification. Call light in reach. sv 17:00 No provider procedures requiring assistance completed. Patient did not have IV access sv during this emergency room visit. Orthoglass splint: Ulnar gutter/Boxer splint applied on left forearm. 17:06 Hand Left 3 View XRAY In Process Unspecified. EDMS 17:14 Shira Smith, RN is Primary Nurse. sv 19:07 Primary Nurse role handed off by Shira Smith, RN sv Administered Medications: No medications were administered Outcome: 16:58 Discharge ordered by . kb 17:16 Discharged to home ambulatory. sv 17:16 Condition: stable 17:16 Discharge instructions given to patient, Instructed on discharge instructions, follow up and referral plans. splint care Demonstrated understanding of instructions, follow-up care, splint care. 17:16 Patient left the ED. sv Signatures: Dispatcher [employer] EDKellie Melgar, SPRAY DRIER OPERATOR-C SPRAY DRIER OPERATOR-Shira Blanton, RN RN sabiha Grider, Shanna ag5
--- NOTE | 2019-11-25 17:18 | RAD REPORT ---
EXAM DESCRIPTION: RAD - Hand Left 3 View - 11/25/2019 5:05 pm CLINICAL HISTORY: Pain;Numbness/tingling COMPARISON: Hand Left 2 View dated 11/23/2019 FINDINGS: Oblique fracture is seen involving shaft fifth metacarpal with mild displacement. No dislo cation.
[2019-11-25 17:23] VITALS: BP 146/94; TEMP 99.1; O2SAT 100
== END 2019-11-25 17:16 | disposition home or self-care (01) ==
LOC: ER 15:08
PROC: 2W3KX1Z Immobilization of Left Finger using Splint (ICD-10-PCS; principal; 2019-11-25)
DX: S62.317A Displaced fracture of base of fifth metacarpal bone, left hand, initial encounter for closed fracture (principal); W22.8XXA Striking against or struck by other objects, initial encounter; Y93.9 Activity, unspecified; Y92.009 Unspecified place in unspecified non-institutional (private) residence as the place of occurrence of the external cause
CPT/HCPCS: 99283

== ENCOUNTER 2020-01-09 16:51 | Emergency (ER) | payer OTHER ==
--- NOTE | 2020-01-09 17:15 | EDPHYS ---
Physician Documentation [facility] Name: Lindsay Santiago Age: 19 yrs Sex: Female : 2000 Arrival Date: 01/09/2020 Time: 16:54 Bed 20 Private MD: ED Physician Gerard Ruby HPI: 01/08 17:13 This 19 yrs old Female presents to ER via Unassigned with complaints of pm1 Piercing on Abdomen Problem. 17:13 Associated signs and symptoms: Pertinent negatives: abdominal pain, dysuria, fever, pm1 nausea, vomiting, diarrhea. The patient has not experienced similar symptoms in the past. The patient has not recently seen a physician. Patient had a belly button piercing place last Thursday when she was drunk. Today she reported that it was irritating her and she wanted it removed. She went to her normal tattoo parlor and they were unable to removed it. Her tattoo parlor informed here that it was causing irritation because it was the wrong type of jewelry. Her current jewelry is the type that is placed after the piercing hole has healed. Patient currently has numbing ointment applied to area. She denies any fever, discharge, redness or swelling to the area. 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 - Social history:: Smoking status: Patient denies any tobacco usage or history of. ROS: 17:13 Constitutional: Negative for fever, chills, and weight loss, Cardiovascular: Negative pm1 for chest pain, palpitations, and edema, Respiratory: Negative for shortness of breath, cough, wheezing, and pleuritic chest pain, Abdomen/GI: Negative for abdominal pain, nausea, vomiting, diarrhea, and constipation, Back: Negative for injury and pain, MS/Extremity: Negative for injury and deformity. 17:13 Neuro: Negative for headache, weakness, numbness, tingling, and seizure. 17:13 Skin: Positive for pain with piercing to umbilicus, Negative for abscesses, cellulitis, ecchymosis, erythema, hematoma, swelling. Exam: 17:13 Constitutional: This is a well developed, well nourished patient who is awake, alert, pm1 and in no acute distress. Head/Face: Normocephalic, atraumatic. 17:13 Back: No spinal tenderness. No costovertebral tenderness. Full range of motion. 17:13 Cardiovascular: Exam negative for acute changes, Rate: normal, Rhythm: regular, Pulses: no pulse deficits are appreciated. 17:13 Respiratory: Exam negative for acute changes, respiratory distress, shortness of breath. 17:13 Abdomen/GI: Inspection: abdomen appears normal, Palpation: abdomen is soft and non-tender, in all quadrants, mass, is not appreciated, rebound tenderness, is not appreciated. 17:13 Skin: Appearance: normal except for affected area, piercing present to umbilicus, abscess, not appreciated, of the abdomen and umbilical area, cellulitis, is not appreciated, on the abdomen and umbilical area. 17:13 Neuro: Exam negative for acute changes, Orientation: is normal, Mentation: is normal, Motor: is normal, moves all fours, Gait: is steady, at a normal pace, without difficulty. Vital Signs: 17:10 BP 134 / 86; Pulse 82; Resp 18; Temp 98.0; Pulse Ox 99% on R/A; ph Procedures: 17:18 Foreign Body Removal: belly button jewelry piercing, from the umbilical area, by turned pm1 the ball of piercing with pliers then unscrewed with fingers. The patient tolerated the removal well, No discharge, redness or swelling present from piercing. MDM: 16:59 Patient medically screened. pm1 17:13 Data reviewed: vital signs. Data interpreted: Pulse oximetry: on room air is 100 %. pm1 Interpretation: normal. 17:13 Counseling: I had a detailed discussion with the patient and/or guardian regarding: the pm1 historical points, exam findings, and any diagnostic results supporting the discharge/admit diagnosis, the need for outpatient follow up, to return to the emergency department if symptoms worsen or persist or if there are any questions or concerns that arise at home. Administered Medications: 17:39 Not Given (Pt reports that tetanus is UTD): Tetanus-Diphtheria Toxoid Adult 0.5 ml IM ph once Disposition: 18:09 Co-signature as Attending Physician, Gerard Ruby MD. rn Disposition: 01/09/20 17:14 Discharged to Home. Impression: Superficial foreign body of abdomen, lower back, pelvis and external genitals - piercing removed from umbilicus. - Condition is Stable. - Discharge Instructions: Foreign Body. - Prescriptions for Bactrim DS 800- 160 mg Oral Tablet - take 1 tablet by ORAL route every 12 hours for 10 days; 20 tablet. - Medication Reconciliation Form, Thank You Letter, Antibiotic Education, Prescription Opioid Use form. - Follow up: Emergency Department; When: As needed; Reason: Worsening of condition. Follow up: Private Physician; When: 2 - 3 days; Reason: Recheck today's complaints, Continuance of care, Re-evaluation by your physician. - Problem is new. - Symptoms have improved. Signatures: Gerard Ruby MD MD rn Hall, Patricia, RN RN Marcus Christensen, JACKELINE FLUTE TEACHER pm1 Corrections: (The following items were deleted from the chart) 17:47 17:14 01/09/2020 17:14 Discharged to Home. Impression: Superficial foreign body of ph abdomen, lower back, pelvis and external genitals - piercing removed from umbilicus. Condition is Stable. Forms are Medication Reconciliation Form, Thank You Letter, Antibiotic Education, Prescription Opioid Use. Follow up: Emergency Department; When: As needed; Reason: Worsening of condition. Follow up: Private Physician; When: 2 - 3 days; Reason: Recheck today's complaints, Continuance of care, Re-evaluation by your physician. Problem is new. Symptoms have improved. pm1
--- NOTE | 2020-01-09 17:48 | ER ---
Nurse's Notes [facility] Name: Lindsay Santiago Age: 19 yrs Sex: Female : 2000 Arrival Date: 01/09/2020 Time: 16:54 Bed 20 Private MD: Diagnosis: Superficial foreign body of abdomen, lower back, pelvis and external genitals-piercing removed from umbilicus Presentation: 01/08 17:10 Chief complaint: Patient states: Recently had naval pierced, jewelry is not large/long ph enough to allow for swelling and is unable to remove it. States, " I went to a piercing studio and they couldn't get it out and told me to come here. Coronavirus screen: Patient denies a cough. Patient denies shortness of breath or difficulty breathing. Patient denies measured and/or subjective temperature greater than 100.4F prior to today's visit. Patient denies travel on a cruise ship or to a country the [facility] currently lists as an affected area. Patient denies contact with known and/or suspected case of COVID-19. Ebola Screen: No symptoms or risks identified at this time. Initial Sepsis Screen: Does the patient meet any 2 criteria? No. Patient's initial sepsis screen is negative. Does the patient have a suspected source of infection? No. Patient's initial sepsis screen is negative. Risk Assessment: Do you want to hurt yourself or someone else? Patient reports no desire to harm self or others. Onset of symptoms was January 09, 2020. 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 - Social history:: Smoking status: Patient denies any tobacco usage or history of. Screenin:44 Abuse screen: Denies threats or abuse. Denies injuries from another. Nutritional ph screening: No deficits noted. Tuberculosis screening: No symptoms or risk factors identified. Fall Risk None identified. Assessment: 17:20 General: Appears in no apparent distress. comfortable, slender, well groomed, Behavior ph is cooperative, appropriate for age, anxious. Pain: Complains of pain in umbilical area. Neuro: Level of Consciousness is awake, alert, obeys commands, Oriented to person, place, time, situation. Derm: Skin is healthy with good turgor, Skin is pink, warm \\T\\ dry. redness noted to naval, ERP at bedside to remove naval piercing, able to untwist and remove w/ no difficulty, pt tolerated well. Vital Signs: 17:10 BP 134 / 86; Pulse 82; Resp 18; Temp 98.0; Pulse Ox 99% on R/A; ph ED Course: 16:54 Patient arrived in ED. bp1 16:58 Marcus Page NP is PHCP. pm1 16:58 Gerard Ruby MD is Attending Physician. pm1 17:02 Zayra Irving RN is Primary Nurse. ph 17:43 Triage completed. ph 17:44 Patient has correct armband on for positive identification. Bed in low position. Call ph light in reach. Side rails up X 1. Pulse ox on. NIBP on. Door closed. Noise minimized. Warm blanket given. 17:45 Arm band placed on. ph 17:46 No provider procedures requiring assistance completed. Patient did not have IV access ph during this emergency room visit. Administered Medications: 17:39 Not Given (Pt reports that tetanus is UTD): Tetanus-Diphtheria Toxoid Adult 0.5 ml IM ph once Outcome: 17:14 Discharge ordered by MD. pm1 17:46 Discharged to home ambulatory. ph 17:46 Condition: good 17:46 Discharge instructions given to patient, Instructed on discharge instructions, follow up and referral plans. medication usage, Demonstrated understanding of instructions, follow-up care, medications, Prescriptions given X 1. 17:47 Patient left the ED. ph Signatures: Zayra Irving, BLAKE RN ph Marcus Page, JACKELINE SPOT MACHINE OPERATOR pm1 Kim Landers bp1
[2020-01-09 17:54] VITALS: BP 134/86; TEMP 98; O2SAT 99
--- OUTSIDE RECORDS SUMMARY | 2020-01-09 19:55 | XMS REPORT | Clinical Summary ---
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 Mr 02/28/2019 Outside Orders Central Scheduling Libby Damon y of right femoral nerve, sequela (Primary Dx); MD David Femoral neuropa thy of right lower extremity after 01/08/2019 Social History Tobacco Use Types Packs/Day Years Used Date Never Smoker Smokeless Tobacco: Never Used Alcohol Use Drinks/Week oz/Week Comments Yes occasional Sex Assigned at Date Recorded Not on file Job Start Date Occupation Industry Not on file Not on file Not on file Travel History Travel Start Travel End No recent travel history available. Last Filed Vital Signs Vital Sign Reading Time Taken Blood Pressure 125/60 04/20/2019 7:10 AM CDT Pulse 79 04/20/2019 7:10 AM CDT Temperature 36.7 C (98 F) 04/20/2019 7:10 AM CDT Respiratory Rate 18 04/20/2019 7:10 AM CDT Oxygen Saturation 100% 04/20/2019 7:10 AM CDT Inhaled Oxygen Concentration - - Weight 55.1 kg (121 lb 8 oz) 04/20/2019 7:10 A M CDT Height 154.9 cm (5' 1") 04/19/2019 6:25 AM CDT Body Mass Index 22.96 04/20/2019 7:10 AM CDT Plan of Treatment Not on file Procedures Procedure Name Priority Date/Time Associated Diagnosis Comme nts RHYTHM STRIP - SCAN 04/25/2019 3:33 PM CDT RHYTHM STRIP - SCAN 04/21/2019 1:32 PM CDT CARDIAC CATH REPORT 04/21/2019 1:31 - SCAN PM CDT TRANSFUSION SERVICE 04/20/2019 5:51 REPORT - SCAN PM CDT HEMOGLOBIN AND Routine 04/20/2019 4:45 Results f or this HEMATOCRIT AM CDT procedure are i n the results section. CREATININE Routine 04/20/2019 4:44 Results for this AM CDT procedure are i n the results section. BUN Routine 04/20/2019 4:44 Results for this AM CDT procedure are i n the results section. ELECTROLYTE PANEL Routine 04/20/2019 4:44 Result s for this AM CDT procedure are i n the results section. PROTHROMBIN TIME/INR Routine 04/20/2019 4:44 Res ults for this AM CDT procedure are i n the results section. EPS & ABLATION 04/19/2019 7:25 Palpitations AM CDT Fatigue, unspecified type Other chest pain Case Notes (1)case POP6/ / MAC ANESTHES IA/ WPW w/ carto POCT , URINE STAT 04/19/2019 7:10 AM CDT Results for this procedure are in the resu lts section. ABORH, MANUAL STAT 04/19/2019 7:05 AM CDT Res ults for this procedure are in the resu lts section. ECG 12-LEAD Routine 04/19/2019 7:04 AM CDT Procedure Note - Interface, External Ris In - 04/19/2019 7:08 AM CDT Ventricular Rate 70 BPM Atrial Rate 70 BPM P-R Interval 98 ms QRS Duration 136 ms Q-T Interval 414 ms QTC Calculation(Bazett) 447 ms P Magnolia 23 degrees R Magnolia -17 degrees T Magnolia 85 degrees Normal sinus rhythm Kjdzr-Dzsyvjwcc-Hmvvl Abnormal ECG No previous ECGs available ECG 12-LEAD Routine 04/19/2019 7:04 AM Results for this CDT procedure are i n the results section. TYPE AND SCREEN, Routine 04/19/2019 6:44 AM Resu lts for this AUTOMATED CDT procedure are i n the results section. CBC (HEMOGRAM ONLY) Routine 04/19/2019 6:44 AM R esults for this CDT procedure are i n the results section. MAGNESIUM Routine 04/19/2019 6:44 AM Results for this CDT procedure are i n the results section. BASIC METABOLIC Routine 04/19/2019 6:44 AM Resul ts for this PANEL (7) CDT procedure are i n the results section. MR PELVIS WITH & Routine 03/02/2019 11:30 AM Injury of right R esults for this WITHOUT IV CONTRAST CDT femoral nerve, proced ure are in sequela the results Femoral neuropathy section. of right lower extremity after 01/08/2019 Results RHYTHM STRIP - SCAN (04/25/2019 3:33 PM CDT)Only the most recent of2 results within the time period is included. Narrative Performed At This result has an attachment that is no t available. CARDIAC CATH REPORT - SCAN (04/21/2019 1:31 PM CDT) Narrative Performed At This result has an attachment that is no t available. TRANSFUSION SERVICE REPORT - SCAN (04/20/2019 5:51 PM CDT) Narrative Performed At This result has an attachment that is no t available. Hemoglobin and hematocrit (04/20/2019 4:45 AM CDT) Hemoglobin 13.1 11.2 - 15.7 GM/DL [facility] Hematocrit 39.4 34.1 - 44.9 % [facility] Specimen Blood Performing Organization Address City/State/Zipcode Phone Number [facility] [address] [place] [address] CENTER Prothrombin time/INR (04/20/2019 4:44 AM CDT) Protime 14.5 (H) 11.9 - 14.2 seconds [facility] INR 1.2 <=5.9 [facility] Specimen Blood Narrative Performed At Effective 12/22/2018: PT Reference Range [facility] Change New: 11.9-14.2Previous: 11.7-14.7 RECOMMENDED COUMADIN/WARFARIN INR THERAPY RANGES STANDARD DOSE: 2.0-3.0Includes: PROPHYLAXIS for venous thrombosis, systemic embolization; TREATMENT for venous thrombosis and/or pulmonary embolus. HIGH RISK: Target INR is 2.5-3.5 for patients wiht mechanical heart valves. Within 24 hours, if on Coumadin Performing Organization Address [facility] Phone Number [address] [address] CENTER BUN (04/20/2019 4:44 AM CDT) BUN 7 7 - 21 mg/dL [facility] Specimen Blood Performing Organization Address [facility] Phone Number [address] [address] CENTER Creatinine (04/20/2019 4:44 AM CDT) Creatinine 0.77 0.57 - 1.25 mg/dL [facility] EGFR 96Comment: ESTIMATED GFR IS mL/min/1.73 sq m [facility] NOT ACCURATE CREATININE [facility] CLEARANCE IN PREDICTING GLOMERULAR FILTRATION RATE. ESTIMATED GFR IS NOT APPLICABLE FOR DIALYSIS PATIENTS. Specimen Blood Narrative Performed At Specimen slightly icteric [facility] Performing Organization Address [facility] Phone Number [address] [address] CENTER Electrolytes (04/20/2019 4:44 AM CDT) Sodium 139 136 - 145 meq/L [facility] Potassium 3.8 3.5 - 5.1 meq/L [facility] Chloride 109 (H) 98 - 107 meq/L [facility] CO2 23 22 - 29 meq/L [facility] Specimen Blood Performing Organization Address City/[facility] Phone Number [facility] [address] [place] [phone] CENTER POCT , urine (04/19/2019 7:10 AM CDT) Test Urine, POC Negative Control line present?, POC Yes Background clear?, POC Yes UPT Cassette Lot #, POC [id number] UPT Cassette Expiration Date, POC 2020-09-23 Specimen Urine ABORH, manual (04/19/2019 7:05 AM CDT) ABO Grouping O [facility] Rh Factor POS [facility] Specimen Blood Performing Organization Address [facility] Phone Number [address] [address] ECG 12 lead (04/19/2019 7:04 AM CDT) Specimen Narrative Performed At Ventricular Rate 70 BPM GE MUSE Atrial Rate 70 BPM P-R Interval 98 ms QRS Duration 136 ms Q-T Interval 414 ms QTC Calculation(Bazett) 447 ms P Magnolia 23 degrees R Magnolia -17 degrees T Magnolia 85 degrees Normal sinus rhythmwith short OR and delta waves Desic-Mokkssihc-Dqadb Abnormal ECG No previous ECGs available Confirmed by MD ELLIOTT, ALIYA ([id number]) on 04/19/2019 1:51:07 PM Procedure Note Interface, External Ris In - 04/19/2019 1:51 PM CDT Ventricular Rate 70 BPM Atrial Rate 70 BPM P-R Interval 98 ms QRS Duration 136 ms Q-T Interval 414 ms QTC Calculation(Bazett) 447 ms P Magnolia 23 degrees R Magnolia -17 degrees T Magnolia 85 degrees Normal sinus rhythm with short OR and d elta waves Qwrfw-Ncdgncaov-Gxktm Abnormal ECG No previous ECGs available Confirmed by MD GALLAGHER YOCHAI ([id number]) on 04/19/2019 1:51:07 PM Performing Organization Address City/[facility] Phone Number GE MUSE Type and screen, automated (04/19/2019 6:44 AM CDT) ABO/RH AUTOMATED (BEAKER) O POSITIVE [facility] Ab Scrn NEGATIVE [facility] Specimen Blood Performing Organization Address City/[facility]/Zipcode Phone Number [facility] [address] [place] [phone] CBC (Hemogram only) (04/19/2019 6:44 AM CDT) WBC 6.2 3.5 - 10.5 K/L [facility] RBC 4.57 3.93 - 5.22 M/L [facility] Hemoglobin 14.1 11.2 - 15.7 GM/DL [facility] Hematocrit 42.5 34.1 - 44.9 % [facility] MCV 93.0 79.4 - 94.8 fL [facility] MCH 30.9 25.6 - 32.2 pg [facility] MCHC 33.2 32.2 - 35.5 GM/DL [facility] RDW 12.7 11.7 - 14.4 % [facility] Platelets 296 150 - 450 K/CU MM [facility] MPV 10.7 9.4 - 12.3 fL [facility] nRBC 0 0 - 0 /100 WBC [facility] Specimen Blood Performing Organization Address City/[facility]/Zipcode Phone Number [facility] [address] [place] [address] CENTER Magnesium (04/19/2019 6:44 AM CDT) Magnesium 2.2 1.6 - 2.6 mg/dL [facility] Specimen Blood Performing Organization Address City/[facility]/Zipcode Phone Number [facility] [address] [place] [address] CENTER Basic metabolic panel (04/19/2019 6:44 AM CDT) Sodium 141 136 - 145 meq/L [facility] Potassium 3.5 3.5 - 5.1 meq/L [facility] Chloride 106 98 - 107 meq/L [facility] CO2 25 22 - 29 meq/L [facility] BUN 12 7 - 21 mg/dL [facility] Creatinine 0.92 0.57 - 1.25 mg/dL [facility] Glucose 95 70 - 105 mg/dL [facility] Calcium 9.6 8.4 - 10.2 mg/dL [facility] EGFR 78Comment: ESTIMATED GFR IS mL/min/1.73 sq m [facility] NOT ACCURATE CREATININE [facility] CLEARANCE IN PREDICTING GLOMERULAR FILTRATION RATE. ESTIMATED GFR IS NOT APPLICABLE FOR DIALYSIS PATIENTS. Specimen Blood Narrative Performed At Specimen slightly icteric [facility] Performing Organization Address City/State/Zipcode Phone Number [facility] [address] [place] [address] CENTER MR pelvis without & with IV contrast (03/02/2019 11:30 AM CDT) Specimen Narrative Performed At FINAL REPORT [employer] [facility] EXAM: Lumbosacral plexus without and wit h IV contrast. INDICATION: Concern for right femoral ne uropathy. COMPARISON: None. TECHNIQUE: 2-D and 3-D coronal T2 with f at saturation, coronal STIR, precontrast coronal T1 with fat saturati on. Axial, sagittal and coronal MIP images were reformatted from the axial 3-D T2 source data. Postcontrast axial and coronal T1 with and without fat saturation. IV contrast: 6 cc Gadavist. FINDINGS: The lumbosacral plexus is symmetric and size and signal intensity. The included segments of the femoral ner ves appear symmetric in size and signal intensity. No mass or montana sive lesion identified. No abnormal enhancement. The psoas, piriform and gluteal muscles appear symmetric in size and signal intensity without evidence of atr ophy. No marrow signal changes within the incl uded lumbar spine, sacrum and pelvis. Normal lumbar lordotic curvature is main tained. Lumbar canal and foramina are patent. IMPRESSION: No lumbosacral plexus abnormalities. Signed: Rubén Varela MD Report Verified Date/Time:03/02/2019 14:13:39 Reading Location: [facility] [employer] [facility] [place] m 2 - B01.626 Procedure Note Interface, External Ris In - 03/02/2019 2:15 PM CDT FINAL REPORT EXAM: Lumbosacral plexus without and wit h IV contrast. INDICATION: Concern for right femoral ne uropathy. COMPARISON: None. TECHNIQUE: 2-D and 3-D coronal T2 with f at saturation, coronal STIR, precontrast coronal T1 with fat saturati on. Axial, sagittal and coronal MIP images were reformatted from the axial 3-D T2 source data. Postcontrast axial and coronal T1 with and without fat saturation. IV contrast: 6 cc Gadavist. FINDINGS: The lumbosacral plexus is symmetric and size and signal intensity. The included segments of the femoral ner ves appear symmetric in size and signal intensity. No mass or montana sive lesion identified. No abnormal enhancement. The psoas, piriform and gluteal muscles appear symmetric in size and signal intensity without evidence of atr ophy. No marrow signal changes within the incl uded lumbar spine, sacrum and pelvis. Normal lumbar lordotic curvature is main tained. Lumbar canal and foramina are patent. IMPRESSION: No lumbosacral plexus abnormalities. Signed: Rubén Varela MD Report Verified Date/Time: 03/02/2019 1 4:13:39 Reading Location: [employer] [facility] [place] m 2 - B01.626 Performing Organization Address City/State/Zipcode Phone Number [facility] after 01/08/2019 Insurance Payer Benefit Plan / Subscriber ID Type Phone Address Group MEDICAID - MEDICAID MEDICAID [facility] xxxxxxxxx Medicaid Contracted MGD CARE Advance Directives For more information, please contact:[place] [address] [place], [place] [phone] Code Status Date Activated Date Inactivated Comments Full Code 04/19/2019 12:50 PM 04/20/2019 2:07 PM This code status was determined by: Patient Full Code 04/19/2019 6:33 AM 04/19/2019 12:50 PM This code status was determined by: Patient Full Code 04/19/2019 6:33 AM 04/19/2019 6:33 AM This code status was determined by: Patient
--- OUTSIDE RECORDS SUMMARY | 2020-01-09 19:58 | XMS REPORT | Continuity of Care Document ---
:2000 Author Organization [facility] t Address [address] [place] [address] Dr. Krishnamurthy [address] [place] [address] Care Team Providers Name Role Phone Pcp Primary Care Physician Unavailable ZACH Attending Clinician Unavailable DR Mellisa WEBSTER Attending Clinician Unavailable DR FARRUKH Attending Clinician Unavailable DR NIELS Attending Clinician Unavailable DR Maureen VALENZUELA Attending Clinician Unavailable DR BERONICA Attending Clinician Unavailable Noelle Calderón MD Attending Clinician [phone] Rayo Vincent Attending Clinician NOELLE CALDERÓN Attending Clinician Unavailable Noelle Calderón MD Attending Clinician [phone] Fabrizio LORD Attending Clinician Unavailable DR JANKI Attending Clinician Unavailable David Damon MD Attending Clinician 1.5, Ross Attending Clinician Unavailable Guillermina Damon MD Attending Clinician DR KAREN Attending Clinician Unavailable DR Jayson STOVER Attending Clinician Unavailable DR DEMETRIA Attending Clinician Unavailable ZACH Admitting Clinician Unavailable DR Mellisa WEBSTER Admitting Clinician Unavailable DR FARRUKH Admitting Clinician Unavailable DR NIELS Admitting Clinician Unavailable DR Maureen VALENZUELA Admitting Clinician Unavailable DR EBRONICA Admitting Clinician Unavailable NOELLE CALDERÓN Admitting Clinician Unavailable DR Fabrizio LORD Admitting Clinician Unavailable DR JANKI Admitting Clinician Unavailable DR KAREN Admitting Clinician Unavailable DR Jayson STOVER Admitting Clinician Unavailable DR DEMETRIA Admitting Clinician Unavailable Payers Payer Name Policy Policy Number Effective Expiration Source Type Date Date MEDICAID - MEDICAID [facility] STAR[facility]xMedicaid Med ical Contracted Center Problems Condition Condition Condition Status Onset Resolution Last Treating Co mments Source Name Details Category Date Date Treatment Clinician Date 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[facility] (Michelle-Par (Michelle-Par 04-19 [facility] - kinson-Whi kinson-Whi 00:00: Me dical te te 00 Center syndrome) syndrome) Hemorrhagi Hemorrhagi Problem Active [facility] c cyst of c Cyst of 328 da ovary Ovary 00:00: Medical Group Oligomenor Oligomenor Problem Active [facility] raymond raymond 3-28 da 00:00: Medical Group Abnormal Abnormal Problem Active [facility] uterine Uterine 3 da bleeding Bleeding 00:00: Medica l Group Mild Mild Problem Active [facility] pre-eclamp Pre-eclamp 6-02 da atif atif 00:00: Medical Group - - Problem Active [facility] induced induced 4-19 da hypertensi Hypertensi 00:00: Me dical on on Group Acute Acute Problem Active 2014-07 [facility] cervicitis Cervicitis 1-12 da 00:00: Medical 00 Group 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 Syndrome da Medical Group Constipati Constipati Problem Active [facility] on on da Medical Group Mild Mild Problem Active [facility] hyperemesi Hyperemesi da s-not s-not Medical delivered Delivered Grou p Threatened Threatened Problem Active [facility] premature Premature da labor - Labor - Medical not Not Group delivered Delivered Acute Acute Problem Active [facility] cystitis Cystitis da in in Medical , , Gr oup antepartum Antepartum 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 Social History Social Habit Start Date Stop Date Quantity Comments Source Sex Assigned At [facility] Alcohol Comment 2019-04-18 2019-04-[address] [facility] - 00:00:00 00:00:00 [facility] Smoking Status Start Date Stop Date Source Never smoker [facility] Medications Ordered Filled Start Stop Current Ordering Indication Dosage Frequency Signature Comments Components Source Medication Medication Date Date Medication? Clinician (SIG) Name Name Rica Strauss No Rica Bone agor (28) 0.25 (28) 0.25 (28) 0.25 da mg-35 mcg mg-35 mcg mg-35 mcg Medical tablet Take tablet Take tablet Group 1 tablet 1 tablet Take 1 every day every day tablet by oral by oral every day route. route. by oral route. Vital Signs Vital Name Observation Time Observation Value Comments Source BP Diastolic 2018-12-24 00:00:00 73 mm[facility]Hg[facility] Height 2018-12-24 00:00:00 62 [in_i] [facility] BMI (Body Mass 2018-12-24 00:00:00 23.7 kg/m2 [facility] Medical Index) Group BP Systolic 2018-12-24 00:00:00 133 mm[Hg] [facility] Body Weight 2018-12-24 00:00:00 129.7 [lb_av] [facility] BP Diastolic 2018-10-20 00:00:00 76 mm[Hg] [facility] Height 2018-10-20 00:00:00 62 [in_i] [facility] BMI (Body Mass 2018-10-20 00:00:00 23.1 kg/m2 [facility] Medical Index) Group BP Systolic 2018-10-20 00:00:00 120 mm[Hg] [facility] Body Weight 2018-10-20 00:00:00 126.5 [lb_av] [facility] Systolic blood 2019-04-20 07:10:00 125 mm[Hg] [facility] Diastolic blood 2019-04-20 07:10:00 60 mm[Hg] [facility] Heart rate 2019-04-20 07:10:00 79 /min [facility] Body temperature 2019-04-20 07:10:00 36.67 Caitlin [facility] Respiratory rate 2019-04-20 07:10:00 18 /min [facility] Body weight Measured 2019-04-20 07:10:00 55.112 kg [facility] BMI 2019-04-20 07:10:00 22.96 kg/m2 [facility] Oxygen saturation in 2019-04-20 07:10:00 100 /min [facility] Arterial blood by Medical Ce nter Pulse oximetry Body height 2019-04-19 06:25:00 154.9 cm [facility] Procedures Procedure Date / Time Performing Clinician Source Performed RHYTHM STRIP - SCAN 2019-04-25 15:33:24 Provider, Default [facility] RHYTHM STRIP - SCAN 2019-04-21 13:32:00 Provider, [facility] CARDIAC CATH REPORT - 2019-04-21 13:31:58 Provider, [facility] TRANSFUSION SERVICE 2019-04-20 17:51:54 Provider, [facility] REPORT - SCAN [facility] HEMOGLOBIN AND 2019-04-20 04:45:00 Antoni Park Dylan [facility] PROTHROMBIN TIME/INR 2019-04-20 04:44:00 Antoni Park [facility] ELECTROLYTE PANEL 2019-04-20 04:44:00 Antoni Park [facility] BUN 2019-04-20 04:44:00 Antoni Park [facility] CREATININE 2019-04-20 04:44:00 Antoni Park [facility] EPS & ABLATION 2019-04-19 07:25:[address] [facility] POCT , URINE 2019-04-19 07:10:00 Antoni Park [facility] ABORH, MANUAL 2019-04-19 07:05:00 Vianey Pegeuro [facility] ECG 12-LEAD 2019-04-19 07:04:57 Unknown, Hl7 [facility] BASIC METABOLIC PANEL 2019-04-19 06:44:00 Antoni Park [facility] (7) Medical Center MAGNESIUM 2019-04-19 06:44:00 Antoni Park [facility] CBC (HEMOGRAM ONLY) 2019-04-19 06:44:00 Antoni Park [facility] TYPE AND SCREEN, 2019-04-19 06:44:[address] [facility] MR PELVIS WITH & WITHOUT 2019-03-02 11:30:00 Nelson Libby David SAWYER I [facility] IV CONTRAST [facility] US, transvaginal 2018-10-20 00:00:00 Juni Ye[facility] Heart Surgery 2014-08-16 00:00:00 [facility] Plan of Care Planned Activity Planned Date Details Comments Source Diagnostic Test 2018-12-24 urinalysis, [facility] Pending 00:00:00 dipstick [code = Group urinalysis, dipstick] Diagnostic Test 2018-12-24 test, [facility] Pending 00:00:00 urine [code = Group test, urine] Diagnostic Test 2018-12-24 beta-HCG, [facility] Pending 00:00:00 quantitative, serum Group or plasma [code = beta-HCG, quantitative, serum or plasma] Encounters Start End Encounter Admission Attending Care Care Encounter Source Date/Time Date/Time Type Type Clinicians Facility Department ID 2019-10-05 [facility] [id number] [place] 14:45:00 [facility] 2019-09-15 2019-09-15 Emergency E ELEANOR [facility] [id number] [place] 10:06:00 11:30:00 LAURA [facility] 2019-09-04 2019-09-04 Emergency E FARRUKH [facility] [id number] [place] 09:01:00 09:55:00 FARZANA Medica [facility] 2019-07-30 2019-07-31 Emergency E NIELS [facility] [id number] [place] 23:29:00 00:40:00 RUSTAM [facility] [place] 2019-07-08 2019-07-09 Emergency E BIANCA FAIZAN [facility] [id number] [place] 23:31:00 01:46:00 [facility] [place] 2019-04-22 2019-04-22 Emergency E LOCODANTE Yepez [facility] [id number] [place] 11:33:00 11:50:00 [facility] [place] 2019-03-21 2019-03-21 Office Capo BC [id number] 13:12:04 13:42:04 Visit Shanon, AMBULATOR [id number] Elva Y [id number] Noelle [id number] 2019-03-14 2019-03-14 Emergency E RISA [facility] [id number] [place] 10:55:00 13:00:00 YOAV [facility]ica [facility] [place] 2019-03-13 2019-03-13 Emergency E ARIANNE SHEARER [facility] [id number] [place] 07:11:00 09:06:00 [facility]ica [facility] [place] 2019-02-28 2019-02-28 Office Nelson [facility] [id number] 09:47:59 11:17:43 Visit Libby AMBULATOR [id number] Guillermina Y [id number] 2019-02-05 2019-02-05 Emergency E RISA [facility] [id number] [place] 07:32:00 09:45:00 YOAV [facility]ica [facility] [place] 2018-12-24 2018-12-24 Alfa [facility] [place] - [id number] [facility] 00:00:00 00:00:00 Discovery tre Blackburn MD: [address] [place] [id number] , Ph. [phone] 2018-12-02 2018-12-02 Emergency E EZIO JONES [facility] [id number] [place] 03:57:00 04:35:00 Medica l [place] 2018-10-20 2018-10-20 Alfa [facility] [place] - [id number] [place] [facility] 00:00:00 00:00:00 Discovery tre Blackburn MD: [address] [place] [id number] , Ph. [phone] 2018-10-04 2018-10-05 Outpatient E CK [facility] [id number] [place] 21:48:00 03:05:00 BRIAN [facility] [place] 2018-05-10 2018-05-10 Outpatient E OEI, [facility] [id number] [place] 12:53:00 14:30:00 [facility] Results Test Description Test Time Test Comments Results Result [facility] e Comments XR CHEST 1 VIEW 2019-07-31 LOCATION: 3 EXAM: PORTABLE 00:31:52 XR CHEST 1 VIEW PORTABLEHISTORY: [id number]: Dyspnea TECHNIQUE: Frontal view of the chest.COMPARISON: 03/14/2019FINDINGS:The lungs are well inflated and clear. No evidence of pneumothorax or pleural effusion. The heart is normal in size. The mediastinal contours are unremarkable. Osseous structures are intact. IMPRESSION:No evidence of acute cardiopulmonary disease. D-DIMER 2019-07-31 00:23:00 Test Item Value Reference Range Interpretation Comme nts D-DIMER (test code = DDI) <200 ng/mL D-DU 0-234 D-DIMER COMMENT (test code = DDCOM) *Level to rule out DVT or PE: < 235 ng/mL D-DU* COMPREHENSIVE METABOLIC [id number] 00:17:00 Test Item Value Reference Range Interpretation Comments GLUCOSE (test code = 06D) 91 mg/dL 75-100 SODIUM (test code = 01A) 139 mmol/L 136-145 POTASSIUM (test code = 01B) 3.5 mmol/L 3.6-5.1 L CHLORIDE (test code = 04A) 107 mmol/L [...] (test code = 11A) 1.1 mg/dL 0.2-1.0 H PROTEIN (test code = 07D) 7.5 g/dL 6.4-8.2 ALBUMIN (test code = 08D) 4.1 g/dL 3.5-4.8 GLOBULIN (test code = GLB) 3.4 g/dL 1.5-3.8 ALB/GLOB (test code = AGRR) 1.2 1.0-2.6 ALK PHOS (test code = 35A) 69 IU/L 42-121 AST (test code = 30A) 14 IU/L <=42 ALT (test code = 31A) 23 IU/L <=78 TROPONIN [id number] 00:14:00 Test Item Value Reference Range Interpretation Comments TROPONIN I (test code = A84) <0.015 ng/mL 0.000-0.045 URINE [id number] 00:03:00 Test Item Value Reference Range Interpretation Comments PREG UR (test code = PGU) NEGATIVE NEGATIVE CBC (INCLUDES AUTOMATED DIFFERENTIAL)2019-07-30 23:59:00 Test Item Value Reference Range Interpretation Comments WBC (test code = WBC) 8.4 10\S\3/uL 4.5-11.0 RBC (test code = RBC) 4.31 10\S\6/uL 4.30-5.70 HGB (test code = HBG) 13.6 g/dL 12.0-15.5 HCT (test code = HCT) 39.3 % 35.0-44.0 MCV (test code = MCV) 91.2 fL 81.0-99.0 MCH (test code = MCH) 31.6 pg 27.0-31.0 H MCHC (test code = MCHC) 34.6 g/dL [...] RBCMOR) NORMAL CT ABDOMEN AND PELVIS WITH [id number] 00:48:44EXAM: CT abdomen pelvis with contrastLOCATION: [id number]: Lower abdominal painTECHNIQUE: Contrast en hanced CT [...] fluid. IMPRESSION:No acute findings. Normal appendix.AMYLASE AND [id number] 00:09:00 Test Item Value Reference Range Interpretation Comments AMYLASE (test code = 10A) 62 U/L 28-100 LIPASE (test code = 60A) 128 IU/L 73-393 COMPREHENSIVE METABOLIC [id number] 00:09:00 Test Item Value Reference Range Interpretation Comments GLUCOSE (test code = 06D) 114 mg/dL 75-100 H SODIUM (test code = 01A) 138 mmol/L [...] (test code = GLB) 3.9 g/dL 1.5-3.8 H ALB/GLOB (test code = AGRR) 1.1 1.0-2.6 ALK PHOS (test code = 35A) 79 IU/L 42-121 AST (test code = 30A) 13 IU/L <=42 ALT (test code = 31A) 24 IU/L <=78 URINALYSIS WITH [id number] 00:05:00 Test Item Value Reference Range Interpretation Comments COLOR (test code = COLU) YELLOW [...] (test code = UA BLOOD) 2+ NEGATIVE A LEUK ES UR (test code = LEUK) 2+ NEGATIVE A WBC UR (test code = UWBC) 5 /HPF 0-5 RBC UR (test code = URBC) 6 /HPF 0-2 H EPITH UR (test code = UEPC) FEW /LPF FEW BACTERIA UR (test code = UBACT) FEW /HPF NONE A CAST UR (test code = CAST) /LPF NONE CRYSTAL UR (test code = CRYU) / LPF NONE MUCUS UR (test code = MUC) / HPF NONE AMORPH UR (test code = MELIDA) / HPF NONE TRICH UR (test code = UTRICH) /HPF NONE YEAST UR (test code = UY) /HPF NONE SPERM UR (test code = USPERM) /HPF NONE SERUM [id number] 00:01:00 Test Item Value Reference Range Interpretation Comments PREG SRM (test code = PGS) NEGATIVE NEGATIVE CBC (INCLUDES AUTOMATED DIFFERENTIAL)2019-07-08 23:54:00 Test Item Value Reference Range Interpretation Comments WBC (test code = WBC) 8.4 10\S\3/uL 4.5-11.0 RBC (test code = RBC) 4.48 10\S\6/uL 4.30-5.70 HGB (test code = HBG) 14.1 g/dL 12.0-15.5 HCT (test code = HCT) 41.6 % 35.0-44.0 MCV (test code = MCV) 92.9 fL 81.0-99.0 MCH (test code = MCH) 31.5 pg 27.0-31.0 H MCHC (test code = MCHC) 33.9 g/dL [...] RBC MORPH (test code = RBCMOR) NORMAL Prothrombin time/[id number] 05:36:00 Test Item Value Reference Range Interpretation Comments Protime (test code = 14.5 11.9- 14.2 H 5902-2) seconds INR (test code = 1.2 <=5.9 6301-6) JOSELYN (test code = JOSELYN) Effective 12/22/2018: PT Reference Range ChangeNew: 11.9-14.2 Previous: 11.7-14.7 RECOMMENDED COUMADIN/WARFARIN INR THERAPY RANGESSTANDARD DOSE: 2.0-3.0 Includes: PROPHYLAXIS for venous thrombosis, systemic embolization; TREATMENT for venous thrombosis and/or pulmonary embolus.HIGH RISK: Target INR is 2.5-3.5 for patients wiht mechanical heart valves. Within 24 hours, if on Coumadin Lab Interpretation Abnormal (test code = 10249-3) [id number] 05:36:00 Test Item Value Reference Range Interpretation Comments PROTIME (BEAKER) (test code = 14.5 seconds 11.9-14.2 H 759) INR (BEAKER) (test code = 370) 1.2 <=5.9 Effective 12/22/2018: PT Reference Range ChangeNew: 11.9-14.2 Previous: 11.7- 14.7RECOMMENDED COUMADIN/WARFARIN INR THERAPY RANGESSTANDARD DOSE: 2.0-3.0 Includes: PROPHYLAXIS for venous thrombosis, systemic embolization; TREATMENT for venous thrombosis and/or pulmonary embolus.HIGH RISK: Target INR is2.5-3.5 for patients wiht mechanical heart valves.Within 24 hours, if on Coumadin [id number] 05:22:00 Test Item Value Reference Range Interpretation Comments Sodium (test code = 2951-2) 139 meq/L 136-145 Potassium (test code = 2823-3) 3.8 meq/L 3.5-5.1 Chloride (test code = 2075-0) 109 meq/L 98-107 H CO2 (test code = 8-9) 23 meq/L Lab Interpretation (test code = Abnormal 14524-5) [facility] Services[facility]2019-09-25 05:22:00 Test Item Value Reference Range Interpretation Comments Creatinine (test 0.77 mg/dL 0.57-1.25 code = 2160-0) EGFR (test code = 96 mL/min/1.73 [place] [address]-8) NOT ACCURATE CREATININE CLEARANCE IN PREDICTING GLOMERULAR FILTRATION RATE . ESTIMATED GFR I S NOT APPLICABLE FOR DIALYSIS PATIEN TS. JOSELYN (test code = Specimen JOSELYN) slightly icteric [facility] ServicesBUN2019-09-25 05:22:00 Test Item Value Reference Range Interpretation Comments BUN (test code = 3094-0) 7 mg/dL 02-13 Lab Interpretation (test code = Normal 22330-7) [facility] Services[facility]2019-09-25 05:22:00 Test Item Value Reference Range Interpretation Comments BLOOD UREA NITROGEN (BEAKER) (test 7 mg/dL 02-13 code = 354) [id number] 05:22:00 Test Item Value Reference Range Interpretation Comments SODIUM (BEAKER) (test code = 381) 139 meq/L 136-145 POTASSIUM (BEAKER) (test code = 3.8 meq/L 3.5-5.1 379) CHLORIDE (BEAKER) (test code = 382) 109 meq/L 98-107 H CO2 (BEAKER) (test code = 355) 23 meq/L 22-29 [id number] 05:22:00 Test Item Value Reference Range Interpretation Comments CREATININE (BEAKER) 0.77 mg/dL 0.57-1.25 (test code = 358) EGFR (BEAKER) (test 96 mL/min/1.73 ESTIMA PRABHU GFR IS code = 1092) sq m NOT ACCURATE CREATININE CLEARANCE IN PREDICTING GLOMERULAR FILTRATION RATE . ESTIMATED GFR I S NOT APPLICABLE FOR DIALYSIS PATIEN TS. Specimen slightly ictericHemoglobin and [id number] 05:11:00 Test Item Value Reference Range Interpretation Comments Hemoglobin (test code = 786-4) 13.1 11.2- 15.7 GM/DL Hematocrit (test code = 4544-3) 39.4 % 34.1-44.9 Lab Interpretation (test code = Normal 65672-0) [facility] ServicesHEMOGLOBIN AND [id number] 05:11:00 Test Item Value Reference Range Interpretation Comments HEMOGLOBIN (BEAKER) (test code = 13.1 GM/DL 11.2-15.7 410) HEMATOCRIT (BEAKER) (test code = 39.4 % 34.1-44.9 411) ECG 12 [id number] 13:51:11Interface, External Ris In - 04/19/2019 1:51 PM CDTVentricular Rate 70 BPMAtrial Rate 70 BPMP-R Interval 98 msQRS Duration 136 msQ-T Interval 414 msQTC Calculation(Bazett) 447 msP [place] 23 degreesR [place] -17 degreesT [place] 85 degreesNormal sinus rhythm with short NE and delta sjhuoYgrce-Ssapszbec-IkygpAflptizq ECGNo previous ECGs availableConfirmed by MD ELLIOTT, ALIYA ([id number]) on 04/19/2019 1:51:07 [facility] Type and screen, [id number] 07:59:00 Test Item Value Reference Range Interpretation Comments ABO/RH AUTOMATED (BEAKER) (test O POSITIVE code = 2260) Ab Scrn (test code = 890-4) NEGATIVE [facility] ServicesABORH, [id number] 07:36:00 Test Item Value Reference Range Interpretation Comments ABO Grouping (test code = 2588) O Rh Factor (test code = 2589) POS [facility] ServicesBasic metabolic [id number] 07:12:00 Test Item Value Reference Range Interpretation Comments Sodium (test code = 141 meq/L 330-536 5610-2) Potassium (test 3.5 meq/L 3.5-5.1 code = 2823-3) Chloride (test code 106 meq/L 98-107 = 2075-0) CO2 (test code = 25 meq/L 22-29 2027-9) BUN (test code = 12 mg/dL 7-21 3094-0) Creatinine (test 0.92 mg/dL 0.57-1.25 code = 2160-0) Glucose (test code 95 mg/dL 70-105 = 2345-7) Calcium (test code 9.6 mg/dL 8.4-10.2 = 47431-2) EGFR (test code = 78 mL/min/1.[place] [address]-6) NOT ACCURATE CREATININE CLEARANCE IN PREDICTING GLOMERULAR FILTRATION RATE . ESTIMATED GFR I S NOT APPLICABLE FOR DIALYSIS PATIEN TS. JOSELYN (test code = Specimen JOSELYN) slightly icteric [facility] ServicesMagnesium2019-09-24 07:12:00 Test Item Value Reference Range Interpretation Comments Magnesium (test code = 66421-0) 2.2 mg/dL 1.6-2.6 Lab Interpretation (test code = Normal 33264-9) [facility] ServicesMAGNESIUM2019-09-24 07:12:00 Test Item Value Reference Range Interpretation Comments MAGNESIUM (BEAKER) (test code = 2.2 mg/dL 1.6-2.6 627) BASIC METABOLIC [id number] 07:12:00 Test Item Value Reference Range Interpretation Comments SODIUM (BEAKER) 141 meq/L 136-145 (test code = 381) POTASSIUM (BEAKER) 3.5 meq/L 3.5-5.1 (test code = 379) CHLORIDE (BEAKER) 106 meq/L 98-107 (test code = 382) CO2 (BEAKER) (test 25 meq/L 22-29 code = 355) BLOOD UREA NITROGEN 12 mg/dL 7-21 (BEAKER) (test code = 354) CREATININE (BEAKER) 0.92 mg/dL 0.57-1.25 (test code = 358) GLUCOSE RANDOM 95 mg/dL 70-105 (BEAKER) (test code = 652) CALCIUM (BEAKER) 9.6 mg/dL 8.4-10.2 (test code = 697) EGFR (BEAKER) (test 78 mL/min/1.73 ESTIMA PRABHU GFR IS code = 1092) sq m NOT ACCURATE CREATININE CLEARANCE IN PREDICTING GLOMERULAR FILTRATION RATE . ESTIMATED GFR I S NOT APPLICABLE FOR DIALYSIS PATIEN TS. Specimen slightly ictericPOCT , [id number] 07:10:00 Test Item Value Reference Range Interpretation Comments Test Urine, POC (test Negative code = 1097392) Control line present?, POC (test Yes code = 0224193) Background clear?, POC (test code Yes = 2741044) UPT Cassette Lot #, POC (test code [id number] = 6836733) UPT Cassette Expiration Date, POC 2020-09-23 (test code = 6467153) [facility] (Hemogram only)2019-04-19 06:56:00 Test Item Value Reference Range Interpretation Comments WBC (test code = 6690-2) 6.2 3.5- 10.5 K/L RBC (test code = 789-8) 4.57 3.93- 5.22 M/L MCHC (test code = 786-4) 33.2 32.2- 35.5 GM/DL Hematocrit (test code = 4544-3) 42.5 % 34.1-44.9 MCV (test code = 787-2) 93.0 fL 79.4-94.8 MCH (test code = 785-6) 30.9 pg 25.6-32.2 RDW (test code = 788-0) 12.7 % 11.7-14.4 Platelets (test code = 777-3) 296 150- 450 K/CU MM MPV (test code = 88350-5) 10.7 fL 9.4-12.3 nRBC (test code = 413) 0 0- 0 /100 WBC Lab Interpretation (test code = Normal 11004-7) [facility] (HEMOGRAM ONLY)2019-04-19 06:56:00 Test Item Value Reference Range Interpretation Comments WHITE BLOOD CELL COUNT (BEAKER) 6.2 K/ L 3.5-10.5 (test code = 775) RED BLOOD CELL COUNT (BEAKER) 4.57 M/ L 3.93-5.22 (test code = 761) HEMOGLOBIN (BEAKER) (test code = 14.1 GM/DL 11.2-15.7 410) HEMATOCRIT (BEAKER) (test code = 42.5 % 34.1-44.9 411) MEAN CORPUSCULAR VOLUME (BEAKER) 93.0 fL 79.4-94.8 (test code = 753) MEAN CORPUSCULAR HEMOGLOBIN 30.9 pg 25.6-32.2 (BEAKER) (test code = 751) MEAN CORPUSCULAR HEMOGLOBIN CONC 33.2 GM/DL 32.2-35.5 (BEAKER) (test code = 752) RED CELL DISTRIBUTION WIDTH 12.7 % 11.7-14.4 (BEAKER) (test code = 412) PLATELET COUNT (BEAKER) (test 296 K/CU MM 150-450 code = 756) MEAN PLATELET VOLUME (BEAKER) 10.7 fL 9.4-12.3 (test code = 754) NUCLEATED RED BLOOD CELLS 0 /100 WBC 0-0 (BEAKER) (test code = 413) BRAIN NATRIURETIC [id number] 12:46:00 Test Item Value Reference Range Interpretation Comments proBNP (test code = PBNP) 15 pg/mL 0-125 AMYLASE AND [id number] 12:39:00 Test Item Value Reference Range Interpretation Comments AMYLASE (test code = 10A) 39 U/L 28-100 LIPASE (test code = 60A) 76 IU/L 73-393 COMPREHENSIVE METABOLIC [id number] 12:39:00 Test Item Value Reference Range Interpretation Comments GLUCOSE (test code = 06D) 81 [...] (test code = 11A) 3.3 mg/dL 0.2-1.0 H PROTEIN (test code = 07D) 7.6 g/dL 6.4-8.2 ALBUMIN (test code = 08D) 4.4 g/dL 3.5-4.8 GLOBULIN (test code = GLB) 3.2 g/dL 1.5-3.8 ALB/GLOB (test code = AGRR) 1.4 1.0-2.6 ALK PHOS (test code = 35A) 64 IU/L 42-121 AST (test code = 30A) 19 IU/L <=42 ALT (test code = 31A) 31 IU/L <=78 SERUM [id number] 12:37:00 Test Item Value Reference Range Interpretation Comments PREG SRM (test code = PGS) NEGATIVE NEGATIVE CARDIAC [id number] 12:37:00 Test Item Value Reference Range Interpretation Comments TROPONIN I (test code = A84) <0.015 ng/mL 0.000-0.045 URINALYSIS WITH [id number] 12:34:00 Test Item Value Reference Range Interpretation Comments COLOR (test code = COLU) DK YELLOW YELLOW A CLARITY (test code = CLA) CLEAR CLEAR GLUCOSE UR (test code = UA GLUCOSE) NEGATIVE NEGATIVE BILI UR (test code = BILE) NEGATIVE NEGATIVE KETONES UR (test code = LUIS) 1+ NEGATIVE A SP GRAVITY (test code = SPGR) 1.029 1.005-1.030 PH UR (test code = PH) 6.0 4.5-8.0 PROTEIN UR (test code = PU) TRACE NEGATIVE A UROBIL UR (test code = UROQ) 0.2 [...] UR (test code = USPERM) /HPF NONE [id number] 12:33:00 Test Item Value Reference Range Interpretation Comments MAGNESIUM (test code = 48A) 2.4 mg/dL 1.8-2.4 PRO TIME AND [id number] 12:28:00 Test Item Value Reference Range Interpretation Comments PT (test code = 13.8 s 9.8-13.6 H TT) INR (test code = 1.2 INR) INRH (test code = SUGGESTED INRH) THERAPEUTIC RANGE FOR INR: 2.5 - 3.5 For Patients with Prosthetic Valves or Patients with recurrent Thromboembolic Events 2.0 - 3.0 For Most Other Applications PTT (test code = 34.4 s 20.2-38.0 PTT) PTTH (test code = To monitor the PTTH) effectiveness of heparin, we offer the Anti-Xa (Heparin Assay). It can be used for either unfractionated or LMW Heparin. Order Code is ANTI-XA CBC (INCLUDES AUTOMATED DIFFERENTIAL)2019-03-14 12:24:00 Test Item Value Reference Range Interpretation Comments WBC (test code = WBC) 7.0 10\S\3/uL 4.5-13.0 RBC (test code = RBC) 4.91 10\S\6/uL 4.30-5.70 HGB (test code = HBG) 15.4 g/dL 12.0-15.5 HCT (test code = HCT) 43.9 % 35.0-44.0 MCV (test code = MCV) 89.4 fL 81.0-99.0 MCH (test code = MCH) 31.4 pg 27.0-31.0 H MCHC (test code = MCHC) 35.1 g/dL [...] code = RBCMOR) NORMAL XR CHEST 2 [id number] 11:40:31Exam: Chest x-ray 2 viewsHISTORY: Chest painLocation: [id number]:The heart size is normal and lung soria are clear. Osseous structures areintact.IMPRESSION:1. Normal chest. No change since 05/10/18.DRUGS OF ABUSE 2019-03-13 08:55:00 Test Item Value Reference Range Interpretation Comments DRUG SCRN (test code URINE DRUG SCREEN = HDOA) This is an unconfirmed screening result and should not be used for non-medical purposes CANNABINOD (test code POSITIVE NEGATIVE A = 88C) AMPHETAMINE (test POSITIVE NEGATIVE A code = 84A) BENZODIAZP (test code Negative NEGATIVE = 86A) BARBITURAT (test code Negative NEGATIVE = 85A) OPIATES (test code = Negative NEGATIVE 92B) COCAINE (test code = Negative NEGATIVE 87A) PHENCYCLID (test code Negative NEGATIVE = 66A) METHADONE (test code Negative NEGATIVE = 64A) DOAH (test code = DOAH.) *URINE DRUG SCREEN Cut-off values are as follows: Cannabinoids 50 ng/mL Cocaine 300 ng/mL Amphetamines 1000 ng/mL Phencyclidine 25 ng/mL Benzodiazepines 200 ng.mL Methadone 300 ng/mL Barbiturates 200 ng/mL Opiates 2000 ng/mL URINALYSIS 2019-03-13 08:47:00 Test Item Value Reference Range Interpretation Comments COLOR (test code = COLU) YELLOW YELLOW CLARITY (test code = CLA) CLEAR CLEAR GLUCOSE UR (test code = UA GLUCOSE) NEGATIVE NEGATIVE BILI UR (test code = BILE) NEGATIVE NEGATIVE KETONES UR (test code = LUIS) 2+ NEGATIVE A SP GRAVITY (test code = SPGR) 1.010 [...] = WAUAM) NO NO THYROID PANEL/SCREEN (TSH) *WW*2019-03-13 08:35:00 Test Item Value Reference Range Interpretation Comments TSH (test code = WTSH) 2.880 uIU/mL 0.358-3.740 COMPREHENSIVE METABOLIC ARCHER 2019-03-13 08:11:00 Test Item Value Reference Range Interpretation Comments GLUCOSE (test code = 06D) 100 mg/dL 75-100 SODIUM (test code = 01A) 138 mmol/L 136-145 POTASSIUM (test code = 01B) 3.3 mmol/L 3.6-5.1 L CHLORIDE (test code = 04A) 100 mmol/L 98-107 CO2 (test code = 02A) 24 mmol/L 22-32 ANION GAP (test code = ANG) 17.3 mmol/L BUN (test code = 05D) 8 mg/dL 7-18 CREATININE (test code = 03E) 1.2 mg/dL 0.4-1.1 H BUN/CREA (test code = BCR) 7 12-20 L CALCIUM (test code = 09D) 9.9 mg/dL 8.3-9.5 H BILI TOTAL (test code = 11A) 3.5 mg/dL 0.2-1.0 H PROTEIN (test code = 07D) 9.2 g/dL 6.4-8.2 H ALBUMIN (test code = 08D) 5.2 g/dL 3.5-4.8 H GLOBULIN (test code = GLB) 4.0 g/dL 1.5-3.8 H ALB/GLOB (test code = AGRR) 1.3 1.0-2.6 ALK PHOS (test code = 35A) 73 IU/L 42-121 AST (test code = 30A) 15 IU/L <=42 ALT (test code = 31A) 25 IU/L <=78 PRO TIME AND PTT *WW*2019-03-13 08:10:00 Test Item Value Reference Range Interpretation Comments PT (test code = 14.0 s 9.8-13.6 H TT) INR (test code = 1.2 INR) INRH (test code = SUGGESTED INRH) THERAPEUTIC RANGE FOR INR: 2.5 - 3.5 For Patients with Prosthetic Valves or Patients with recurrent Thromboembolic Events 2.0 - 3.0 For Most Other Applications PTT (test code = 31.3 s 20.2-38.0 PTT) PTTH (test code = To monitor the PTTH) effectiveness of heparin, we offer the Anti-Xa (Heparin Assay). It can be used for either unfractionated or LMW Heparin. Order Code is ANTI-XA SERUM MONOCLONAL *WW*2019-03-13 08:05:00 Test Item Value Reference Range Interpretation Comments PREG SRM (test code = PGS) NEGATIVE NEGATIVE MAGNESIUM WW2019-03-13 07:59:00 Test Item Value Reference Range Interpretation Comments MAGNESIUM (test code = 48A) 2.0 mg/dL 1.8-2.4 CBC (INCLUDES AUTOMATED DIFFERENTIAL)*[id number] 07:51:00 Test Item Value Reference Range Interpretation Comments WBC (test code = WBC) 11.3 10\S\3/uL 4.5-13.0 RBC (test code = RBC) 5.02 10\S\6/uL 4.30-5.70 HGB (test code = HBG) 15.9 g/dL 12.0-15.5 H HCT (test code = HCT) 45.0 % 35.0-44.0 H MCV (test code = MCV) 89.6 fL 81.0-99.0 MCH (test code = MCH) 31.7 pg 27.0-31.0 H MCHC (test code = MCHC) 35.3 g/dL 32.0-36.0 RDW (test code = RDW) 12.4 % 11.5-14.5 PLT (test code = PLT) 346 10\S\3/uL 130-400 MPV (test code = MPV) 10.8 fL 9.4-12.4 NEUTROP # (test code = NE#) 8.9 10\S\3/uL 1.6-8.0 H LYMPH # (test code = LY#) 1.6 10\S\3/uL 1.1-3.5 MONOCYTE # (test code = MO#) 0.8 10\S\3/uL 0.0-1.1 EOSINOPH # (test code = EO#) 0.0 10\S\3/uL 0.0-0.7 BASOPHIL # (test code = BA#) 0.0 10\S\3/uL 0.0-0.3 IG # (test code = IG#) 0.03 10\S\3/uL 0.00-0.06 NRBC # (test code = NRBC#) 0.00 10\S\3/uL 0.00-0.01 NEUTROPH % (test code = NE%) 78.6 % 35.0-73.0 H LYMPH % (test code = LY%) 14.0 % 20.0-55.0 L MONO % (test code = MO%) 6.7 % 2.5-10.0 EOSINOPH % (test code = EO%) 0.0 % 0.0-5.0 BASOPHIL % (test code = BA%) 0.4 % 0.0-2.0 IG % (test code = IG%) 0.3 % 0.0-0.8 NRBC% (test code = NRBC%) 0.0 % 0.0-0.2 MANDIFF (test code = WMDIFF) NO NO RBC MORPH (test code = NORMAL WRBCMOR) MR, PELVIS, WITHOUT / WITH IV [id number] 14:13:00FINAL REPORT EXAM: Lumbosacral plexus without and [...] No lumbosacral plexus abnormalities. Signed: Rubén Varela Verified Date/Time: 03/02/2019 14:13:39 Reading Loca tion: [facility] [address] [place] [address] MR pelvis without & with IV contrast 2019-03-02 14:13:00Interface, External Ris In - 03/02/2019 2:15 PM CDTFINAL REPORT EXAM: Lumbosacral plexus without and with IV contrast. INDICATION: Concern for right femoral neuropathy. COMPARISON: None. TECHNIQUE: 2-D and 3-D coronal T2 with fat saturation, coronal STIR, [...] No marrow signal changes within the included l umbar spine, sacrum and pelvis. Normal lumbar lordotic curvature is maintained. Lumbar canal and foramina are patent. IMPRESSION: No lumbosacral plexus abnormalities. Signed: Rubén Varela Verified Date/Time: 03/02/2019 14:13:39 Reading Location: [facility] [address] [place] [address] [facility]PA [id number] 09:16:58EXAM: Chest and abdomen series, 3 viewsDictation location: [id number]: Upper abdominal painCOMPARISON: NoneDISCUSSION: An upright view [...] mild retained stool within the colon.AMYLASE AND [id number] 09:04:00 Test Item Value Reference Range Interpretation Comments AMYLASE (test code = 10A) 46 U/L 28-100 LIPASE (test code = 60A) 88 IU/L 73-393 COMPREHENSIVE METABOLIC [id number] 09:04:00 Test Item Value Reference Range Interpretation Comments GLUCOSE (test code = 06D) 101 mg/dL 75-100 H SODIUM (test code = 01A) 140 mmol/L [...] (test code = 11A) 1.7 mg/dL 0.2-1.0 H PROTEIN (test code = 07D) 8.4 g/dL 6.4-8.2 H ALBUMIN (test code = 08D) 4.5 g/dL 3.5-4.8 GLOBULIN (test code = GLB) 3.9 g/dL 1.5-3.8 H ALB/GLOB (test code = AGRR) 1.2 1.0-2.6 ALK PHOS (test code = 35A) 74 IU/L 42-121 AST (test code = 30A) 23 IU/L <=42 ALT (test code = 31A) 36 IU/L <=78 [id number] 08:59:00 Test Item Value Reference Range Interpretation Comments MAGNESIUM (test code = 48A) 2.2 mg/dL 1.8-2.4 SERUM [id number] 08:57:00 Test Item Value Reference Range Interpretation Comments PREG SRM (test code = PGS) NEGATIVE NEGATIVE URINALYSIS WITH [id number] 08:57:00 Test Item Value Reference Range Interpretation Comments COLOR (test code = COLU) YELLOW YELLOW CLARITY (test code = CLA) CLOUDY CLEAR A GLUCOSE UR (test code = UA GLUCOSE) NEGATIVE NEGATIVE BILI UR (test code = BILE) NEGATIVE NEGATIVE KETONES UR (test code = LUIS) NEGATIVE NEGATIVE SP GRAVITY (test code = SPGR) 1.023 1.005-1.030 PH UR (test code = PH) 7.0 4.5-8.0 PROTEIN UR (test code = PU) TRACE NEGATIVE A UROBIL UR (test code = UROQ) 1.0 [...] DIFFERENTIAL)2019-02-05 08:50:00 Test Item Value Reference Range Interpretation Comments WBC (test code = WBC) 5.8 [...] RBCMOR) NORMAL Urinalysis macro (dipstick) panel - [id number] 15:18:00 Test Item Value Reference Range Interpretation Comments Leukocytes (test code = Leukocytes) Negative Nitrite (test code = Nitrite) negative Urobilinogen (test code = .2 Urobilinogen) Protein (test code = Protein) Trace pH (test code = pH) 6.0 Blood (test code = Blood) Negative Specific Lorane (test code = 1.015 Specific Lorane) Ketone (test code = Ketone) Negative Bilirubin (test code = Bilirubin) Negative Glucose (test code = Glucose) Negative Appearance (test code = Appearance) Clear Color (test code = Color) Yellow [facility] [id number] 15:17:00 Test Item Value Reference Range Interpretation Comments Test (test code = negative Test) [facility]villeChoriogonadotropin.beta subunit [Units/volume] in Serum or [id number] 01:46:00 Test Item Value Reference Range Interpretation Comments HCG quantitative (test code = HCG <0.1 0-5 quantitative) [facility] *OW*2018-10-05 01:20:47LOCATION: [id number]: 18-year-old female who presents with pelvic pain.COMMENT:Sonographic [...] of a hemorrhagic cyst. This cyst measures [id number] mm in diameter.Free fluid is seen in the pelvic cul-de-sac in keeping with recent CT study.IMPRESSION:A complex appearing cyst having the appearance of a hemorrhagic cyst is seen inthis patient's left ovary. A small volume of free fluid is also seen in thepelvic cul-de-sac.Otherwise is pelvic ultrasound examination is unremarkable.CT ABDOMEN AND PELVIS WITH CONTRAST *OW*2018-10-05 00:17:42LOCATION: [id number]: CT ABDOMEN AND PELVIS WITH CONTRAST *OW*HISTORY: [id number]: Lower abdominal pain TECHNIQUE: Axial imaging of [...] OW2018-10-04 22:26:00 Test Item Value Reference Range Interpretation Comments SODIUM (test code = FE) 142 mmol/L 138-146 POTASSIUM (test code = KI) 3.5 mmol/L 3.5-4.9 CHLORIDE (test code = CLI) 102 mmol/L 98-109 CA IONIZED (test code = ICAI) 1.10 mmol/L 1.12-1.32 L GLUCOSE (test code = GLUI) 95 mg/dL [...] OW2018-10-04 22:24:00 Test Item Value Reference Range Interpretation Comments PREG UR (test code = PGU) Negative NEGATIVE CBC (INCLUDES AUTOMATED DIFFERENTIAL) *2018-10-04 22:22:00 Test Item Value Reference Range Interpretation Comments WBC (test code = WBC) 12.5 10\S\3/uL 4.5-13.0 RBC (test code = RBC) 4.70 10\S\6/uL 4.30-5.70 HGB (test code = HBG) 15.7 g/dL 12.0-15.5 H HCT (test code = HCT) 44.6 % 35.0-44.0 H MCV (test code = MCV) 94.8 fL 81.0-99.0 MCH (test code = MCH) 33.4 pg 27.0-31.0 H MCHC (test code = MCHC) 35.2 g/dL 32.0-36.0 RDW (test code = RDW) 14.5 % 11.5-14.5 PLT (test code = PLT) 295 10\S\3/uL 130-400 MPV (test code = OMPV) 8.3 fL 6.2-10.2 NEUTROP # (test code = NE#) 9.6 10\S\3/uL 1.6-8.0 H LYMPH # (test code = LY#) 2.2 10\S\3/uL 1.1-3.5 MID # (test code = GMID#) 0.8 10\S\3/uL 0.0-1.1 GRA % (test code = GRA%) 76.4 % 35.0-73.0 H LYMPH % (test code = GLY%) 17.2 % 20.0-55.0 L MID % (test code = GMID%) 6.4 % 0.0-10.0 URINALYSIS W/O MICROSCOPICOW2018-10-04 22:18:00 Test Item Value Reference Range Interpretation Comments COLOR (test code = Yellow YELLOW COLU) CLARITY (test code = Cloudy CLEAR CLA) GLUCOSE UR (test Negative NEGATIVE code = UA GLUCOSE) BILI UR (test code = Negative NEGATIVE BILE) KETONES UR (test Negative NEGATIVE code = LUIS) SP GRAVITY (test 1.025 1.005-1.030 code = SPGR) PH UR (test code = 7.0 4.5-8.0 PH) PROTEIN UR (test Negative NEGATIVE code = PU) NITRITE UR (test Negative NEGATIVE code = NITRITE) UROBIL UR (test code 1.0 E.U./dL = GUROQ) UROBIL UR (test code UROBILINOGEN = GUROQC) REFERENCE RANGE 0.2 - 1.0 EU/dL BLOOD UR (test code Negative NEGATIVE = UA BLOOD) LEUK ES UR (test Negative NEGATIVE code = LEUK) DRUGS OF ABUSE*OW*2018-05-10 13:45:00 Test Item Value Reference Range Interpretation Comments DRUG SCRN (test code URINE DRUG SCREEN = HDOA) This is an unconfirmed screening result and should not be used for non-medical purposes PHENCYCLID (test Negative NEGATIVE code = GPCP) BENZODIAZE (test Negative NEGATIVE code = GBZO) COCAINE (test code = Negative NEGATIVE GCOC) AMPHETAMIN (test Negative NEGATIVE code = GAMP) THC (test code = Negative NEGATIVE GTHC) OPIATES (test code = Negative NEGATIVE SHADY) BARBITURAT (test Negative NEGATIVE code = GBAR) TCA (test code = Negative NEGATIVE GTCA) DOAH (test code = URINE DRUG DOAH) CREEN CUT OFF VALUES Amphetamines 1000 ng/mL Barbituates 300 ng/mL Benzodiazepines 300 ng/mL Cocaine 300 ng/mL Opiates 300 ng/mL Phencyclidine 25 ng/mL THC 50 ng/mL Tricyclic Antidepressants 1000 ng/mL CHEM8+ i-STAT OW2018-05-10 13:41:00 Test Item Value Reference Range Interpretation Comments SODIUM (test code = FE) 140 [...] *2018-05-10 13:40:00 Test Item Value Reference Range Interpretation Comments WBC (test code = WBC) 5.7 10\S\3/uL 4.5-13.0 RBC (test code = RBC) 4.71 10\S\6/uL 4.30-5.70 HGB (test code = HBG) 15.6 g/dL 12.0-15.5 H HCT (test code = HCT) 44.0 % 35.0-44.0 MCV (test code = MCV) 93.4 fL 81.0-99.0 MCH (test code = MCH) 33.1 pg 27.0-31.0 H MCHC (test code = MCHC) 35.5 g/dL 32.0-36.0 RDW (test code = RDW) 13.0 % 11.5-14.5 PLT (test code = PLT) 251 10\S\3/uL 130-400 MPV (test code = OMPV) 8.6 fL 6.2-10.2 NEUTROP # (test code = NE#) 0.0 10\S\3/uL 1.6-8.0 L LYMPH # (test code = LY#) 1.6 10\S\3/uL 1.1-3.5 MID # (test code = GMID#) 0.6 10\S\3/uL 0.0-1.1 GRA % (test code = GRA%) 62.4 % 35.0-73.0 LYMPH % (test code = GLY%) 27.8 % 20.0-55.0 MID % (test code = GMID%) 9.8 % 0.0-10.0 XR CHEST 1 VIEW *OW*2018-05-10 13:11:28EXAM: XR CHEST 1 VIEW *OW*.LOCATION: D4.HISTORY: [id number]: Chest pain.COMPARISON: None.TECHNIQUE: Single AP view of the chest was obtained. FINDINGS:The heart is normal in size. The lungs are clear. Noacute osseous abnormalityis identified.IMPRESSION:No acute cardiopulmonary abnormality.
== END 2020-01-09 17:47 | disposition home or self-care (01) ==
LOC: ER 16:51
DX: S30.851A Superficial foreign body of abdominal wall, initial encounter (principal); Z23 Encounter for immunization
CPT/HCPCS: 99283